=== PATIENT | male | born 1985 | race African-American/Black ===

== ENCOUNTER 2016-09-04 13:00 | Inpatient (IN) | payer OTHER ==
[2016-09-04] MEDS ORDERED: ONDANSETRON 4 MG/2 ML VIAL IVP STA ×2 (13:41→14:44)
--- NOTE | 2016-09-04 13:43 | ED ---
General Adult HPI - General Chief complaint: Nausea/Vomiting/Diarrhea Stated complaint: Headache/Not Feeling Well Time Seen by Provider: 09/04/16 13:32 Source: patient Mode of arrival: wheelchair Limitations: no limitations - History of Present Illness Initial comments: 31-year-old male history of insulin-dependent diabetes presently on Lantus and NovoLog 60 units of Lantus 8 units of NovoLog before each meal. Began onset of nausea vomiting last night chills hot and cold diarrhea. No known exposure to gastroenteritis. Has no earache sore throat runny nose no abdominal pain no blood in the stool black stools no urinary frequency urgency dysuria. - Related Data Home Medications Medication Instructions Recorded Confirmed Insulin Aspart [NovoLOG] 8 unit SQ TID 09/04/16 09/04/16 Insulin Glargine [Lantus] 24 unit SQ DAILY 09/04/16 09/04/16 Multivitamins, Thera [Multivitamin 1 tab PO DAILY 09/04/16 09/04/16 (formulary)] Allergies Allergy/AdvReac Type Severity Reaction Status Date / Time No Known Allergies Allergy Verified 09/04/16 14:48 Review of Systems ROS Statement: Those systems with pertinent positive or pertinent negative responses have been documented in the HPI. ROS Other: All systems not noted in ROS Statement are negative. Constitutional: Reports: chills, weakness. Denies: fever Eyes: Denies: eye discharge ENT: Denies: ear pain, throat pain Respiratory: Denies: cough Cardiovascular: Denies: chest pain Gastrointestinal: Denies: abdominal pain, nausea, vomiting, diarrhea Skin: Denies: rash Neurological: Denies: headache Psychiatric: Denies: anxiety, depression Hematological/Lymphatic: Denies: easy bleeding, easy bruising Past Medical History Past Medical History: Diabetes Mellitus History of Any Multi-Drug Resistant Organisms: None Reported Past Surgical History: No Surgical Hx Reported Past Psychological History: No Psychological Hx Reported Smoking Status: Never smoker Past Alcohol Use History: None Reported Past Drug Use History: None Reported General Exam Limitations: no limitations General appearance: alert, in no apparent distress Head exam: Present: atraumatic Eye exam: Present: PERRL, EOMI ENT exam: Present: normal oropharynx, mucous membranes moist, TM's normal bilaterally Respiratory exam: Present: normal lung sounds bilaterally Cardiovascular Exam: Present: regular rate, normal heart sounds GI/Abdominal exam: Present: soft, normal bowel sounds. Absent: distended, tenderness Neurological exam: Present: alert, CN II-XII intact Psychiatric exam: Present: normal affect, normal mood Skin exam: Present: warm, dry Course Vital Signs 09/04/16 09/04/16 09/04/16 13:09 15:00 16:29 Temperature 96.8 F L Pulse Rate 75 106 H 86 Respiratory 20 18 18 Rate Blood Pressure 145/83 146/87 123/72 O2 Sat by Pulse 98 100 100 Oximetry 09/04/16 18:01 Temperature Pulse Rate 89 Respiratory 18 Rate Blood Pressure 121/63 O2 Sat by Pulse 98 Oximetry Medical Decision Making - Medical Decision Making Despite IV fluids and antiemetics patient is continued be nauseated and vomiting is insulin-dependent diabetic he will need to stay for maintenance of hydration and control his diabetes will speak with the nurse practitioner for Dr. Horan in that he does not have a family doctor and will go to the hospitalist on-call - Lab Data Result diagrams: 09/04/16 14:20 09/04/16 14:20 Lab Results 09/04/16 09/04/16 Range/Units 14:20 14:20 WBC 9.9 (3.8-10.6) k/uL RBC 5.87 (4.30-5.90) m/uL Hgb 15.7 (13.0-17.5) gm/dL Hct 50.7 (39.0-53.0) % MCV 86.3 (80.0-100.0) fL MCH 26.7 (25.0-35.0) pg MCHC 30.9 L (31.0-37.0) g/dL RDW 12.4 (11.5-15.5) % Plt Count 289 (150-450) k/uL Neutrophils % 87 % Lymphocytes % 6 % Monocytes % 4 % Eosinophils % 1 % Basophils % 1 % Neutrophils # 8.6 H (1.3-7.7) k/uL Lymphocytes # 0.6 L (1.0-4.8) k/uL Monocytes # 0.4 (0-1.0) k/uL Eosinophils # 0.1 (0-0.7) k/uL Basophils # 0.1 (0-0.2) k/uL Sodium 141 (137-145) mmol/L Potassium 4.3 (3.5-5.1) mmol/L Chloride 99 (98-107) mmol/L Carbon Dioxide 27 (22-30) mmol/L Anion Gap 15 mmol/L BUN 11 (9-20) mg/dL Creatinine 0.74 (0.66-1.25) mg/dL Est GFR (MDRD) Af Amer >60 (>60 ml/min/1.73 sqM) Est GFR (MDRD) Non-Af >60 (>60 ml/min/1.73 sqM) Glucose 302 H (74-99) mg/dL Calcium 10.6 H (8.4-10.2) mg/dL Total Bilirubin 0.7 (0.2-1.3) mg/dL AST 21 (17-59) U/L ALT 34 (21-72) U/L Alkaline Phosphatase 79 (38-126) U/L Total Protein 8.0 (6.3-8.2) g/dL Albumin 4.9 (3.5-5.0) g/dL Disposition Clinical Impression: Persistent vomiting, Gastroenteritis, Insulin dependent diabetes mellitus Disposition: ADMITTED IP TO THIS HOSP Condition: Fair Time of Disposition: 18:59
[2016-09-04] MEDS: SODIUM CHLORIDE 0.9% 1,000 ML IV STA ×2 (14:23→17:57)
[2016-09-04 14:34] LABS: Basophils # (A) 0.1 k/uL (0-0.2); Basophils % (A) 1 %; CH 27.2; CHCM 31.6; Eosinophils # (A) 0.1 k/uL (0-0.7); Eosinophils % (A) 1 %; HCT 50.7 % (39.0-53.0); HDW 2.13; HGB 15.7 gm/dL (13.0-17.5); Luc # (Auto) 0.13; Luc % (Auto) 1; Lymphocytes # (A) 0.6 k/uL (1.0-4.8); Lymphocytes % (A) 6 %; MCH 26.7 pg (25.0-35.0); MCHC 30.9 g/dL (31.0-37.0); MCV 86.3 fL (80.0-100.0); Mean Platelet Volume 6.6; Monocytes # (A) 0.4 k/uL (0-1.0); Monocytes % (A) 4 %; Neutrophils # (A) 8.6 k/uL (1.3-7.7); Neutrophils % (A) 87 %; RBC 5.87 m/uL (4.30-5.90); RDW 12.4 % (11.5-15.5); WBC 9.9 k/uL (3.8-10.6); WBC (Perox) 9.78
[2016-09-04 14:45] LABS: ALT 34 U/L (21-72); AST 21 U/L (17-59); Alkaline Phosphatase 79 U/L (38-126); Anion Gap 15 mmol/L; Blood Urea Nitrogen 11 mg/dL (9-20); Calcium 10.6 mg/dL (8.4-10.2); Carbon Dioxide 27 mmol/L (22-30); Chloride 99 mmol/L (98-107); Glucose 302 mg/dL (74-99); Non-African American GFR(MDRD) >60 (>60 ml/min/1.73 sqM); Potassium 4.3 mmol/L (3.5-5.1); Sodium 141 mmol/L (137-145); Total Bilirubin 0.7 mg/dL (0.2-1.3)
[2016-09-04] MEDS ORDERED: INSULIN LISPRO (humaLOG) 300 UNIT/3 ML VIAL SQ ONE (15:41)
[2016-09-04] MEDS ORDERED: METOCLOPRAMIDE 5 MG/ML 2 ML VIAL IVP STA (15:42)
[2016-09-04] MEDS ORDERED: SODIUM CHLORIDE 0.9% 1,000 ML IV STA (15:42)
[2016-09-04] MEDS ORDERED: MECLIZINE 12.5 MG TAB PO STA (17:48)
[2016-09-04] MEDS ORDERED: NALOXONE 0.4 MG/ML 1 ML VIAL IV PRN (19:12)
[2016-09-04 19:19] LABS: Glucose,Whole Blood 181 mg/dL (75-99)
[2016-09-04] MEDS ORDERED: ONDANSETRON 4 MG/2 ML VIAL IVP PRN (20:04)
[2016-09-04 20:27] VITALS: BMI 22.8
[2016-09-04 20:40] LABS: Glucose,Whole Blood 188 mg/dL (75-99)
[2016-09-04] MEDS: LORazepam 2 MG/ML SYRINGE IV PRN (21:02)
[2016-09-04] MEDS: DEXTROSE 5%-0.45% NACL 1,000 ML IV SCH (21:15)
[2016-09-04] MEDS: INSULIN LISPRO (humaLOG) 300 UNIT/3 ML VIAL SQ SCH (21:15)
[2016-09-04] MEDS: METOCLOPRAMIDE 5 MG/ML 2 ML VIAL IVP PRN (21:15)
[2016-09-04] MEDS ORDERED: MELATONIN 3 MG TABLET PO PRN (21:30)
[2016-09-05] MEDS: ONDANSETRON 4 MG/2 ML VIAL IVP PRN ×4 (00:44→19:58)
[2016-09-05 01:45] LABS: Glucose,Whole Blood 241 mg/dL (75-99)
[2016-09-05] MEDS: INSULIN LISPRO (humaLOG) 300 UNIT/3 ML VIAL SQ SCH ×4 (01:45→20:08)
[2016-09-05] MEDS: METOCLOPRAMIDE 5 MG/ML 2 ML VIAL IVP PRN ×4 (03:04→21:10)
[2016-09-05 06:48] LABS: Glucose,Whole Blood 241 mg/dL (75-99)
[2016-09-05] MEDS: DEXTROSE 5%-0.45% NACL 1,000 ML IV SCH (08:54)
[2016-09-05] MEDS: INSULIN GLARGINE 100 UNIT/ML 10 ML VIAL SQ SCH (09:03)
[2016-09-05 12:04] LABS: Glucose,Whole Blood 190 mg/dL (75-99)
[2016-09-05 12:26] LABS: Hemoglobin A1C 9.6 % (4.2-6.1)
[2016-09-05 17:01] LABS: Glucose,Whole Blood 189 mg/dL (75-99)
[2016-09-05 20:13] LABS: Glucose,Whole Blood 196 mg/dL (75-99)
[2016-09-05] MEDS: LORazepam 2 MG/ML SYRINGE IV PRN (21:10)
--- NOTE | 2016-09-05 22:35 | HP ---
DATE OF ADMISSION: DATE OF SERVICE: 09/05/2016 CHIEF COMPLAINT: Nausea, vomiting and diarrhea. HISTORY OF PRESENTING ILLNESS: Mr. Mix is a 31-year-old male with a past medical history of insulin-dependent diabetes mellitus, coming into the hospital with the chief complaint of nausea, vomiting and diarrhea. The patient states that he woke up this morning feeling nauseated and has been throwing up continuously and was also having diarrhea. Patient felt weak and dehydrated and so came into the hospital for further evaluation. Patient denies having any chest pain, difficulty in breathing. No cough. No fevers. Complains of some abdominal soreness due to continuous vomiting. No blood in the stool. Patient denies having any dysuria. Patient is a type 1 diabetic and on insulin. He states he does not have a primary care physician and that his sister is also a diabetic, so he uses her insulin. His hemoglobin A1c is 9.6, poorly controlled. REVIEW OF SYSTEMS: All 13 systems are reviewed and negative except as mentioned in the HPI. Past medical history is significant for type 1 diabetes mellitus. PATIENT'S HOME MEDICATIONS: Lantus 24 units and NovoLog 8 units 3 times a day with meals and multivitamins. ALLERGIES: NO KNOWN DRUG ALLERGIES. PAST SURGICAL HISTORY: None. SOCIAL HISTORY: He denies having any smoking or alcohol abuse. FAMILY HISTORY: Sister has diabetes mellitus. On examination, patient's vital signs are temperature 98.8, heart rate 64, respiratory rate 16, blood pressure 134/86. Saturating at 95% on room air. GENERAL EXAMINATION: He appears to be in no acute distress. HEAD: Atraumatic, normocephalic. EYES: Pupils round and reactive to light. Oral mucosa is moist. RESPIRATORY: Breath sounds are positive. No wheeze or crackles. CARDIOVASCULAR: S1, S2 heard. GI: Abdomen is soft, nontender. Bowel sounds are positive. Hyperactive bowel sounds. BULK SUGAR HANDLER: Alert, awake, oriented x3. No focal neurological deficits. PSYCHIATRIC: Appropriate mood and affect. MUSCULOSKELETAL: No joint swelling or deformity. SKIN: No rash. PATIENT'S LABS: White count of 9.9, hemoglobin 15.7, platelets 289. Sodium 141, potassium 4.6, BUN 11, creatinine 0.74. Hemoglobin A1C of 9.6. Influenza A and B negative. ASSESSMENT AND PLAN: 1. Acute viral gastroenteritis. 2. Type 1 diabetes mellitus, poorly controlled, with an A1c of 9.6. PLAN: The patient has been started on IV fluids and he is being managed symptomatically for his nausea and vomiting. He has been restarted on insulin. Patient's symptoms seem to be improving gradually. If by tomorrow he is able to tolerate p.o., he can be discharged in the next 24 hours. SHERI
[2016-09-06] MEDS: INSULIN LISPRO (humaLOG) 300 UNIT/3 ML VIAL SQ SCH ×4 (05:24→18:49)
[2016-09-06] MEDS: DEXTROSE 5%-0.45% NACL 1,000 ML IV SCH ×3 (05:25→22:07)
[2016-09-06] MEDS: LORazepam 2 MG/ML SYRINGE IV PRN ×2 (05:25→14:30)
[2016-09-06] MEDS: ONDANSETRON 4 MG/2 ML VIAL IVP PRN ×2 (05:26→12:21)
[2016-09-06 07:19] LABS: Glucose,Whole Blood 188 mg/dL (75-99)
[2016-09-06 07:26] LABS: Basophils % (A) 0 %; CHCM 32.5; Eosinophils % (A) 1 %; HCT 43.8 % (39.0-53.0); HDW 2.18; HGB 14.7 gm/dL (13.0-17.5); Luc % (Auto) 3; Lymphocytes % (A) 16 %; MCHC 33.6 g/dL (31.0-37.0); MCV 83.3 fL (80.0-100.0); Mean Platelet Volume 6.4; Monocytes # (A) 0.5 k/uL (0-1.0); Monocytes % (A) 7 %; Neutrophils # (A) 4.7 k/uL (1.3-7.7); Neutrophils % (A) 73 %; RBC 5.26 m/uL (4.30-5.90); RDW 12.1 % (11.5-15.5); WBC 6.5 k/uL (3.8-10.6); WBC (Perox) 6.91
[2016-09-06] MEDS: INSULIN GLARGINE 100 UNIT/ML 10 ML VIAL SQ SCH (08:12)
[2016-09-06] MEDS: METOCLOPRAMIDE 5 MG/ML 2 ML VIAL IVP PRN (08:12)
[2016-09-06 09:15] LABS: Anion Gap 12 mmol/L; Blood Urea Nitrogen 9 mg/dL (9-20); Calcium 9.5 mg/dL (8.4-10.2); Carbon Dioxide 28 mmol/L (22-30); Chloride 98 mmol/L (98-107); Glucose 185 mg/dL (74-99); Non-African American GFR(MDRD) >60 (>60 ml/min/1.73 sqM); Potassium 3.3 mmol/L (3.5-5.1); Sodium 138 mmol/L (137-145)
[2016-09-06] MEDS: PANTOPRAZOLE 40 MG/10 ML VIAL IVP SCH (12:16)
[2016-09-06 12:20] LABS: Glucose,Whole Blood 157 mg/dL (75-99)
[2016-09-06] MEDS ORDERED: chlorproMAZINE 50 MG in SODIUM CHLORIDE 0.9% 50 ML IV ONE (16:00)
[2016-09-06 17:11] LABS: Glucose,Whole Blood 153 mg/dL (75-99)
[2016-09-06] MEDS: SUCRALFATE 1 GM TAB PO SCH (18:50)
--- NOTE | 2016-09-06 19:27 | P.PN ---
Subjective 31 yr old gentlemen with history of DM1, non compliant comes into the hospital with complaints of intractable nausea, vomiting. Attributed to viral gastroenteritis. Pt was restarted on ivf with d5w and sub q insulin regimen was started. Today, pt continues to have nausea, hiccups, multiple episodes of bilious emesis States to have epigastric and soem substernal chest pain associated with dry heaving. Objective - Vital Signs Vital signs: Vital Signs Temp 98.4 F 09/06/16 16:30 Pulse 64 09/06/16 17:16 Resp 16 09/06/16 17:16 BP 139/94 09/06/16 16:30 Pulse Ox 97 09/06/16 16:30 Intake & Output 09/06/16 09/06/16 09/07/16 06:59 18:59 06:59 Weight 68 kg Other: Voiding Method Toilet - Constitutional General appearance: Present: mild distress - EENT Eyes: Present: PERRLA - Neck Neck: Present: normal ROM - Respiratory Respiratory: bilateral: CTA, negative: dullness, rales, rhonchi - Cardiovascular Rhythm: regular Heart sounds: normal: S1, S2 Abnormal Heart Sounds: Absent: systolic murmur - Gastrointestinal General gastrointestinal: Present: soft. Absent: distended, organomegaly, tenderness - Neurologic Neurologic: Present: CNII-XII intact. Absent: focal deficits - Musculoskeletal Musculoskeletal: Present: gait normal - Psychiatric Psychiatric: Present: A&O x's 3, appropriate affect - Labs CBC & Chem 7: 09/06/16 07:03 09/06/16 07:03 Labs: Abnormal Lab Results - Last 24 Hours (Table) 09/06/16 Range/Units 17:02 POC Glucose (mg/dL) 153 H (75-99) mg/dL Assessment and Plan Plan: 1. Acute viral gastroenteritis 2. DM1 poorly controlled without diabetic coma 3. Epigastric pain sec to rectching. plan continue symptomatic tx. insulin regimen 1 dose of thorazine for intractable hiccups PPI Will add carafate. NPO at this time.
[2016-09-07 01:20] LABS: Glucose,Whole Blood 133 mg/dL (75-99)
[2016-09-07] MEDS: INSULIN LISPRO (humaLOG) 300 UNIT/3 ML VIAL SQ SCH ×3 (01:23→13:35)
[2016-09-07] MEDS: ONDANSETRON 4 MG/2 ML VIAL IVP PRN (04:23)
[2016-09-07 07:49] LABS: Glucose,Whole Blood 153 mg/dL (75-99)
[2016-09-07 08:06] VITALS: RESP 20
[2016-09-07] MEDS: INSULIN GLARGINE 100 UNIT/ML 10 ML VIAL SQ SCH (08:08)
[2016-09-07] MEDS: PANTOPRAZOLE 40 MG/10 ML VIAL IVP SCH (08:09)
[2016-09-07] MEDS: SUCRALFATE 1 GM TAB PO SCH ×2 (08:09→16:35)
[2016-09-07] MEDS: DEXTROSE 5%-0.45% NACL 1,000 ML IV SCH (09:28)
[2016-09-07 10:12] LABS: Basophils % (A) 0 %; CHCM 32.6; Eosinophils % (A) 0 %; HCT 43.2 % (39.0-53.0); HGB 14.7 gm/dL (13.0-17.5); Luc # (Auto) 0.22; Luc % (Auto) 3; Lymphocytes # (A) 1.4 k/uL (1.0-4.8); Lymphocytes % (A) 17 %; MCH 28.4 pg (25.0-35.0); MCHC 34.1 g/dL (31.0-37.0); MCV 83.4 fL (80.0-100.0); Mean Platelet Volume 6.5; Monocytes # (A) 0.6 k/uL (0-1.0); Monocytes % (A) 7 %; Neutrophils # (A) 5.8 k/uL (1.3-7.7); Neutrophils % (A) 72 %; RBC 5.18 m/uL (4.30-5.90); RDW 12.2 % (11.5-15.5); WBC (Perox) 8.22
[2016-09-07 10:33] LABS: ALT 32 U/L (21-72); AST 16 U/L (17-59); Alkaline Phosphatase 63 U/L (38-126); Anion Gap 10 mmol/L; Blood Urea Nitrogen 8 mg/dL (9-20); Calcium 9.1 mg/dL (8.4-10.2); Carbon Dioxide 30 mmol/L (22-30); Chloride 99 mmol/L (98-107); Glucose 168 mg/dL (74-99); Non-African American GFR(MDRD) >60 (>60 ml/min/1.73 sqM); Potassium 3.1 mmol/L (3.5-5.1); Sodium 139 mmol/L (137-145); Total Protein 6.3 g/dL (6.3-8.2)
[2016-09-07 15:41] VITALS: BP 116/56; PULSE 82; TEMP 98.8
--- NOTE | 2016-09-07 16:39 | P.DS ---
Providers Date of admission: 09/06/16 14:24 Attending physician: Gino Horan Primary care physician: Stated None Hospital Course: 31 yr old gentlemen with history of DM1, non compliant comes into the hospital with complaints of intractable nausea, vomiting. Attributed to viral gastroenteritis. Pt was restarted on ivf with d5w and sub q insulin regimen was started. Today, pt continues to have nausea, hiccups, multiple episodes of bilious emesis States to have epigastric and soem substernal chest pain associated with dry heaving. Objective - Vital Signs Vital signs: Vital Signs Temp 98.4 F 09/06/16 16:30 Pulse 64 09/06/16 17:16 Resp 16 09/06/16 17:16 BP 139/94 09/06/16 16:30 Pulse Ox 97 09/06/16 16:30 Intake & Output 09/06/16 09/06/16 09/07/16 06:59 18:59 06:59 Weight 68 kg Other: Voiding Method Toilet - Constitutional General appearance: Present: mild distress - EENT Eyes: Present: PERRLA - Neck Neck: Present: normal ROM - Respiratory Respiratory: bilateral: CTA, negative: dullness, rales, rhonchi - Cardiovascular Rhythm: regular Heart sounds: normal: S1, S2 Abnormal Heart Sounds: Absent: systolic murmur - Gastrointestinal General gastrointestinal: Present: soft. Absent: distended, organomegaly, tenderness - Neurologic Neurologic: Present: CNII-XII intact. Absent: focal deficits - Musculoskeletal Musculoskeletal: Present: gait normal - Psychiatric Psychiatric: Present: A&O x's 3, appropriate affect Assessment and Plan Plan: 1. Acute viral gastroenteritis 2. DM1 poorly controlled without diabetic coma 3. Epigastric pain sec to rectching. Patient is discharged home after tolerating food. Is discussed the importance of compliance with the monitoring glucose levels patient is given supplies, basal insulin and pre-meal insulin. Patient is recommended to follow-up with the primary care physician is referred to Dr. Stevens. Patient's episode was likely viral gastroenteritis however patient had a pretty severe episode of intractable nausea and vomiting for at least 48 hours. Patient does complain of some atypical pressure and his lower chest which is likely due to retching A may be some underlying Sara-Sutton tears as well. Hence patient will be placed on a PPI for 15 days with Carafate and is discharged home in a stable condition. Patient Condition at Discharge: Fair Plan - Discharge Summary New Discharge Prescriptions: Insulin Aspart [NovoLOG] 8 unit SQ TID #2 vial Insulin Glargine [Lantus] 24 unit SQ HS #2 vial Pantoprazole Sodium [Protonix] 40 mg PO DAILY #15 tablet. Sucralfate [Carafate] 1 gm PO AC-BID #30 tab Discharge Medication List Multivitamins, Thera [Multivitamin (formulary)] 1 tab PO DAILY 09/04/16 [History ] Insulin Aspart [NovoLOG] 8 unit SQ TID #2 vial 09/07/16 [Rx] Insulin Glargine [Lantus] 24 unit SQ HS #2 vial 09/07/16 [Rx] Pantoprazole Sodium [Protonix] 40 mg PO DAILY #15 tablet. 09/07/16 [Rx] Sucralfate [Carafate] 1 gm PO AC-BID #30 tab 09/07/16 [Rx] Follow up Appointment(s)/Referral(s): Lacy Rodarte MD [STAFF PHYSICIAN] - 09/14/16 (Office will call you with appointment time.) Patient Instructions/Handouts: Type 1 Diabetes in Adults (DC), Gastroenteritis (DC) Activity/Diet/Wound Care/Special Instructions: Cardiac, diabetic diet. [place], advance as tolerated. Discharge Disposition: HOME SELF-CARE
[2016-09-07 17:22] LABS: Glucose,Whole Blood 191 mg/dL (75-99)
== END 2016-09-07 17:48 | disposition home or self-care (01) | DRG 391 ==
LOC: EC 13:00 → 3OBS 18:59 → OBSVTOIN 09-06 14:24 → 4MS4W 09-06 15:58
PROVIDERS: ADMIT Hospitalist; ATTEND Hospitalist
DX: A08.4 Viral intestinal infection, unspecified (principal); K22.6 Gastro-esophageal laceration-hemorrhage syndrome; E10.65 Type 1 diabetes mellitus with hyperglycemia; Z79.4 Long term (current) use of insulin; Z83.3 Family history of diabetes mellitus; Z91.19 Patient's noncompliance with other medical treatment and regimen; E86.0 Dehydration; R06.6 Hiccough
CPT/HCPCS: 36415; 80048; 80053; 83036; 85025; 87502; 96361; 96374; 96375; 96376; 99285

== ENCOUNTER 2016-11-04 04:33 | Emergency (ER) | payer OTHER ==
[2016-11-04] MEDS ORDERED: ONDANSETRON 4 MG ODT STARTER PACK 2 TAB BTL PO STA (04:48)
[2016-11-04] MEDS ORDERED: ONDANSETRON ODT 4 MG TAB PO STA (04:48)
--- NOTE | 2016-11-04 04:56 | ED ---
General Adult HPI - General Chief complaint: Nausea/Vomiting/Diarrhea Stated complaint: Vomiting Time Seen by Provider: 11/04/16 04:35 Source: patient, RN notes reviewed Mode of arrival: wheelchair Limitations: no limitations - History of Present Illness Initial comments: This is a 31-year-old male who presents to the emergency department stating that he was drinking heavily on Monday night he woke up morning and was vomiting all day. Patient states she continues to vomit at this time. Patient denies any abdominal pain. Patient denies any diarrhea. Patient denies any fever chills. Patient denies any chest pain difficulty breathing or shortness of breath. Patient denies any headache patient denies numbness weakness. Patient denies lightheadedness dizziness or near syncopal episode. Patient denies any recent injury or trauma. - Related Data Home Medications Medication Instructions Recorded Confirmed Multivitamins, Thera [Multivitamin 1 tab PO DAILY 09/04/16 09/04/16 (formulary)] Previous Rx's Medication Instructions Recorded Insulin Aspart [NovoLOG] 8 unit SQ TID #2 vial 09/07/16 Insulin Glargine [Lantus] 24 unit SQ HS #2 vial 09/07/16 Pantoprazole Sodium [Protonix] 40 mg PO DAILY #15 tablet. 09/07/16 Sucralfate [Carafate] 1 gm PO AC-BID #30 tab 09/07/16 Metoclopramide [Reglan] 5 mg PO ACHS #10 tab 11/04/16 Allergies Allergy/AdvReac Type Severity Reaction Status Date / Time No Known Allergies Allergy Verified 11/04/16 04:38 Review of Systems ROS Statement: Those systems with pertinent positive or pertinent negative responses have been documented in the HPI. ROS Other: All systems not noted in ROS Statement are negative. Past Medical History Past Medical History: Diabetes Mellitus History of Any Multi-Drug Resistant Organisms: None Reported Past Surgical History: No Surgical Hx Reported Additional Past Surgical History / Comment(s): Glass removed from head Past Anesthesia/Blood Transfusion Reactions: No Reported Reaction Past Psychological History: No Psychological Hx Reported Smoking Status: Never smoker Past Alcohol Use History: None Reported Past Drug Use History: None Reported - Past Family History Father Family Medical History: Diabetes Mellitus General Exam - General Exam Comments Initial Comments: GENERAL: Patient is well-developed and well-nourished. Patient is nontoxic and well- hydrated and is in mild distress. ENT: Neck is soft and supple. No significant lymphadenopathy is noted. Oropharynx is clear. Dry membranes. Neck has full range of motion without eliciting any pain. EYES: The sclera were anicteric and conjunctiva were pink and moist. Extraocular movements were intact and pupils were equal round and reactive to light. Eyelids were unremarkable. PULMONARY: Unlabored respirations. Good breath sounds bilaterally. No audible rales rhonchi or wheezing was noted. CARDIOVASCULAR: There is a regular rate and rhythm without any murmurs gallops or rubs. ABDOMEN: Soft and nontender with normal bowel sounds. No palpable organomegaly was noted. There is no palpable pulsatile mass. SKIN: Skin is clear with no lesions or rashes and otherwise unremarkable. NEUROLOGIC: Patient is alert and oriented x3. Cranial nerves II through XII are grossly intact. Motor and sensory are also intact. Normal speech, volume and content. Symmetrical smile. MUSCULOSKELETAL: Normal extremities with adequate strength and full range of motion. No lower extremity swelling or edema. No calf tenderness. LYMPHATICS: No significant lymphadenopathy is noted PSYCHIATRIC: Normal psychiatric evaluation. Normal interpersonal interactions appears functionally intact in deals appropriately with others. No signs of depression. No signs of anxiety. Limitations: no limitations Course Vital Signs 11/04/16 04:36 Temperature 98.9 F Pulse Rate 69 Respiratory 16 Rate Blood Pressure 138/79 O2 Sat by Pulse 97 Oximetry Medical Decision Making - Medical Decision Making After patient received Zofran IV was no longer vomiting. Patient still remained pain-free. - Lab Data Result diagrams: 11/04/16 05:10 11/04/16 05:10 Lab Results 11/04/16 11/04/16 11/04/16 Range/Units 04:55 05:10 05:10 WBC 12.5 H (3.8-10.6) k/uL RBC 5.61 (4.30-5.90) m/uL Hgb 15.3 (13.0-17.5) gm/dL Hct 48.3 (39.0-53.0) % MCV 86.1 (80.0-100.0) fL MCH 27.3 (25.0-35.0) pg MCHC 31.7 (31.0-37.0) g/dL RDW 13.7 (11.5-15.5) % Plt Count 346 (150-450) k/uL Neutrophils % 88 % Lymphocytes % 6 % Monocytes % 4 % Eosinophils % 1 % Basophils % 1 % Neutrophils # 11.0 H (1.3-7.7) k/uL Lymphocytes # 0.8 L (1.0-4.8) k/uL Monocytes # 0.5 (0-1.0) k/uL Eosinophils # 0.1 (0-0.7) k/uL Basophils # 0.1 (0-0.2) k/uL Sodium 143 (137-145) mmol/L Potassium 3.9 (3.5-5.1) mmol/L Chloride 97 L (98-107) mmol/L Carbon Dioxide 29 (22-30) mmol/L Anion Gap 17 mmol/L BUN 14 (9-20) mg/dL Creatinine 0.80 (0.66-1.25) mg/dL Est GFR (MDRD) Af Amer >60 (>60 ml/min/1.73 sqM) Est GFR (MDRD) Non-Af >60 (>60 ml/min/1.73 sqM) Glucose 222 H (74-99) mg/dL POC Glucose (mg/dL) 225 H (75-99) mg/dL POC Glu Metal Numerical Tool Programmer ID Sergio Jacobo Calcium 10.6 H (8.4-10.2) mg/dL Total Bilirubin 0.9 (0.2-1.3) mg/dL AST 28 (17-59) U/L ALT 52 (21-72) U/L Alkaline Phosphatase 80 (38-126) U/L Total Protein 8.1 (6.3-8.2) g/dL Albumin 5.1 H (3.5-5.0) g/dL Disposition Clinical Impression: Acute vomiting Disposition: HOME SELF-CARE Instructions: Acute Nausea and Vomiting (ED) Prescriptions: Metoclopramide [Reglan] 5 mg PO ACHS #10 tab Referrals: Lacy Rodarte MD [Primary Care Provider] - 1-2 days Time of Disposition: 06:07
[2016-11-04] MEDS ORDERED: SODIUM CHLORIDE 0.9% 1,000 ML IV ONE (04:58)
[2016-11-04 05:15] LABS: Glucose,Whole Blood 225 mg/dL (75-99)
[2016-11-04 05:22] LABS: Basophils # (A) 0.1 k/uL (0-0.2); Basophils % (A) 1 %; CH 27.7; CHCM 32.4; Eosinophils # (A) 0.1 k/uL (0-0.7); Eosinophils % (A) 1 %; HCT 48.3 % (39.0-53.0); HDW 2.26; HGB 15.3 gm/dL (13.0-17.5); Luc % (Auto) 1; Lymphocytes # (A) 0.8 k/uL (1.0-4.8); Lymphocytes % (A) 6 %; MCH 27.3 pg (25.0-35.0); MCHC 31.7 g/dL (31.0-37.0); MCV 86.1 fL (80.0-100.0); Mean Platelet Volume 6.3; Monocytes # (A) 0.5 k/uL (0-1.0); Monocytes % (A) 4 %; Neutrophils % (A) 88 %; RBC 5.61 m/uL (4.30-5.90); RDW 13.7 % (11.5-15.5); WBC 12.5 k/uL (3.8-10.6); WBC (Perox) 11.95
[2016-11-04 05:30] LABS: ALT 52 U/L (21-72); AST 28 U/L (17-59); Alkaline Phosphatase 80 U/L (38-126); Anion Gap 17 mmol/L; Blood Urea Nitrogen 14 mg/dL (9-20); Calcium 10.6 mg/dL (8.4-10.2); Carbon Dioxide 29 mmol/L (22-30); Chloride 97 mmol/L (98-107); Glucose 222 mg/dL (74-99); Non-African American GFR(MDRD) >60 (>60 ml/min/1.73 sqM); Potassium 3.9 mmol/L (3.5-5.1); Sodium 143 mmol/L (137-145); Total Bilirubin 0.9 mg/dL (0.2-1.3); Total Protein 8.1 g/dL (6.3-8.2)
[2016-11-04] MEDS ORDERED: ONDANSETRON 4 MG/2 ML VIAL IVP STA (05:55)
[2016-11-04 06:45] VITALS: BP 146/92; PULSE 96; RESP 18; TEMP 97.6
== END 2016-11-04 06:45 | disposition home or self-care (01) ==
LOC: EC 04:33
DX: R11.10 Vomiting, unspecified (principal); Z79.899 Other long term (current) drug therapy
CPT/HCPCS: 36415; 80053; 85025; 99284; 96374; 96361; J2405; S0119

== ENCOUNTER 2017-01-26 06:16 | Emergency (ER) | payer OTHER ==
[2017-01-26] MEDS ORDERED: SODIUM CHLORIDE 0.9% 1,000 ML IV STA (06:31)
[2017-01-26] MEDS ORDERED: ONDANSETRON 4 MG/2 ML VIAL IVP STA (06:31)
--- NOTE | 2017-01-26 06:34 | ED ---
General Adult HPI - General Source: patient, RN notes reviewed Mode of arrival: ambulatory Limitations: no limitations <Mitchell Wong - Last Filed: 01/26/17 06:45> <Hugo Lou - Last Filed: 01/26/17 07:36> - General Chief complaint: Nausea/Vomiting/Diarrhea Stated complaint: Vomiting Time Seen by Provider: 01/26/17 06:20 - History of Present Illness Initial comments: This is a 31-year-old male presents emergency department stating that he woke up at 3:00 this morning vomiting. Patient states he was drinking about 9:00 Went to bed and when he woke up he began vomiting. Patient states she also had a bout of diarrhea. Patient denies any abdominal pain. Patient denies any headache patient denies numbness weakness. Patient denies any chest pain palpitations difficulty breathing shortness of breath. Initially patient stated he might have drank too much and as well as vomiting but when I told him he needs to stop drinking because he has been to the emergency department for the same complaint previously he then stated he didn't drink that much. Patient denies any injury or trauma. (Mitchell Wong) - Related Data Home Medications Medication Instructions Recorded Confirmed Multivitamins, Thera [Multivitamin 1 tab PO DAILY 09/04/16 09/04/16 (formulary)] Previous Rx's Medication Instructions Recorded Insulin Aspart [NovoLOG] 8 unit SQ TID #2 vial 09/07/16 Insulin Glargine [Lantus] 24 unit SQ HS #2 vial 09/07/16 Pantoprazole Sodium [Protonix] 40 mg PO DAILY #15 tablet. 09/07/16 Sucralfate [Carafate] 1 gm PO AC-BID #30 tab 09/07/16 Metoclopramide [Reglan] 5 mg PO ACHS #10 tab 11/04/16 Ondansetron Odt [Zofran Odt] 4 mg PO Q8HR PRN #10 tab 01/26/17 Allergies Allergy/AdvReac Type Severity Reaction Status Date / Time No Known Allergies Allergy Verified 11/04/16 04:38 Review of Systems ROS Other: All systems not noted in ROS Statement are negative. <Mitchell Wong - Last Filed: 01/26/17 06:45> ROS Other: All systems not noted in ROS Statement are negative. <Hugo Lou - Last Filed: 01/26/17 07:36> ROS Statement: Those systems with pertinent positive or pertinent negative responses have been documented in the HPI. Past Medical History Past Medical History: Diabetes Mellitus History of Any Multi-Drug Resistant Organisms: None Reported Past Surgical History: No Surgical Hx Reported Additional Past Surgical History / Comment(s): Glass removed from head Past Anesthesia/Blood Transfusion Reactions: No Reported Reaction Past Psychological History: No Psychological Hx Reported Smoking Status: Never smoker Past Alcohol Use History: Occasional Past Drug Use History: None Reported - Past Family History Father Family Medical History: Diabetes Mellitus <Mitchell Wong - Last Filed: 01/26/17 06:45> General Exam Limitations: no limitations <Mitchell Wong - Last Filed: 01/26/17 06:45> <Hugo Lou - Last Filed: 01/26/17 07:36> - General Exam Comments Initial Comments: GENERAL: Patient is well-developed and well-nourished. Patient is nontoxic and well- hydrated and is in mild distress. ENT: Neck is soft and supple. No significant lymphadenopathy is noted. Oropharynx is clear. Moist mucous membranes. Neck has full range of motion without eliciting any pain. EYES: The sclera were anicteric and conjunctiva were pink and moist. Extraocular movements were intact and pupils were equal round and reactive to light. Eyelids were unremarkable. PULMONARY: Unlabored respirations. Good breath sounds bilaterally. No audible rales rhonchi or wheezing was noted. CARDIOVASCULAR: There is a regular rate and rhythm without any murmurs gallops or rubs. ABDOMEN: Soft and nontender with normal bowel sounds. No palpable organomegaly was noted. There is no palpable pulsatile mass. SKIN: Skin is clear with no lesions or rashes and otherwise unremarkable. NEUROLOGIC: Patient is alert and oriented x3. Cranial nerves II through XII are grossly intact. Motor and sensory are also intact. Normal speech, volume and content. Symmetrical smile. MUSCULOSKELETAL: Normal extremities with adequate strength and full range of motion. LYMPHATICS: No significant lymphadenopathy is noted PSYCHIATRIC: Normal psychiatric evaluation. (Mitchell Wong) Medical Decision Making <Mitchell Wong - Last Filed: 01/26/17 06:45> - Lab Data Result diagrams: 01/26/17 06:40 01/26/17 06:40 <Hugo Lou - Last Filed: 01/26/17 07:36> - Medical Decision Making Dr. Lou will be taking over the care of this patient at 7 AM (Mitchell Wong) Patient reexamined and symptom-free. Patient has no complaints however request medication to help him sleep. Patient is advised to follow-up with his primary care physician for this. Abdomen soft and nontender. (Hugo Lou) - Lab Data Lab Results 01/26/17 01/26/17 Range/Units 06:40 06:40 WBC 6.5 (3.8-10.6) k/uL RBC 5.23 (4.30-5.90) m/uL Hgb 14.3 (13.0-17.5) gm/dL Hct 44.3 (39.0-53.0) % MCV 84.7 (80.0-100.0) fL MCH 27.4 (25.0-35.0) pg MCHC 32.3 (31.0-37.0) g/dL RDW 13.9 (11.5-15.5) % Plt Count 303 (150-450) k/uL Neutrophils % 54 % Lymphocytes % 34 % Monocytes % 6 % Eosinophils % 3 % Basophils % 1 % Neutrophils # 3.5 (1.3-7.7) k/uL Lymphocytes # 2.2 (1.0-4.8) k/uL Monocytes # 0.4 (0-1.0) k/uL Eosinophils # 0.2 (0-0.7) k/uL Basophils # 0.0 (0-0.2) k/uL Sodium 145 (137-145) mmol/L Potassium 3.8 (3.5-5.1) mmol/L Chloride 107 (98-107) mmol/L Carbon Dioxide 29 (22-30) mmol/L Anion Gap 9 mmol/L BUN 8 L (9-20) mg/dL Creatinine 0.79 (0.66-1.25) mg/dL Est GFR (MDRD) Af Amer >60 (>60 ml/min/1.73 sqM) Est GFR (MDRD) Non-Af >60 (>60 ml/min/1.73 sqM) Glucose 146 H (74-99) mg/dL Calcium 9.7 (8.4-10.2) mg/dL Total Bilirubin 0.5 (0.2-1.3) mg/dL AST 20 (17-59) U/L ALT 31 (21-72) U/L Alkaline Phosphatase 55 (38-126) U/L Total Protein 6.9 (6.3-8.2) g/dL Albumin 4.4 (3.5-5.0) g/dL Amylase 76 (30-110) U/L Lipase 70 (23-300) U/L Disposition <Mitchell Wong - Last Filed: 01/26/17 06:45> Time of Disposition: 07:36 <Hugo Lou - Last Filed: 01/26/17 07:36> Clinical Impression: Vomiting Disposition: HOME SELF-CARE Condition: Stable Instructions: Acute Nausea and Vomiting (ED) Additional Instructions: Please follow-up with primary care physician in the next day or 2 for recheck. Return for uncontrolled vomiting, pain, fever, worsening symptoms or other concerns. Prescriptions: Ondansetron Odt [Zofran Odt] 4 mg PO Q8HR PRN #10 tab PRN Reason: Nausea Referrals: Lacy Rodarte MD [Primary Care Provider] - 1-2 days
[2017-01-26 06:51] LABS: Basophils % (A) 1 %; CHCM 33.2; Eosinophils # (A) 0.2 k/uL (0-0.7); Eosinophils % (A) 3 %; HCT 44.3 % (39.0-53.0); HDW 2.26; HGB 14.3 gm/dL (13.0-17.5); Luc # (Auto) 0.19; Luc % (Auto) 3; Lymphocytes # (A) 2.2 k/uL (1.0-4.8); Lymphocytes % (A) 34 %; MCH 27.4 pg (25.0-35.0); MCHC 32.3 g/dL (31.0-37.0); MCV 84.7 fL (80.0-100.0); Mean Platelet Volume 6.9; Monocytes # (A) 0.4 k/uL (0-1.0); Monocytes % (A) 6 %; Neutrophils # (A) 3.5 k/uL (1.3-7.7); Neutrophils % (A) 54 %; RBC 5.23 m/uL (4.30-5.90); RDW 13.9 % (11.5-15.5); WBC 6.5 k/uL (3.8-10.6); WBC (Perox) 6.14
[2017-01-26 07:00] LABS: ALT 31 U/L (21-72); AST 20 U/L (17-59); Alkaline Phosphatase 55 U/L (38-126); Amylase 76 U/L (30-110); Anion Gap 9 mmol/L; Blood Urea Nitrogen 8 mg/dL (9-20); Calcium 9.7 mg/dL (8.4-10.2); Carbon Dioxide 29 mmol/L (22-30); Chloride 107 mmol/L (98-107); Glucose 146 mg/dL (74-99); Non-African American GFR(MDRD) >60 (>60 ml/min/1.73 sqM); Potassium 3.8 mmol/L (3.5-5.1); Sodium 145 mmol/L (137-145); Total Bilirubin 0.5 mg/dL (0.2-1.3); Total Protein 6.9 g/dL (6.3-8.2)
[2017-01-26 07:47] VITALS: BP 102/87; PULSE 73; RESP 18; TEMP 98.1
== END 2017-01-26 08:05 | disposition home or self-care (01) ==
LOC: EC 06:16
DX: R11.10 Vomiting, unspecified (principal); R19.7 Diarrhea, unspecified; Z79.899 Other long term (current) drug therapy
CPT/HCPCS: 36415; 80053; 82150; 83690; 85025; 99284; 96374; 96361; J2405

== ENCOUNTER 2017-01-31 13:57 | Emergency (ER) | payer OTHER ==
[2017-01-31 14:02] VITALS: TEMP 98.1
[2017-01-31] MEDS ORDERED: SODIUM CHLORIDE 0.9% 1,000 ML IV STA (14:46)
[2017-01-31] MEDS ORDERED: ONDANSETRON 4 MG/2 ML VIAL IVP STA (14:47)
--- NOTE | 2017-01-31 14:56 | ED ---
Nausea/Vomiting/Diarrhea HPI - General Chief complaint: Nausea/Vomiting/Diarrhea Stated complaint: Vomiting Time Seen by Provider: 01/31/17 14:41 Source: patient, RN notes reviewed Mode of arrival: ambulatory Limitations: no limitations - History of Present Illness Initial comments: This a 31-year-old male presents emergency Department chief complaint nausea vomiting. Patient states a few days ago for similar symptoms. He did admit to drinking at the time but states he has not been drinking states that he tried eat some today started vomiting again. Patient states he is diabetic. Patient denies any fevers or chills. Patient denies any diarrhea or constipation. He states he does occasionally have some left-sided abdominal pain. Patient states that he did try Zofran last few days but he states he ran out. Patient denies any flank pain at this time. Denies any flank pain. - Related Data Home Medications Medication Instructions Recorded Confirmed Insulin Aspart [NovoLOG] 8 unit SQ AC-TID 01/26/17 01/31/17 Ibuprofen [Motrin] 200 mg PO BID PRN 01/31/17 01/31/17 Previous Rx's Medication Instructions Recorded Insulin Glargine [Lantus] 24 unit SQ HS #2 vial 09/07/16 Omeprazole [PriLOSEC] 20 mg PO AC-BRKFST #14 cap 01/31/17 Ondansetron Odt [Zofran Odt] 4 mg PO Q8HR PRN #14 tab 01/31/17 Allergies Allergy/AdvReac Type Severity Reaction Status Date / Time No Known Allergies Allergy Verified 01/31/17 15:30 Review of Systems ROS Statement: Those systems with pertinent positive or pertinent negative responses have been documented in the HPI. ROS Other: All systems not noted in ROS Statement are negative. Past Medical History Past Medical History: Diabetes Mellitus History of Any Multi-Drug Resistant Organisms: None Reported Past Surgical History: No Surgical Hx Reported Additional Past Surgical History / Comment(s): Glass removed from head Past Anesthesia/Blood Transfusion Reactions: No Reported Reaction Past Psychological History: No Psychological Hx Reported Smoking Status: Never smoker Past Alcohol Use History: Occasional Past Drug Use History: None Reported - Past Family History Father Family Medical History: Diabetes Mellitus General Exam Limitations: no limitations General appearance: alert, in no apparent distress Respiratory exam: Present: normal lung sounds bilaterally. Absent: respiratory distress, wheezes, rales, rhonchi, stridor Cardiovascular Exam: Present: regular rate, normal rhythm, normal heart sounds. Absent: systolic murmur, diastolic murmur, rubs, gallop, clicks GI/Abdominal exam: Present: soft, normal bowel sounds. Absent: distended, tenderness, guarding, rebound, rigid Back exam: Absent: CVA tenderness (R), CVA tenderness (L) Skin exam: Present: warm, dry, intact, normal color. Absent: rash Course Vital Signs 01/31/17 13:59 Temperature 98.1 F Pulse Rate 86 Respiratory 20 Rate Blood Pressure 138/94 O2 Sat by Pulse 98 Oximetry Medical Decision Making - Medical Decision Making 31-year-old male present emergency department for nausea vomiting. Patient hadn 't area visits for similar symptoms. Patient states he does feel improved at this time. Patient was hydrated given potassium. Patient discharged on Zofran and omeprazole for possible gastrointestinal symptoms. Patient will follow-up with Dr. Rodarte in 2 days return parameters were discussed. - Lab Data Result diagrams: 01/31/17 14:55 01/31/17 14:55 Lab Results 01/31/17 01/31/17 01/31/17 Range/Units 14:55 14:55 15:20 WBC 6.0 (3.8-10.6) k/uL RBC 6.27 H (4.30-5.90) m/uL Hgb 17.1 (13.0-17.5) gm/dL Hct 51.5 (39.0-53.0) % MCV 82.1 (80.0-100.0) fL MCH 27.2 (25.0-35.0) pg MCHC 33.1 (31.0-37.0) g/dL RDW 14.0 (11.5-15.5) % Plt Count 315 (150-450) k/uL Neutrophils % 54 % Lymphocytes % 31 % Monocytes % 9 % Eosinophils % 1 % Basophils % 1 % Neutrophils # 3.2 (1.3-7.7) k/uL Lymphocytes # 1.8 (1.0-4.8) k/uL Monocytes # 0.5 (0-1.0) k/uL Eosinophils # 0.1 (0-0.7) k/uL Basophils # 0.0 (0-0.2) k/uL Sodium 132 L (137-145) mmol/L Potassium 3.2 L (3.5-5.1) mmol/L Chloride 86 L (98-107) mmol/L Carbon Dioxide 33 H (22-30) mmol/L Anion Gap 13 mmol/L BUN 18 (9-20) mg/dL Creatinine 0.90 (0.66-1.25) mg/dL Est GFR (MDRD) Af Amer >60 (>60 ml/min/1.73 sqM) Est GFR (MDRD) Non-Af >60 (>60 ml/min/1.73 sqM) Glucose 264 H (74-99) mg/dL Calcium 10.1 (8.4-10.2) mg/dL Total Bilirubin 1.3 (0.2-1.3) mg/dL AST 22 (17-59) U/L ALT 37 (21-72) U/L Alkaline Phosphatase 77 (38-126) U/L Total Protein 7.5 (6.3-8.2) g/dL Albumin 4.9 (3.5-5.0) g/dL Amylase 31 (30-110) U/L Lipase 94 (23-300) U/L Urine Color Yellow Urine Appearance Clear (Clear) Urine pH 6.5 (5.0-8.0) Ur Specific [place] 1.022 (1.001-1.035) Urine Protein 1+ H (Negative) Urine Glucose (UA) 3+ H (Negative) Urine Ketones 1+ H (Negative) Urine Blood Negative (Negative) Urine Nitrite Negative (Negative) Urine Bilirubin Negative (Negative) Urine Urobilinogen 2.0 (<2.0) mg/dL Ur Leukocyte Esterase Negative (Negative) Urine RBC 2 (0-5) /hpf Urine WBC 5 (0-5) /hpf Hyaline Casts 1 (0-2) /lpf Urine Mucus Rare H (None) /hpf Acetone, Qual Negative (Negative) Disposition Clinical Impression: Nausea & vomiting, Hypokalemia Disposition: HOME SELF-CARE Condition: Stable Instructions: Acute Nausea and Vomiting (ED) Additional Instructions: Please return to the Emergency Department if symptoms worsen or any other concerns. Prescriptions: Omeprazole [PriLOSEC] 20 mg PO AC-BRKFST #14 cap Ondansetron Odt [Zofran Odt] 4 mg PO Q8HR PRN #14 tab PRN Reason: Nausea Referrals: Lacy Rodarte MD [Primary Care Provider] - 1-2 days Time of Disposition: 16:03
[2017-01-31 15:19] LABS: Basophils % (A) 1 %; CH 28.6; Eosinophils # (A) 0.1 k/uL (0-0.7); Eosinophils % (A) 1 %; HCT 51.5 % (39.0-53.0); HDW 2.19; HGB 17.1 gm/dL (13.0-17.5); Luc # (Auto) 0.27; Luc % (Auto) 5; Lymphocytes # (A) 1.8 k/uL (1.0-4.8); Lymphocytes % (A) 31 %; MCH 27.2 pg (25.0-35.0); MCHC 33.1 g/dL (31.0-37.0); MCV 82.1 fL (80.0-100.0); Mean Platelet Volume 6.9; Monocytes # (A) 0.5 k/uL (0-1.0); Monocytes % (A) 9 %; Neutrophils # (A) 3.2 k/uL (1.3-7.7); Neutrophils % (A) 54 %; RBC 6.27 m/uL (4.30-5.90); WBC (Perox) 5.84
[2017-01-31 15:28] LABS: ALT 37 U/L (21-72); AST 22 U/L (17-59); Alkaline Phosphatase 77 U/L (38-126); Amylase 31 U/L (30-110); Anion Gap 13 mmol/L; Blood Urea Nitrogen 18 mg/dL (9-20); Calcium 10.1 mg/dL (8.4-10.2); Carbon Dioxide 33 mmol/L (22-30); Chloride 86 mmol/L (98-107); Glucose 264 mg/dL (74-99); Non-African American GFR(MDRD) >60 (>60 ml/min/1.73 sqM); Potassium 3.2 mmol/L (3.5-5.1); Sodium 132 mmol/L (137-145); Total Bilirubin 1.3 mg/dL (0.2-1.3); Total Protein 7.5 g/dL (6.3-8.2)
[2017-01-31 15:34] LABS: Appearance,Urine Clear (Clear); Bilirubin,Urine Negative (Negative); Glucose,Urine (UA) 3+ (Negative); Ketones,Urine 1+ (Negative); Leukocyte Esterase,Urine Negative (Negative); Mucus,Urine Rare /hpf; Nitrite,Urine Negative (Negative); PH, Urine 6.5 (5.0-8.0); Particle Count 3237; Protein,Urine 1+ (Negative); RBC,Urine 2 /hpf (0-5); Specific Gravity,Urine 1.022 (1.001-1.035); UA Billing (MACRO vs. MICRO) MICRO; WBC,Urine 5 /hpf (0-5)
[2017-01-31] MEDS ORDERED: POTASSIUM CHLORIDE ER 20 MEQ TAB.ER PO STA (15:34)
--- NOTE | 2017-01-31 15:40 | XR ---
Abdomen HISTORY: Nausea vomiting and dizziness Frontal view of the abdomen on 2 images No comparisons Bone mineralization is maintained. There is no pneumoperitoneum or bowel obstruction. No evident path ologic calcification. Lung bases are clear. There may be a slight spinal curvature. IMPRESSION: Nonobstructive bowel gas pattern. Follow-up as indicated.
[2017-01-31 16:12] VITALS: BP 148/66; PULSE 88; RESP 16
== END 2017-01-31 16:17 | disposition home or self-care (01) ==
LOC: EC 13:57
DX: E87.6 Hypokalemia (principal); R11.2 Nausea with vomiting, unspecified; E11.9 Type 2 diabetes mellitus without complications; Z79.4 Long term (current) use of insulin
CPT/HCPCS: 36415; 80053; 82150; 82009; 83690; 85025; 81001; 74000; 99284; 96374; 96361; J2405

== ENCOUNTER 2017-06-27 10:36 | Emergency (ER) | payer OTHER ==
[2017-06-27 11:12] LABS: Glucose,Whole Blood 379 mg/dL (75-99)
--- NOTE | 2017-06-27 11:49 | ED ---
SOB HPI - General Chief Complaint: Shortness of Breath Stated Complaint: Flu Time Seen by Provider: 06/27/17 10:56 Source: patient Mode of arrival: ambulatory Limitations: no limitations - History of Present Illness Initial Comments: This is a 31-year-old male who presents to the ED with a chief complaint of shortness of breath, nausea and vomiting which began one day ago. The patient states he started feeling these symptoms suddenly yesterday, and is unable to retain fluids or food. He reports that he is short of breath because his throat feels swollen and constricted from vomiting. The patient is a type II diabetic and last took insulin two days ago. He denies abdominal pain, chest pain, diarrhea, syncope or recent drug use. - Related Data Previous Rx's Medication Instructions Recorded Insulin Aspart [NovoLOG 8 unit SQ AC-TID #1 vial 06/27/17 (formulary)] Insulin Glargine [Lantus] 24 unit SQ HS #2 vial 06/27/17 Allergies Allergy/AdvReac Type Severity Reaction Status Date / Time No Known Allergies Allergy Verified 06/27/17 11:06 Review of Systems ROS Statement: Those systems with pertinent positive or pertinent negative responses have been documented in the HPI. ROS Other: All systems not noted in ROS Statement are negative. Past Medical History Past Medical History: Diabetes Mellitus History of Any Multi-Drug Resistant Organisms: None Reported Past Surgical History: No Surgical Hx Reported Additional Past Surgical History / Comment(s): Glass removed from head Past Anesthesia/Blood Transfusion Reactions: No Reported Reaction Past Psychological History: No Psychological Hx Reported Smoking Status: Never smoker Past Alcohol Use History: Occasional Past Drug Use History: None Reported - Past Family History Father Family Medical History: Diabetes Mellitus General Exam Limitations: no limitations General appearance: alert, in no apparent distress Head exam: Present: atraumatic, normocephalic, normal inspection Eye exam: Present: normal appearance, PERRL, EOMI. Absent: scleral icterus, conjunctival injection, periorbital swelling Respiratory exam: Present: rhonchi. Absent: stridor, chest wall tenderness, accessory muscle use (Rhonchi auscultated in right lung vazquez.) Cardiovascular Exam: Present: regular rate, normal rhythm, normal heart sounds. Absent: systolic murmur, diastolic murmur, rubs, gallop, clicks GI/Abdominal exam: Present: soft, normal bowel sounds. Absent: distended, tenderness, guarding, rebound, rigid, organomegaly, bruit, pulsatile mass Extremities exam: Present: normal inspection, full ROM, normal capillary refill. Absent: tenderness, pedal edema, joint swelling, calf tenderness Back exam: Present: normal inspection Neurological exam: Present: alert, oriented X3, CN II-XII intact Psychiatric exam: Present: normal affect, normal mood Skin exam: Present: warm, dry, intact, normal color. Absent: rash Course Vital Signs 06/27/17 10:52 Temperature 98.6 F Pulse Rate 90 Respiratory 18 Rate Blood Pressure 136/99 O2 Sat by Pulse 96 Oximetry - Reevaluation(s) Reevaluation #1: 06/27/17 13:27 Patient was updated ON lab results patient states she does feel improved at this time. He has no shortness of breath WITH swallowing. Medical Decision Making - Medical Decision Making 31-year-old male present emergency from for nausea vomiting not feeling well. Patient has had several ER visits for running out of insulin. Patient denies any scheduled primary care physician appointment and return for any worsening symptoms - Lab Data Result diagrams: 06/27/17 11:44 06/27/17 11:44 Lab Results 06/27/17 06/27/17 06/27/17 Range/Units 11:09 11:44 11:44 WBC 11.0 H (3.8-10.6) k/uL RBC 6.27 H (4.30-5.90) m/uL Hgb 16.8 (13.0-17.5) gm/dL Hct 51.9 (39.0-53.0) % MCV 82.7 (80.0-100.0) fL MCH 26.7 (25.0-35.0) pg MCHC 32.3 (31.0-37.0) g/dL RDW 12.2 (11.5-15.5) % Plt Count 347 (150-450) k/uL Neutrophils % 83 % Lymphocytes % 9 % Monocytes % 6 % Eosinophils % 1 % Basophils % 0 % Neutrophils # 9.1 H (1.3-7.7) k/uL Lymphocytes # 0.9 L (1.0-4.8) k/uL Monocytes # 0.7 (0-1.0) k/uL Eosinophils # 0.1 (0-0.7) k/uL Basophils # 0.0 (0-0.2) k/uL Sodium 137 (137-145) mmol/L Potassium 4.0 (3.5-5.1) mmol/L Chloride 83 L (98-107) mmol/L Carbon Dioxide 36 H (22-30) mmol/L Anion Gap 18 mmol/L BUN 34 H (9-20) mg/dL Creatinine 1.09 (0.66-1.25) mg/dL Est GFR (MDRD) Af Amer >60 (>60 ml/min/1.73 sqM) Est GFR (MDRD) Non-Af >60 (>60 ml/min/1.73 sqM) Glucose 419 H (74-99) mg/dL POC Glucose (mg/dL) 379 H (75-99) mg/dL POC Glu Sponge Clipper ID Jaki Garcia Plasma Lactic Acid Domingo (0.7-2.0) mmol/L Calcium 10.9 H (8.4-10.2) mg/dL Total Bilirubin 0.8 (0.2-1.3) mg/dL AST 23 (17-59) U/L ALT 36 (21-72) U/L Alkaline Phosphatase 102 (38-126) U/L Total Protein 8.3 H (6.3-8.2) g/dL Albumin 5.1 H (3.5-5.0) g/dL Amylase 119 H (30-110) U/L Lipase 135 (23-300) U/L Acetone, Qual Negative (Negative) Influenza Type A RNA (Not Detectd) Influenza Type B (PCR) (Not Detectd) 06/27/17 06/27/17 06/27/17 Range/Units 11:44 12:09 12:50 WBC (3.8-10.6) k/uL RBC (4.30-5.90) m/uL Hgb (13.0-17.5) gm/dL Hct (39.0-53.0) % MCV (80.0-100.0) fL MCH (25.0-35.0) pg MCHC (31.0-37.0) g/dL RDW (11.5-15.5) % Plt Count (150-450) k/uL Neutrophils % % Lymphocytes % % Monocytes % % Eosinophils % % Basophils % % Neutrophils # (1.3-7.7) k/uL Lymphocytes # (1.0-4.8) k/uL Monocytes # (0-1.0) k/uL Eosinophils # (0-0.7) k/uL Basophils # (0-0.2) k/uL Sodium (137-145) mmol/L Potassium (3.5-5.1) mmol/L Chloride (98-107) mmol/L Carbon Dioxide (22-30) mmol/L Anion Gap mmol/L BUN (9-20) mg/dL Creatinine (0.66-1.25) mg/dL Est GFR (MDRD) Af Amer (>60 ml/min/1.73 sqM) Est GFR (MDRD) Non-Af (>60 ml/min/1.73 sqM) Glucose (74-99) mg/dL POC Glucose (mg/dL) 346 H (75-99) mg/dL POC Glu Sponge Clipper ID LeandroallisonEugenio Plasma Lactic Acid Domingo 2.3 H* (0.7-2.0) mmol/L Calcium (8.4-10.2) mg/dL Total Bilirubin (0.2-1.3) mg/dL AST (17-59) U/L ALT (21-72) U/L Alkaline Phosphatase (38-126) U/L Total Protein (6.3-8.2) g/dL Albumin (3.5-5.0) g/dL Amylase (30-110) U/L Lipase (23-300) U/L Acetone, Qual (Negative) Influenza Type A RNA Not Detected (Not Detectd) Influenza Type B (PCR) Not Detected (Not Detectd) Disposition Clinical Impression: Noncompliance with medication regimen, Nausea & vomiting, Insulin dependent diabetes mellitus, Hyperglycemia Disposition: HOME SELF-CARE Condition: Stable Instructions: Acute Nausea and Vomiting (ED) Additional Instructions: Please return to the Emergency Department if symptoms worsen or any other concerns. Prescriptions: Insulin Aspart [NovoLOG (formulary)] 8 unit SQ AC-TID #1 vial Insulin Glargine [Lantus] 24 unit SQ HS #2 vial Referrals: Lacy Rodarte MD [Primary Care Provider] - 1-2 days Time of Disposition: 13:33
[2017-06-27 11:57] LABS: Basophils % (A) 0 %; Eosinophils # (A) 0.1 k/uL (0-0.7); Eosinophils % (A) 1 %; HCT 51.9 % (39.0-53.0); HGB 16.8 gm/dL (13.0-17.5); Lymphocytes # (A) 0.9 k/uL (1.0-4.8); Lymphocytes % (A) 9 %; MCH 26.7 pg (25.0-35.0); MCHC 32.3 g/dL (31.0-37.0); MCV 82.7 fL (80.0-100.0); Mean Platelet Volume 6.5; Monocytes # (A) 0.7 k/uL (0-1.0); Monocytes % (A) 6 %; Neutrophils # (A) 9.1 k/uL (1.3-7.7); Neutrophils % (A) 83 %; Platelet Count 347 k/uL (150-450); RBC 6.27 m/uL (4.30-5.90); RDW 12.2 % (11.5-15.5)
[2017-06-27] MEDS ORDERED: SODIUM CHLORIDE 0.9% 2,000 ML IV ONE (12:11)
[2017-06-27] MEDS ORDERED: ONDANSETRON 4 MG/2 ML VIAL IVP STA (12:11)
[2017-06-27 12:17] LABS: ALT 36 U/L (21-72); AST 23 U/L (17-59); Albumin 5.1 g/dL (3.5-5.0); Alkaline Phosphatase 102 U/L (38-126); Amylase 119 U/L (30-110); Anion Gap 18 mmol/L; Blood Urea Nitrogen 34 mg/dL (9-20); Calcium 10.9 mg/dL (8.4-10.2); Carbon Dioxide 36 mmol/L (22-30); Chloride 83 mmol/L (98-107); Glucose 419 mg/dL (74-99); Lipase 135 U/L (23-300); Sodium 137 mmol/L (137-145); Total Bilirubin 0.8 mg/dL (0.2-1.3); Total Protein 8.3 g/dL (6.3-8.2)
[2017-06-27] MEDS ORDERED: INSULIN REGULAR 100 UNIT/ML VIAL IV ONE (12:23)
--- NOTE | 2017-06-27 12:46 | XR ---
EXAMINATION TYPE: XR chest 2V DATE OF EXAM: 06/27/2017 COMPARISON: NONE HISTORY: Cough and chest pain per order. TECHNIQUE: Frontal and lateral views of the chest are obtained. FINDINGS: There is no focal air space opacity, pleural effusion, or pneumothorax seen. The cardiac silhouette size is within normal limits. The osseous structures are intact. IMPRESSION: No acute cardiopulmonary process.
[2017-06-27 12:53] LABS: Glucose,Whole Blood 346 mg/dL (75-99)
[2017-06-27 13:40] VITALS: BP 124/76; PULSE 95; RESP 16; TEMP 98.7
[2017-06-27] MEDS ORDERED: ONDANSETRON 4 MG ODT STARTER PACK 2 TAB BTL PO STA (13:41)
== END 2017-06-27 13:47 | disposition home or self-care (01) ==
LOC: EC 10:36
DX: E11.65 Type 2 diabetes mellitus with hyperglycemia (principal); Z91.14 Patient's other noncompliance with medication regimen; R06.02 Shortness of breath
CPT/HCPCS: 99285; 96374; 96361 ×2; 36415; 80053; 82150; 82009; 83605; 83690; 85025; 87502; 71046; J2405; S0119

== ENCOUNTER 2017-08-08 10:05 | Observation (INO) | payer OTHER ==
[2017-08-08] MEDS ORDERED: ONDANSETRON 4 MG/2 ML VIAL IVP STA (11:28)
[2017-08-08] MEDS ORDERED: SODIUM CHLORIDE 0.9% 1,000 ML IV STA ×2 (11:28)
[2017-08-08] MEDS ORDERED: FAMOTIDINE 20 MG/2 ML VIAL IV STA (11:29)
[2017-08-08] MEDS ORDERED: ACETAMINOPHEN TAB 500 MG TAB PO STA (11:29)
--- NOTE | 2017-08-08 11:34 | ED ---
General Adult HPI - General Chief complaint: Abdominal Pain Stated complaint: Sweats Time Seen by Provider: 08/08/17 11:24 Source: patient Mode of arrival: ambulatory Limitations: no limitations - History of Present Illness Initial comments: This 32-year-old white male presents with a complaint of some nausea and vomiting and diarrhea. Onset occurred this morning. He states that he has vomited approximately 10 times. He has some chills but denies any known fever. He has had occasional cough. He does have a long history of diabetes but states that his blood sugar was in the 100s today. He denies any abdominal pain. He denies any other complaints or modifying factors. - Related Data Home Medications Medication Instructions Recorded Confirmed Insulin Glargine,Hum.rec.anlog 24 unit SQ HS 08/08/17 08/08/17 [Basaglar Kwikpen U-100] Previous Rx's Medication Instructions Recorded Insulin Aspart [NovoLOG 8 unit SQ AC-TID #1 vial 06/27/17 (formulary)] Allergies Allergy/AdvReac Type Severity Reaction Status Date / Time latex Allergy Rash/Hives Verified 08/08/17 12:51 Review of Systems ROS Statement: Those systems with pertinent positive or pertinent negative responses have been documented in the HPI. ROS Other: All systems not noted in ROS Statement are negative. Past Medical History Past Medical History: Asthma, Diabetes Mellitus Additional Past Medical History / Comment(s): IDDM type I, neuropathy bilateral feet, bronchitis History of Any Multi-Drug Resistant Organisms: None Reported Past Surgical History: No Surgical Hx Reported Additional Past Surgical History / Comment(s): Glass removed from head Past Anesthesia/Blood Transfusion Reactions: No Reported Reaction Past Psychological History: No Psychological Hx Reported Smoking Status: Never smoker Past Alcohol Use History: None Reported Past Drug Use History: Marijuana - Past Family History Father Family Medical History: Diabetes Mellitus Additional Family Medical History / Comment(s): Diabetes runs in father's side of family Mother Family Medical History: Hypertension General Exam - General Exam Comments Initial Comments: GENERAL: The patient is well nourished and well hydrated. VITAL SIGNS: Heart rate, blood pressure, respiratory rate reviewed as recorded in nurse's notes. EYES: Pupils are round and reactive. Extraocular movements are intact. No conjunctival / lid redness or swelling. ENT: No external evidence of injury, swelling, or ecchymosis. Airway is patent. Throat is clear. NECK: Nontender. No swelling or evidence of injury. No subcutaneous emphysema. Trachea is midline. No thyroid mass. HEART: Regular rate and rhythm. Good peripheral pulses. LUNGS/CHEST: Breath sounds clear and equal bilaterally. No rales, rhonchi, or wheezes. No ecchymosis, subcutaneous emphysema, or tenderness. ABDOMEN: Abdomen soft without tenderness. No palpable masses or organomegaly. No peritoneal signs. No abdominal wall swelling or ecchymosis. EXTREMITIES: No extremity tenderness. Normal muscle tone and function. No thoracolumbar tenderness. NEUROLOGIC: Sensation is grossly intact. Cranial nerve exam reveals face is symmetrical, tongue is midline, speech is clear. SKIN: No abrasions or ecchymosis is noted. No induration or masses noted. PSYCHIATRIC: Alert and oriented. Appropriate behavior and judgment. Limitations: no limitations Course Vital Signs 08/08/17 08/08/17 10:20 14:30 Pulse Rate 65 60 Respiratory 22 16 Rate Blood Pressure 144/70 131/82 O2 Sat by Pulse 100 100 Oximetry Medical Decision Making - Medical Decision Making The patient was seen and examined. All diagnostics are reviewed. He does receive some Zofran intravenously for the nausea. He also receives some Pepcid. He receives ample fluid hydration. He is still vomiting after 8 mg of Zofran and some Phenergan is ordered. The blood sugar is elevated at 230. Is mild leukocytosis. The urine does show some ketones but the acetone in the serum is negative. The acute abdominal series does not show any acute process. Overall is felt as though he likely does have gastroenteritis. He also is a type I diabetic. There is no evidence of diabetic ketoacidosis at this time. It is felt that he would require admission to hospital for continued symptomatic therapy, IV hydration, and to prevent him going into diabetic ketoacidosis. The case will be discussed with internal medicine shortly. - Lab Data Result diagrams: 08/08/17 10:58 08/08/17 10:58 Lab Results 08/08/17 08/08/17 08/08/17 Range/Units 10:58 10:58 10:58 WBC 11.2 H (3.8-10.6) k/uL RBC 4.87 (4.30-5.90) m/uL Hgb 12.8 L D (13.0-17.5) gm/dL Hct 40.1 (39.0-53.0) % MCV 82.4 (80.0-100.0) fL MCH 26.3 (25.0-35.0) pg MCHC 32.0 (31.0-37.0) g/dL RDW 13.3 (11.5-15.5) % Plt Count 364 (150-450) k/uL Neutrophils % 86 % Lymphocytes % 10 % Monocytes % 4 % Eosinophils % 0 % Basophils % 0 % Neutrophils # 9.6 H (1.3-7.7) k/uL Lymphocytes # 1.1 (1.0-4.8) k/uL Monocytes # 0.4 (0-1.0) k/uL Eosinophils # 0.0 (0-0.7) k/uL Basophils # 0.0 (0-0.2) k/uL PT (9.0-12.0) sec INR (<1.2) APTT (22.0-30.0) sec Sodium 142 (137-145) mmol/L Potassium 3.9 (3.5-5.1) mmol/L Chloride 102 (98-107) mmol/L Carbon Dioxide 28 (22-30) mmol/L Anion Gap 12 mmol/L BUN 13 (9-20) mg/dL Creatinine 0.80 (0.66-1.25) mg/dL Est GFR (CKD-EPI)AfAm >90 (>60 ml/min/1.73 sqM) Est GFR (CKD-EPI)NonAf >90 (>60 ml/min/1.73 sqM) Glucose 230 H (74-99) mg/dL Plasma Lactic Acid Domingo 1.2 (0.7-2.0) mmol/L Calcium 10.2 (8.4-10.2) mg/dL Total Bilirubin 0.4 (0.2-1.3) mg/dL AST 22 (17-59) U/L ALT 35 (21-72) U/L Alkaline Phosphatase 90 (38-126) U/L Total Protein 7.2 (6.3-8.2) g/dL Albumin 4.5 (3.5-5.0) g/dL Amylase 89 (30-110) U/L Lipase 85 (23-300) U/L Urine Color Urine Appearance (Clear) Urine pH (5.0-8.0) Ur Specific [place] (1.001-1.035) Urine Protein (Negative) Urine Glucose (UA) (Negative) Urine Ketones (Negative) Urine Blood (Negative) Urine Nitrite (Negative) Urine Bilirubin (Negative) Urine Urobilinogen (<2.0) mg/dL Ur Leukocyte Esterase (Negative) Urine RBC (0-5) /hpf Urine WBC (0-5) /hpf Amorphous Sediment (None) /hpf Urine Mucus (None) /hpf Acetone, Qual Negative (Negative) 08/08/17 08/08/17 Range/Units 10:58 14:30 WBC (3.8-10.6) k/uL RBC (4.30-5.90) m/uL Hgb (13.0-17.5) gm/dL Hct (39.0-53.0) % MCV (80.0-100.0) fL MCH (25.0-35.0) pg MCHC (31.0-37.0) g/dL RDW (11.5-15.5) % Plt Count (150-450) k/uL Neutrophils % % Lymphocytes % % Monocytes % % Eosinophils % % Basophils % % Neutrophils # (1.3-7.7) k/uL Lymphocytes # (1.0-4.8) k/uL Monocytes # (0-1.0) k/uL Eosinophils # (0-0.7) k/uL Basophils # (0-0.2) k/uL PT 10.5 (9.0-12.0) sec INR 1.1 (<1.2) APTT 22.9 (22.0-30.0) sec Sodium (137-145) mmol/L Potassium (3.5-5.1) mmol/L Chloride (98-107) mmol/L Carbon Dioxide (22-30) mmol/L Anion Gap mmol/L BUN (9-20) mg/dL Creatinine (0.66-1.25) mg/dL Est GFR (CKD-EPI)AfAm (>60 ml/min/1.73 sqM) Est GFR (CKD-EPI)NonAf (>60 ml/min/1.73 sqM) Glucose (74-99) mg/dL Plasma Lactic Acid Domingo (0.7-2.0) mmol/L Calcium (8.4-10.2) mg/dL Total Bilirubin (0.2-1.3) mg/dL AST (17-59) U/L ALT (21-72) U/L Alkaline Phosphatase (38-126) U/L Total Protein (6.3-8.2) g/dL Albumin (3.5-5.0) g/dL Amylase (30-110) U/L Lipase (23-300) U/L Urine Color Yellow Urine Appearance Clear (Clear) Urine pH 6.0 (5.0-8.0) Ur Specific [place] 1.032 (1.001-1.035) Urine Protein 1+ H (Negative) Urine Glucose (UA) 4+ H (Negative) Urine Ketones 2+ H (Negative) Urine Blood Negative (Negative) Urine Nitrite Negative (Negative) Urine Bilirubin Negative (Negative) Urine Urobilinogen <2.0 (<2.0) mg/dL Ur Leukocyte Esterase Negative (Negative) Urine RBC 6 H (0-5) /hpf Urine WBC 4 (0-5) /hpf Amorphous Sediment Rare H (None) /hpf Urine Mucus Moderate H (None) /hpf Acetone, Qual (Negative) Disposition Clinical Impression: Insulin dependent diabetes mellitus, Gastroenteritis, Diarrhea, Intractable nausea and vomiting Disposition: [facility] Condition: Fair Time of Disposition: 15:33 Decision Date: 08/08/17 Decision Time: 15:33
[2017-08-08 12:23] LABS: ALT 35 U/L (21-72); AST 22 U/L (17-59); Albumin 4.5 g/dL (3.5-5.0); Alkaline Phosphatase 90 U/L (38-126); Amylase 89 U/L (30-110); Anion Gap 12 mmol/L; Blood Urea Nitrogen 13 mg/dL (9-20); Calcium 10.2 mg/dL (8.4-10.2); Carbon Dioxide 28 mmol/L (22-30); Chloride 102 mmol/L (98-107); Glucose 230 mg/dL (74-99); Lipase 85 U/L (23-300); Potassium 3.9 mmol/L (3.5-5.1); Sodium 142 mmol/L (137-145); Total Bilirubin 0.4 mg/dL (0.2-1.3); Total Protein 7.2 g/dL (6.3-8.2)
[2017-08-08 12:33] LABS: Basophils % (A) 0 %; Eosinophils % (A) 0 %; HCT 40.1 % (39.0-53.0); Lymphocytes # (A) 1.1 k/uL (1.0-4.8); Lymphocytes % (A) 10 %; MCH 26.3 pg (25.0-35.0); MCV 82.4 fL (80.0-100.0); Mean Platelet Volume 6.9; Monocytes # (A) 0.4 k/uL (0-1.0); Monocytes % (A) 4 %; Neutrophils # (A) 9.6 k/uL (1.3-7.7); Neutrophils % (A) 86 %; Platelet Count 364 k/uL (150-450); RBC 4.87 m/uL (4.30-5.90); RDW 13.3 % (11.5-15.5); WBC 11.2 k/uL (3.8-10.6)
[2017-08-08 12:35] LABS: HGB 12.8 gm/dL (13.0-17.5)
[2017-08-08 13:09] LABS: INR 1.1 (<1.2)
[2017-08-08 13:11] LABS: Prothrombin Time 10.5 sec (9.0-12.0)
[2017-08-08 13:12] LABS: Partial Thromboplastin Time 22.9 sec (22.0-30.0)
--- NOTE | 2017-08-08 13:40 | XR ---
EXAMINATION TYPE: XR abdomen acute w cxr DATE OF EXAM: 08/08/2017 COMPARISON: NONE HISTORY: Chills and vomiting TECHNIQUE: Abdomen is examined in the upright and supine views. This is supplemented with a frontal c hest. FINDINGS: Heart size is normal. Pulmonary vasculature is normal. The lungs are clear. No free air is under the diaphragm. Psoas margins are normal. Organomegaly is not present. No suspici ous air-fluid levels or differential air-fluid levels are present. Osseous structures are unremarkabl e. IMPRESSION: 1. Normal acute abdominal series.
[2017-08-08] MEDS ORDERED: PROMETHAZINE INJ 25 MG in SODIUM CHLORIDE 0.9% 50 ML IVPB STA (14:55)
[2017-08-08] MEDS ORDERED: KETOROLAC 30 MG/ML 1 ML VIAL IVP STA (14:56)
[2017-08-08 15:00] LABS: Amorphous Sediment,Urine Rare /hpf; Appearance,Urine Clear (Clear); Bilirubin,Urine Negative (Negative); Blood,Urine Negative (Negative); Color,Urine Yellow; Glucose,Urine (UA) 4+ (Negative); Leukocyte Esterase,Urine Negative (Negative); Mucus,Urine Moderate /hpf; Nitrite,Urine Negative (Negative); Protein,Urine 1+ (Negative); RBC,Urine 6 /hpf (0-5); Specific Gravity,Urine 1.032 (1.001-1.035); Urobilinogen,Urine <2.0 mg/dL (<2.0); WBC,Urine 4 /hpf (0-5)
[2017-08-08 15:01] LABS: Ketones,Urine 2+ (Negative)
[2017-08-08] MEDS ORDERED: ACETAMINOPHEN TAB 325 MG TAB PO PRN (15:40)
[2017-08-08] MEDS ORDERED: NALOXONE 0.4 MG/ML 1 ML VIAL IV PRN (15:40)
[2017-08-08] MEDS: ONDANSETRON 4 MG/2 ML VIAL IVP SCH ×2 (17:12→23:52)
[2017-08-08 17:15] LABS: Glucose,Whole Blood 193 mg/dL (75-99)
[2017-08-08 17:21] VITALS: BMI 22.8
[2017-08-08] MEDS: INSULIN ASPART 100 UNIT/ML 1 ML 10 ML VIAL SQ SCH ×2 (17:54→22:01)
[2017-08-08 21:53] LABS: Glucose,Whole Blood 196 mg/dL (75-99)
[2017-08-08] MEDS: METOCLOPRAMIDE 5 MG/ML 2 ML VIAL IVP PRN (22:00)
[2017-08-08] MEDS: INSULIN DETEMIR 100 UNIT/ML 10 ML VIAL SQ SCH (22:01)
--- NOTE | 2017-08-08 23:54 | P.HPIM ---
History of Present Illness H&P Date: 08/08/17 Chief Complaint: Nausea vomiting and diarrhea Patient is a 32-year-old male with a known history of diabetes type 1, asthma and diabetic peripheral neuropathy came to ER with a complaint of some nausea and vomiting and diarrhea. Onset occurred this morning. He states that he has vomited approximately 10 times. He has some chills but denies any known fever. He has had occasional cough. He denies any abdominal pain. He denies any other complaints or modifying factors. Abdominal series negative Blood sugar CBG 230 Acetone negative Review of Systems Constitutional: Patient denies any fever or chills . No generalized weakness or weight loss. Abdomen: Nausea vomiting and diarrhea. No abdominal pain no constipation Cardiovascular: Patient denies any chest pain or short of breath no palpitations. Respiratory: patient denied any cough is from production. No shortness of breath Neurologic: Patient denied any numbness or tingling headache. Musculoskeletal: Patient denies any complaints of joint swelling or deformity. Skin: Negative Psychiatric: Negative Endocrine: No heat or cold intolerance. No recent weight gain. Genitourinary: No dysuria or hematuria. All other 14 point ROS negative except the above Past Medical History Past Medical History: Asthma, Diabetes Mellitus Additional Past Medical History / Comment(s): IDDM type I, neuropathy bilateral feet, bronchitis History of Any Multi-Drug Resistant Organisms: None Reported Past Surgical History: No Surgical Hx Reported Additional Past Surgical History / Comment(s): Glass removed from head Past Anesthesia/Blood Transfusion Reactions: No Reported Reaction Past Psychological History: No Psychological Hx Reported Additional Psychological History / Comment(s): Pt resides alone. He is independent. He states he ran out of blood glucose monitoring strips and has not been able to check blood sugars lately. He would like a new machine/ supplies. Smoking Status: Never smoker Past Alcohol Use History: None Reported Past Drug Use History: Marijuana Additional Drug Use History / Comment(s): Pt states he normally smokes 5-6 joints a day but has not smoked any in 3 days. - Past Family History Father Family Medical History: Diabetes Mellitus Additional Family Medical History / Comment(s): Diabetes runs in father's side of family Mother Family Medical History: Hypertension Medications and Allergies Home Medications Medication Instructions Recorded Confirmed Type Insulin Aspart [NovoLOG 8 unit SQ AC-TID #1 vial 06/27/17 08/08/17 Rx (formulary)] Insulin Glargine,Hum.rec.anlog 24 unit SQ HS 08/08/17 08/08/17 History [Melbaagldeisi Galindo U-100] Allergies Allergy/AdvReac Type Severity Reaction Status Date / Time latex Allergy Rash/Hives Verified 08/08/17 12:51 Physical Exam Vitals: Vital Signs Temp Pulse Pulse Resp BP BP Pulse Ox 08/08/17 17:30 98.8 F 83 18 148/70 98 08/08/17 16:07 97.6 F 76 17 147/78 98 08/08/17 14:30 60 16 131/82 100 08/08/17 10:20 65 22 144/70 100 Intake and Output 08/08/17 08/08/17 08/08/17 06:59 14:59 22:59 Other: Voiding Method Toilet Weight 68.039 kg 68.039 kg Patient Weight 08/09/17 06:59 Weight 68.039 kg PHYSICAL EXAMINATION: Patient is lying in the bed comfortably, no acute distress, awake alert and oriented.. HEENT: Normocephalic. Neck is supple. Pupils reactive. Nostrils clear. Oral cavity is moist. Ears reveal no drainage. Neck reveals no JVD, carotid bruits, or thyromegaly. CHEST EXAMINATION: Trachea is central. Symmetrical expansion. Lung vazquez clear to auscultation and percussion. CARDIAC: Normal S1, S2 with no gallops. No murmurs ABDOMEN: Soft. Bowel sounds normal. No organomegaly. No abdominal bruits. Extremities: reveal no edema. No clubbing or cyanosis Neurologically awake, alert, oriented x3 with well-coordinated movements. No focal deficits noted Skin: No rash or skin lesions. Psychiatric: Coperative. Nonsuicidal Musculoskeletal: No joint swelling or deformity. Normal range of motion. Results CBC & Chem 7: 08/08/17 10:58 08/08/17 10:58 Labs: Abnormal Lab Results - Last 24 Hours (Table) 08/08/17 08/08/17 08/08/17 Range/Units 10:58 10:58 14:30 WBC 11.2 H (3.8-10.6) k/uL Hgb 12.8 L D (13.0-17.5) gm/dL Neutrophils # 9.6 H (1.3-7.7) k/uL Glucose 230 H (74-99) mg/dL POC Glucose (mg/dL) (75-99) mg/dL Urine Protein 1+ H (Negative) Urine Glucose (UA) 4+ H (Negative) Urine Ketones 2+ H (Negative) Urine RBC 6 H (0-5) /hpf Amorphous Sediment Rare H (None) /hpf Urine Mucus Moderate H (None) /hpf 08/08/17 Range/Units 17:13 WBC (3.8-10.6) k/uL Hgb (13.0-17.5) gm/dL Neutrophils # (1.3-7.7) k/uL Glucose (74-99) mg/dL POC Glucose (mg/dL) 193 H (75-99) mg/dL Urine Protein (Negative) Urine Glucose (UA) (Negative) Urine Ketones (Negative) Urine RBC (0-5) /hpf Amorphous Sediment (None) /hpf Urine Mucus (None) /hpf Thrombosis Risk Factor Assmnt - Choose All That Apply Any of the Below Risk Factors Present?: No Assessment and Plan Assessment: Nausea vomiting and diarrhea likely due to acute gastroenteritis Diabetes type 1 Diabetic neuropathy peripheral Asthma stable DVT prophylaxis Plan: Patient will be continued on IV hydration and supportive therapy. Zofran for nausea vomiting and current insulin dosing. Further recommendations based on the clinical course. Time with Patient: Greater than 30
[2017-08-09 01:38] LABS: Hepatitis A Ab, Total Non-Reactive (Non-Reactive); Hepatitis A Antibody IgM Non-Reactive (Non-Reactive)
[2017-08-09] MEDS: SODIUM CHLORIDE 0.9% 1,000 ML IV SCH (03:46)
[2017-08-09] MEDS: METOCLOPRAMIDE 5 MG/ML 2 ML VIAL IVP PRN ×3 (03:46→21:24)
[2017-08-09 07:27] LABS: Glucose,Whole Blood 163 mg/dL (75-99)
[2017-08-09] MEDS: ONDANSETRON 4 MG/2 ML VIAL IVP SCH ×3 (08:19→16:13)
[2017-08-09] MEDS: INSULIN ASPART 100 UNIT/ML 1 ML 10 ML VIAL SQ SCH ×5 (08:21→21:19)
[2017-08-09 09:45] LABS: Basophils % (A) 0 %; Eosinophils % (A) 0 %; HCT 40.3 % (39.0-53.0); HGB 13.1 gm/dL (13.0-17.5); Lymphocytes # (A) 1.6 k/uL (1.0-4.8); Lymphocytes % (A) 17 %; MCH 26.6 pg (25.0-35.0); MCHC 32.6 g/dL (31.0-37.0); MCV 81.5 fL (80.0-100.0); Mean Platelet Volume 6.2; Monocytes # (A) 0.7 k/uL (0-1.0); Monocytes % (A) 7 %; Neutrophils # (A) 7.3 k/uL (1.3-7.7); Neutrophils % (A) 74 %; Platelet Count 377 k/uL (150-450); RBC 4.95 m/uL (4.30-5.90); WBC 9.9 k/uL (3.8-10.6)
[2017-08-09 09:50] LABS: Anion Gap 12 mmol/L; Blood Urea Nitrogen 15 mg/dL (9-20); Calcium 9.8 mg/dL (8.4-10.2); Carbon Dioxide 27 mmol/L (22-30); Chloride 103 mmol/L (98-107); Glucose 173 mg/dL (74-99); Potassium 3.8 mmol/L (3.5-5.1); Sodium 142 mmol/L (137-145)
[2017-08-09] MEDS: ENOXAPARIN 40 MG/0.4 ML SYRINGE SQ SCH (10:42)
[2017-08-09 11:45] LABS: Glucose,Whole Blood 185 mg/dL (75-99)
[2017-08-09] MEDS: PANTOPRAZOLE 40 MG/10 ML VIAL IV SCH (13:29)
[2017-08-09 18:09] LABS: Glucose,Whole Blood 183 mg/dL (75-99)
[2017-08-09 20:30] LABS: Glucose,Whole Blood 148 mg/dL (75-99)
[2017-08-09] MEDS: INSULIN DETEMIR 100 UNIT/ML 10 ML VIAL SQ SCH (21:19)
--- NOTE | 2017-08-09 22:48 | P.PN ---
Subjective Progress Note Date: 08/09/17 Principal diagnosis: Acute gastroenteritis Patient is a 32-year-old male with a known history of diabetes type 1, asthma and diabetic peripheral neuropathy came to ER with a complaint of some nausea and vomiting and diarrhea. Onset occurred this morning. He states that he has vomited approximately 10 times. He has some chills but denies any known fever. He has had occasional cough. He denies any abdominal pain. He denies any other complaints or modifying factors. Abdominal series negative Blood sugar CBG 230 Acetone negative. Hepatitis C negative. influenza negative 08/09/2017 Patient is still having nausea and vomiting. Unable to tolerate oral diet. No fever no chills. Blood sugar is fairly controlled otherwise. No chest pain or shortness of breath. No other acute overnight issues. All other review of systems negative except the above Current medications reviewed Objective - Vital Signs Vital signs: Vital Signs Temp 98.0 F 08/09/17 22:03 Pulse 60 08/09/17 22:03 Resp 18 08/09/17 22:03 BP 154/91 08/09/17 22:03 Pulse Ox 99 08/09/17 22:03 Intake & Output 08/09/17 08/09/17 08/10/17 06:59 18:59 06:59 Intake Total 800 700 Output Total 600 Balance 200 700 Intake: Intake, IV Titration 800 700 Amount Sodium Chloride 0.9% 1, 800 700 000 ml @ 100 mls/hr IV . Q10H [facility] Rx#:[id number] Output: Emesis 600 Other: Voiding Method Toilet Toilet # Voids 2 - Exam PHYSICAL EXAMINATION: Patient is lying in the bed comfortably, no acute distress, awake alert and oriented.. HEENT: Normocephalic. Neck is supple. Pupils reactive. Nostrils clear. Oral cavity is moist. Ears reveal no drainage. Neck reveals no JVD, carotid bruits, or thyromegaly. CHEST EXAMINATION: Trachea is central. Symmetrical expansion. Lung vazquez clear to auscultation and percussion. CARDIAC: Normal S1, S2 with no gallops. No murmurs ABDOMEN: Soft. Bowel sounds normal. No organomegaly. No abdominal bruits. Extremities: reveal no edema. No clubbing or cyanosis Neurologically awake, alert, oriented x3 with well-coordinated movements. No focal deficits noted Skin: No rash or skin lesions. Psychiatric: Coperative. Nonsuicidal Musculoskeletal: No joint swelling or deformity. Normal range of motion. - Labs CBC & Chem 7: 08/09/17 08:54 08/09/17 08:54 Labs: Abnormal Lab Results - Last 24 Hours (Table) 08/09/17 08/09/17 08/09/17 Range/Units 07:25 08:54 11:38 Glucose 173 H (74-99) mg/dL POC Glucose (mg/dL) 163 H 185 H (75-99) mg/dL 08/09/17 08/09/17 Range/Units 17:43 20:24 Glucose (74-99) mg/dL POC Glucose (mg/dL) 183 H 148 H (75-99) mg/dL Assessment and Plan Assessment: Nausea vomiting and diarrhea likely due to acute gastroenteritis Diabetes type 1 Diabetic neuropathy peripheral Asthma stable DVT prophylaxis Plan: Patient will be continued on IV hydration and supportive therapy. Zofran for nausea vomiting and current insulin dosing. Further recommendations based on the clinical course. Time with Patient: Greater than 30
[2017-08-10] MEDS: ONDANSETRON 4 MG/2 ML VIAL IVP SCH ×4 (02:42→17:03)
[2017-08-10] MEDS: SODIUM CHLORIDE 0.9% 1,000 ML IV SCH ×4 (02:56→17:04)
[2017-08-10] MEDS: METOCLOPRAMIDE 5 MG/ML 2 ML VIAL IVP PRN ×4 (04:30→22:37)
[2017-08-10 06:58] LABS: Glucose,Whole Blood 171 mg/dL (75-99)
[2017-08-10] MEDS: INSULIN ASPART 100 UNIT/ML 1 ML 10 ML VIAL SQ SCH ×4 (07:58→22:25)
[2017-08-10] MEDS: PANTOPRAZOLE 40 MG/10 ML VIAL IV SCH (08:00)
[2017-08-10] MEDS: ENOXAPARIN 40 MG/0.4 ML SYRINGE SQ SCH (08:00)
[2017-08-10 11:32] LABS: Glucose,Whole Blood 179 mg/dL (75-99)
[2017-08-10 16:56] LABS: Glucose,Whole Blood 129 mg/dL (75-99)
[2017-08-10 21:44] LABS: Glucose,Whole Blood 122 mg/dL (75-99)
[2017-08-10] MEDS: INSULIN DETEMIR 100 UNIT/ML 10 ML VIAL SQ SCH (22:25)
[2017-08-11] MEDS: ONDANSETRON 4 MG/2 ML VIAL IVP SCH ×2 (01:31→08:07)
[2017-08-11] MEDS: SODIUM CHLORIDE 0.9% 1,000 ML IV SCH (01:31)
[2017-08-11] MEDS: METOCLOPRAMIDE 5 MG/ML 2 ML VIAL IVP PRN (05:06)
[2017-08-11 07:16] LABS: Glucose,Whole Blood 131 mg/dL (75-99)
[2017-08-11] MEDS ORDERED: SCOPOLAMINE 1.5MG/72HR PATCH TRANSDERM STA (07:54)
--- NOTE | 2017-08-11 07:54 | P.CONS ---
History of Present Illness - Reason for Consult Consult date: 08/11/17 Nausea vomiting diarrhea Requesting physician: Jennifer Villanueva - History of Present Illness 42-year-old gentleman history of insulin-dependent diabetes mellitus admitted with intractable nausea vomiting upper bilateral abdominal pain diarrhea. Denies hematemesis hematochezia melena. Serum acetone negative. Afebrile. Presently his nausea vomiting diarrhea has improved. WBC 9.9-11.2. Hemoglobin 12.8-13.1. Sodium 142. Potassium 3.9. BUN 13. Creatinine 0.8. Serum glucose 173-230. LFTs lipase within normal limits. C. diff negative. Hepatitis a and influenza nonreactive. Acute abdominal series normal. No history of EGD. Patient states he only gets these symptoms when he is hospitalized. No changes in diet or weight loss. No recent travels. No sick contacts. Review of Systems Constitutional: Denies fever, chills, sweats, weight gain, or loss. HEENT: Negative for migraines, blurred vision or loss, earaches, drainage, tinnitus, oral mucosal lesions, dysphagia, or odynophagia. Cardiac: Negative for chest pain, arrhythmias, or palpitation. Respiratory: Asthma. Negative for shortness of breath, hemoptysis, cough, or sputum production. Gastrointestinal: See HPI for pertinent findings. Genitourinary: Negative for hematuria, urgency, frequency, polyuria, dysuria, or penile discharge. Musculoskeletal: Negative for muscle aches, swelling, arthritis, and arthralgias. Neurologic: Negative for stroke or TIA. Endocrine: Diabetes mellitus. Negative for thyroid problems. Skin: Negative for rash or itching. Psychiatric: Negative history for depression and anxiety Past Medical History Past Medical History: Asthma, Diabetes Mellitus Additional Past Medical History / Comment(s): IDDM type I, neuropathy bilateral feet, bronchitis History of Any Multi-Drug Resistant Organisms: None Reported Past Surgical History: No Surgical Hx Reported Additional Past Surgical History / Comment(s): Glass removed from head Past Anesthesia/Blood Transfusion Reactions: No Reported Reaction Past Psychological History: No Psychological Hx Reported Additional Psychological History / Comment(s): Pt resides alone. He is independent. He states he ran out of blood glucose monitoring strips and has not been able to check blood sugars lately. He would like a new machine/ supplies. Smoking Status: Never smoker Past Alcohol Use History: None Reported Past Drug Use History: Marijuana Additional Drug Use History / Comment(s): Pt states he normally smokes 5-6 joints a day but has not smoked any in 3 days. - Past Family History Father Family Medical History: Diabetes Mellitus Additional Family Medical History / Comment(s): Diabetes runs in father's side of family Mother Family Medical History: Hypertension Medications and Allergies Home Medications Medication Instructions Recorded Confirmed Type Insulin Aspart [NovoLOG 8 unit SQ AC-TID #1 vial 06/27/17 08/08/17 Rx (formulary)] Insulin Glargine,Hum.rec.anlog 24 unit SQ HS 08/08/17 08/08/17 History [Basaglar Kwikpen U-100] Allergies Allergy/AdvReac Type Severity Reaction Status Date / Time latex Allergy Rash/Hives Verified 08/08/17 12:51 Physical Exam Vitals: Vital Signs Temp Pulse Resp BP Pulse Ox 08/10/17 23:00 99.2 F 70 16 131/86 100 08/10/17 15:14 59 L 18 08/10/17 14:52 98.5 F 59 L 18 140/81 100 Intake and Output 08/10/17 08/11/17 08/11/17 22:59 06:59 14:59 Intake Total 1100 1400 Output Total 400 Balance 700 1400 Intake: Intake, IV Titration 800 800 Amount Sodium Chloride 0.9% 1, 800 800 000 ml @ 100 mls/hr IV . Q10H [facility] Rx#:[id number] Oral 300 600 Output: Emesis 400 Other: Voiding Method Toilet Toilet # Voids 3 Weight 68.039 kg General appearance: The patient is alert, oriented, in no acute distress. HET: Head is normocephalic and atraumatic. Pupils are equal and reactive. Oropharynx is clear without lesions. Neck: Supple without lymphadenopathy. Trachea midline. Heart: S1 S2. Regular rate and rhythm. Lungs: No crackles or wheezes are heard. Abdomen: Soft, nontender, nondistended with bowel sounds. No peritoneal signs. No palpable organomegaly or masses. Extremities: Normal skin color and turgor. No cyanosis, rash, ulceration, clubbing, or edema. Radial and pedal pulses are 2/4 bilaterally. Neurological: No focal deficits. Strength and sensation are grossly intact. Results CBC & Chem 7: 08/09/17 08:54 08/09/17 08:54 Labs: Abnormal Lab Results - Last 24 Hours (Table) 08/10/17 08/10/17 08/10/17 Range/Units 11:30 16:46 21:23 POC Glucose (mg/dL) 179 H 129 H 122 H (75-99) mg/dL 08/11/17 Range/Units 07:14 POC Glucose (mg/dL) 131 H (75-99) mg/dL Abdominal x-ray: report reviewed (Dr. Johnson) Assessment and Plan (1) Abdominal pain Narrative/Plan: 32-year-old male admitted with intractable nausea vomiting upper abdominal pain with history of insulin-dependent diabetes mellitus possible gastritis possible component of gastroparesis with improvement of symptoms. Current Visit: Yes Status: Acute Code(s): R10.9 - UNSPECIFIED ABDOMINAL PAIN SNOMED Code(s): 10078088 Plan: 1. Symptoms have improved. Scopolamine patch ordered. Will advance diet patient's requesting advancement. Discharge per medicine. Follow-up in office after discharge for reevaluation. Inpatient endoscopic exams not planned at this time. Glycemic control. Supportive measures. Thank you for this kind referral and the opportunity to participate in the care of your patient. This consultation was discussed with Dr. Johnson. The impression and plan of care have been directed as dictated.
[2017-08-11 07:55] VITALS: BP 124/70; PULSE 64; RESP 18; TEMP 98.6
[2017-08-11] MEDS: ENOXAPARIN 40 MG/0.4 ML SYRINGE SQ SCH (08:06)
[2017-08-11] MEDS: PANTOPRAZOLE 40 MG/10 ML VIAL IV SCH (08:07)
[2017-08-11] MEDS: INSULIN ASPART 100 UNIT/ML 1 ML 10 ML VIAL SQ SCH ×2 (08:07→13:00)
--- NOTE | 2017-08-11 09:35 | P.CONS ---
Past Medical History Past Medical History: Asthma, Diabetes Mellitus Additional Past Medical History / Comment(s): IDDM type I, neuropathy bilateral feet, bronchitis History of Any Multi-Drug Resistant Organisms: None Reported Past Surgical History: No Surgical Hx Reported Additional Past Surgical History / Comment(s): Glass removed from head Past Anesthesia/Blood Transfusion Reactions: No Reported Reaction Past Psychological History: No Psychological Hx Reported Additional Psychological History / Comment(s): Pt resides alone. He is independent. He states he ran out of blood glucose monitoring strips and has not been able to check blood sugars lately. He would like a new machine/ supplies. Smoking Status: Never smoker Past Alcohol Use History: None Reported Past Drug Use History: Marijuana Additional Drug Use History / Comment(s): Pt states he normally smokes 5-6 joints a day but has not smoked any in 3 days. - Past Family History Father Family Medical History: Diabetes Mellitus Additional Family Medical History / Comment(s): Diabetes runs in father's side of family Mother Family Medical History: Hypertension Medications and Allergies Home Medications Medication Instructions Recorded Confirmed Type Insulin Aspart [NovoLOG 8 unit SQ AC-TID #1 vial 06/27/17 08/08/17 Rx (formulary)] Insulin Glargine,Hum.rec.anlog 24 unit SQ HS 08/08/17 08/08/17 History [Melbaagldesii Galindo U-100] Allergies Allergy/AdvReac Type Severity Reaction Status Date / Time latex Allergy Rash/Hives Verified 08/08/17 12:51 Physical Exam Vitals: Vital Signs Temp Pulse Resp BP Pulse Ox 08/11/17 07:00 98.6 F 64 18 124/70 97 08/10/17 23:00 99.2 F 70 16 131/86 100 08/10/17 15:14 59 L 18 08/10/17 14:52 98.5 F 59 L 18 140/81 100 Intake and Output 08/10/17 08/11/17 08/11/17 22:59 06:59 14:59 Intake Total 1100 1400 Output Total 400 Balance 700 1400 Intake: Intake, IV Titration 800 800 Amount Sodium Chloride 0.9% 1, 800 800 000 ml @ 100 mls/hr IV . Q10H ROWAN Rx#:[id number] Oral 300 600 Output: Emesis 400 Other: Voiding Method Toilet Toilet # Voids 3 Weight 68.039 kg Results CBC & Chem 7: 08/09/17 08:54 08/09/17 08:54 Labs: Abnormal Lab Results - Last 24 Hours (Table) 08/10/17 08/10/17 08/10/17 Range/Units 11:30 16:46 21:23 POC Glucose (mg/dL) 179 H 129 H 122 H (75-99) mg/dL 08/11/17 Range/Units 07:14 POC Glucose (mg/dL) 131 H (75-99) mg/dL
[2017-08-11 11:46] LABS: Glucose,Whole Blood 143 mg/dL (75-99)
[2017-08-11 12:45] LABS: Hemoglobin A1C 7.9 % (4.0-6.0)
[2017-08-12] MEDS ORDERED: PANTOPRAZOLE 40 MG TABLET PO SCH (07:30)
--- NOTE | 2017-08-12 09:17 | DS ---
DISCHARGE SUMMARY FINAL DIAGNOSES: 1. Nausea, vomiting and diarrhea, possible acute gastroenteritis. 2. Diabetes mellitus type 1. 3. Diabetic polyneuropathy. 4. Asthma, stable. 5. DVT prophylaxis. DISCHARGE DISPOSITION: The patient is being discharged in stable condition with guarded prognosis. HISTORY OF PRESENT ILLNESS: This 32-year-old gentleman the past medical history of multiple medical problems was admitted with nausea, vomiting and diarrhea possibly acute gastroenteritis was considered and patient treated symptomatically, improved significantly. Blood sugars monitored. On exam, vitals are stable. Cardiovascular: S1, S2 Abdomen: Soft. Nervous System: No focal deficits. Patient improved significantly. DISCHARGE ADVICE AND MEDICATIONS: 1. Diet is soft. 2. Follow up with Dr. Johnson. 3. Follow with Dr. Rodarte in 2-3 days. MEDICATIONS: 1. NovoLog 80 units subcu a.c. t.i.d. 2. Lantus 25 units subcu q.h.s. 3. Zofran 4 mg p.o. p.r.n. 4. Protonix 40 mg p.o. b.i.d. 5. Scopolamine patch 1.5 mg patch behind the ear p.r.n. Once again, the patient is discharged in stable condition with guarded prognosis. MMODL / IJN: [id number] /
--- NOTE | 2017-08-14 21:28 | P.PN ---
Subjective Progress Note Date: 08/10/17 Principal diagnosis: Acute gastroenteritis Patient is a 32-year-old male with a known history of diabetes type 1, asthma and diabetic peripheral neuropathy came to ER with a complaint of some nausea and vomiting and diarrhea. Onset occurred this morning. He states that he has vomited approximately 10 times. He has some chills but denies any known fever. He has had occasional cough. He denies any abdominal pain. He denies any other complaints or modifying factors. Abdominal series negative Blood sugar CBG 230 Acetone negative. Hepatitis C negative. influenza negative 08/09/2017 Patient is still having nausea and vomiting. Unable to tolerate oral diet. No fever no chills. Blood sugar is fairly controlled otherwise. No chest pain or shortness of breath. No other acute overnight issues. 08/10/2017 Patient is still having nausea. Otherwise no episodes of vomiting. Slightly tolerating oral diet but still feels very nauseated. GI will be consulted and will be continued on symptomatic management at this time. Otherwise no fever no chills. No diarrhea. All other review of systems negative except the above Current medications reviewed Objective - Vital Signs Vital signs: Vital Signs Temp 98.5 F 08/10/17 14:52 Pulse 59 L 08/10/17 14:52 Resp 18 08/10/17 14:52 BP 140/81 08/10/17 14:52 Pulse Ox 100 08/10/17 14:52 Intake & Output 08/09/17 08/10/17 08/10/17 18:59 06:59 18:59 Intake Total 700 1600 1250 Output Total 200 Balance 700 1400 1250 Intake: Intake, IV Titration 700 1600 1200 Amount Sodium Chloride 0.9% 1, 700 1600 1200 000 ml @ 100 mls/hr IV . Q10H ROWAN Rx#:[id number] Oral 50 Output: Emesis 200 Other: Voiding Method Toilet Toilet Toilet # Voids 3 - Exam PHYSICAL EXAMINATION: Patient is lying in the bed comfortably, no acute distress, awake alert and oriented.. HEENT: Normocephalic. Neck is supple. Pupils reactive. Nostrils clear. Oral cavity is moist. Ears reveal no drainage. Neck reveals no JVD, carotid bruits, or thyromegaly. CHEST EXAMINATION: Trachea is central. Symmetrical expansion. Lung vazquez clear to auscultation and percussion. CARDIAC: Normal S1, S2 with no gallops. No murmurs ABDOMEN: Soft. Bowel sounds normal. No organomegaly. No abdominal bruits. Extremities: reveal no edema. No clubbing or cyanosis Neurologically awake, alert, oriented x3 with well-coordinated movements. No focal deficits noted Skin: No rash or skin lesions. Psychiatric: Coperative. Nonsuicidal Musculoskeletal: No joint swelling or deformity. Normal range of motion. - Labs CBC & Chem 7: 08/09/17 08:54 08/09/17 08:54 Labs: Abnormal Lab Results - Last 24 Hours (Table) 08/09/17 08/09/17 08/10/17 Range/Units 17:43 20:24 06:57 POC Glucose (mg/dL) 183 H 148 H 171 H (75-99) mg/dL 08/10/17 Range/Units 11:30 POC Glucose (mg/dL) 179 H (75-99) mg/dL Assessment and Plan Assessment: Nausea vomiting and diarrhea likely due to acute gastroenteritis Diabetes type 1 Diabetic neuropathy peripheral Asthma stable DVT prophylaxis Plan: Patient will be continued on IV hydration and supportive therapy. Zofran for nausea vomiting and current insulin dosing. Further recommendations based on the clinical course. Time with Patient: Greater than 30
== END 2017-08-11 14:49 | disposition home or self-care (01) ==
LOC: EC 10:05 → 5MS5E 15:40
PROVIDERS: ADMIT Internal Medicine; ATTEND Internal Medicine
DX: R11.2 Nausea with vomiting, unspecified (principal); R19.7 Diarrhea, unspecified; R10.10 Upper abdominal pain, unspecified; R05 Cough; R68.83 Chills (without fever); R61 Generalized hyperhidrosis; D72.829 Elevated white blood cell count, unspecified; E10.42 Type 1 diabetes mellitus with diabetic polyneuropathy; J45.909 Unspecified asthma, uncomplicated; Z91.040 Latex allergy status; Z79.4 Long term (current) use of insulin; Z87.09 Personal history of other diseases of the respiratory system; Z82.49 Family history of ischemic heart disease and other diseases of the circulatory system
CPT/HCPCS: 36415; 74022; 80048; 80053; 81001; 82009; 82150; 83036; 83605; 83690; 85025; 85610; 85730; 86708; 86709; 87324; 87502; 87798; 96361; 96372; 96374; 96375; 96376; 99285

== ENCOUNTER 2017-08-12 09:54 | Emergency (ER) | payer OTHER ==
[2017-08-12 10:00] VITALS: RESP 18
[2017-08-12 10:04] LABS: Glucose,Whole Blood 151 mg/dL (75-99)
[2017-08-12] MEDS ORDERED: SODIUM CHLORIDE 0.9% 1,000 ML IV STA (10:39)
[2017-08-12] MEDS ORDERED: PROMETHAZINE INJ 25 MG in SODIUM CHLORIDE 0.9% 50 ML IVPB STA (10:39)
[2017-08-12] MEDS ORDERED: FAMOTIDINE 20 MG/2 ML VIAL IV STA (10:40)
--- NOTE | 2017-08-12 10:44 | ED ---
General Adult HPI - General Chief complaint: Nausea/Vomiting/Diarrhea Stated complaint: VOMITING Time Seen by Provider: 08/12/17 10:35 Source: patient, RN notes reviewed, old records reviewed Mode of arrival: ambulatory Limitations: no limitations - History of Present Illness Initial comments: 32-year-old male presenting to the emergency room today with a chief complaint of symptoms of nausea vomiting. Patient does admit that symptoms started 5 days ago. He does not that he was seen here in the emergency room admitted to the hospital released yesterday. Patient states she's had similar symptoms in the past. 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 Patient denies any abdominal pain. Denies any signs of blood in the emesis. Denies any other complaints or symptoms. Patient denies any recent fever, chills, shortness of breath, chest pain, back pain, abdominal pain, numbness or tingling, dysuria or hematuria, constipation or diarrhea, headaches or visual changes, or any other complaints. - Related Data Home Medications Medication Instructions Recorded Confirmed Insulin Glargine,Hum.rec.anlog 24 unit SQ HS 08/08/17 08/08/17 [Basaglar Kwikpen U-100] Previous Rx's Medication Instructions Recorded Insulin Aspart [NovoLOG 8 unit SQ AC-TID #1 vial 06/27/17 (formulary)] Ondansetron HCl [Zofran] 4 mg PO Q8H PRN #15 tablet 08/11/17 Pantoprazole [Protonix] 40 mg PO BID #60 tablet. 08/11/17 Scopolamine 1.5MG/72Hr Patch 1 patch TRANSDERM Q72H #3 patch 08/11/17 [TransDerm Scop] Metoclopramide HCl [Reglan] 10 mg PO Q6HR PRN #5 day 08/12/17 Allergies Allergy/AdvReac Type Severity Reaction Status Date / Time latex Allergy Rash/Hives Verified 08/12/17 09:58 Review of Systems ROS Statement: Those systems with pertinent positive or pertinent negative responses have been documented in the HPI. ROS Other: All systems not noted in ROS Statement are negative. Past Medical History Past Medical History: Asthma, Diabetes Mellitus Additional Past Medical History / Comment(s): IDDM type I, neuropathy bilateral feet, bronchitis History of Any Multi-Drug Resistant Organisms: None Reported Past Surgical History: No Surgical Hx Reported Additional Past Surgical History / Comment(s): Glass removed from head Past Anesthesia/Blood Transfusion Reactions: No Reported Reaction Past Psychological History: No Psychological Hx Reported Smoking Status: Never smoker Past Alcohol Use History: None Reported Past Drug Use History: Marijuana - Past Family History Father Family Medical History: Diabetes Mellitus Additional Family Medical History / Comment(s): Diabetes runs in father's side of family Mother Family Medical History: Hypertension General Exam - General Exam Comments Initial Comments: General: The patient is awake and alert, in no distress, and does not appear acutely ill. Eye: Pupils are equal, round and reactive to light, extra-ocular movements are intact. No nystagmus. There is normal conjunctiva bilaterally. No signs of icterus. Ears, nose, mouth and throat: There are moist mucous membranes and no oral lesions. Neck: The neck is supple, there is no tenderness or JVD. Cardiovascular: There is a regular rate and rhythm. No murmur, rub or gallop is appreciated. Respiratory: Lungs are clear to auscultation, respirations are non-labored, breath sounds are equal. No wheezes, stridor, rales, or rhonchi. Gastrointestinal: Soft, non-distended, non-tender abdomen without masses or organomegaly noted. There is no rebound or guarding present. No CVA tenderness. Musculoskeletal: Normal ROM, no tenderness. Strength 5/5. Sensation intact. Pulses equal bilaterally 2+. Neurological: A&O x 3. CN II-XII intact, There are no obvious motor or sensory deficits. Coordination appears grossly intact. Speech is normal. Skin: Skin is warm and dry and no rashes or lesions are noted. Psychiatric: Cooperative, appropriate mood & affect, normal judgment. Limitations: no limitations Course Vital Signs 08/12/17 09:58 Temperature 97.1 F L Pulse Rate 64 Respiratory 18 Rate Blood Pressure 148/95 O2 Sat by Pulse 99 Oximetry Medical Decision Making - Medical Decision Making The patient's labs been reviewed. Does show potassium 3.1. Patient does admit that his nausea vomiting was recently released from the hospital after admission. Patient acetone negative. Remaining labs are stable. Patient feeling better after medication here in emergency room. Has used Reglan in the past. Was discharged home yesterday with Zofran. Will be given a prescription of Reglan to use for his nausea. Advised follow-up the family doctor the next 2 days or returning if symptoms increase or worsen. - Lab Data Result diagrams: 08/12/17 10:25 08/12/17 10:25 Lab Results 08/12/17 08/12/17 08/12/17 Range/Units 10:02 10:25 10:25 WBC 8.2 (3.8-10.6) k/uL RBC 5.33 (4.30-5.90) m/uL Hgb 13.9 (13.0-17.5) gm/dL Hct 43.3 (39.0-53.0) % MCV 81.2 (80.0-100.0) fL MCH 26.0 (25.0-35.0) pg MCHC 32.1 (31.0-37.0) g/dL RDW 12.9 (11.5-15.5) % Plt Count 330 (150-450) k/uL Neutrophils % 59 % Lymphocytes % 29 % Monocytes % 9 % Eosinophils % 1 % Basophils % 1 % Neutrophils # 4.9 (1.3-7.7) k/uL Lymphocytes # 2.4 (1.0-4.8) k/uL Monocytes # 0.7 (0-1.0) k/uL Eosinophils # 0.1 (0-0.7) k/uL Basophils # 0.0 (0-0.2) k/uL Sodium 145 (137-145) mmol/L Potassium 3.1 L (3.5-5.1) mmol/L Chloride 99 (98-107) mmol/L Carbon Dioxide 31 H (22-30) mmol/L Anion Gap 15 mmol/L BUN 13 (9-20) mg/dL Creatinine 0.87 (0.66-1.25) mg/dL Est GFR (CKD-EPI)AfAm >90 (>60 ml/min/1.73 sqM) Est GFR (CKD-EPI)NonAf >90 (>60 ml/min/1.73 sqM) Glucose 181 H (74-99) mg/dL POC Glucose (mg/dL) 151 H (75-99) mg/dL POC Glu Watch Repairer ID Hidalgo, Hyacinth Calcium 10.1 (8.4-10.2) mg/dL Total Bilirubin 0.9 (0.2-1.3) mg/dL AST 19 (17-59) U/L ALT 33 (21-72) U/L Alkaline Phosphatase 95 (38-126) U/L Total Protein 7.7 (6.3-8.2) g/dL Albumin 4.8 (3.5-5.0) g/dL Amylase 91 (30-110) U/L Lipase 157 (23-300) U/L Urine Color Urine Appearance (Clear) Urine pH (5.0-8.0) Ur Specific [place] (1.001-1.035) Urine Protein (Negative) Urine Glucose (UA) (Negative) Urine Ketones (Negative) Urine Blood (Negative) Urine Nitrite (Negative) Urine Bilirubin (Negative) Urine Urobilinogen (<2.0) mg/dL Ur Leukocyte Esterase (Negative) Urine RBC (0-5) /hpf Urine WBC (0-5) /hpf Ur Squamous Epith Cells (0-4) /hpf Calcium Oxalate Crystal (None) /hpf Urine Mucus (None) /hpf Urine Sperm (None) /hpf Acetone, Qual Negative (Negative) 08/12/17 Range/Units 10:25 WBC (3.8-10.6) k/uL RBC (4.30-5.90) m/uL Hgb (13.0-17.5) gm/dL Hct (39.0-53.0) % MCV (80.0-100.0) fL MCH (25.0-35.0) pg MCHC (31.0-37.0) g/dL RDW (11.5-15.5) % Plt Count (150-450) k/uL Neutrophils % % Lymphocytes % % Monocytes % % Eosinophils % % Basophils % % Neutrophils # (1.3-7.7) k/uL Lymphocytes # (1.0-4.8) k/uL Monocytes # (0-1.0) k/uL Eosinophils # (0-0.7) k/uL Basophils # (0-0.2) k/uL Sodium (137-145) mmol/L Potassium (3.5-5.1) mmol/L Chloride (98-107) mmol/L Carbon Dioxide (22-30) mmol/L Anion Gap mmol/L BUN (9-20) mg/dL Creatinine (0.66-1.25) mg/dL Est GFR (CKD-EPI)AfAm (>60 ml/min/1.73 sqM) Est GFR (CKD-EPI)NonAf (>60 ml/min/1.73 sqM) Glucose (74-99) mg/dL POC Glucose (mg/dL) (75-99) mg/dL POC Glu Watch Repairer ID Calcium (8.4-10.2) mg/dL Total Bilirubin (0.2-1.3) mg/dL AST (17-59) U/L ALT (21-72) U/L Alkaline Phosphatase (38-126) U/L Total Protein (6.3-8.2) g/dL Albumin (3.5-5.0) g/dL Amylase (30-110) U/L Lipase (23-300) U/L Urine Color Yellow Urine Appearance Clear (Clear) Urine pH 6.0 (5.0-8.0) Ur Specific [place] 1.032 (1.001-1.035) Urine Protein 1+ H (Negative) Urine Glucose (UA) 2+ H (Negative) Urine Ketones Trace H (Negative) Urine Blood Trace H (Negative) Urine Nitrite Negative (Negative) Urine Bilirubin Negative (Negative) Urine Urobilinogen 2.0 (<2.0) mg/dL Ur Leukocyte Esterase Trace H (Negative) Urine RBC 6 H (0-5) /hpf Urine WBC 8 H (0-5) /hpf Ur Squamous Epith Cells <1 (0-4) /hpf Calcium Oxalate Crystal Few H (None) /hpf Urine Mucus Moderate H (None) /hpf Urine Sperm Rare (None) /hpf Acetone, Qual (Negative) Disposition Clinical Impression: Nausea and vomiting Disposition: HOME SELF-CARE Condition: Good Instructions: Acute Nausea and Vomiting (ED) Additional Instructions: Please use medication as discussed. Please follow-up with family doctor in the next 2 days of symptoms have not improved. Please return to emergency room if the symptoms increase or worsen or for any other concerns. Prescriptions: Metoclopramide HCl [Reglan] 10 mg PO Q6HR PRN #5 day PRN Reason: Nausea Referrals: Lacy Rodarte MD [Primary Care Provider] - 1-2 days Time of Disposition: 12:02
[2017-08-12 10:53] LABS: Basophils % (A) 1 %; Eosinophils # (A) 0.1 k/uL (0-0.7); Eosinophils % (A) 1 %; HCT 43.3 % (39.0-53.0); HGB 13.9 gm/dL (13.0-17.5); Lymphocytes # (A) 2.4 k/uL (1.0-4.8); Lymphocytes % (A) 29 %; MCHC 32.1 g/dL (31.0-37.0); MCV 81.2 fL (80.0-100.0); Mean Platelet Volume 7.2; Monocytes # (A) 0.7 k/uL (0-1.0); Monocytes % (A) 9 %; Neutrophils # (A) 4.9 k/uL (1.3-7.7); Neutrophils % (A) 59 %; Platelet Count 330 k/uL (150-450); RBC 5.33 m/uL (4.30-5.90); RDW 12.9 % (11.5-15.5); WBC 8.2 k/uL (3.8-10.6)
[2017-08-12 10:59] LABS: Appearance,Urine Clear (Clear); Bilirubin,Urine Negative (Negative); Blood,Urine Trace (Negative); Calcium Oxalate Crystals,Urine Few /hpf; Color,Urine Yellow; Glucose,Urine (UA) 2+ (Negative); Ketones,Urine Trace (Negative); Leukocyte Esterase,Urine Trace (Negative); Mucus,Urine Moderate /hpf; Nitrite,Urine Negative (Negative); Protein,Urine 1+ (Negative); RBC,Urine 6 /hpf (0-5); Specific Gravity,Urine 1.032 (1.001-1.035); Sperm,Urine Rare /hpf; Squamous Epithelial Cell,Urine <1 /hpf (0-4); WBC,Urine 8 /hpf (0-5)
[2017-08-12 11:02] LABS: ALT 33 U/L (21-72); AST 19 U/L (17-59); Albumin 4.8 g/dL (3.5-5.0); Alkaline Phosphatase 95 U/L (38-126); Amylase 91 U/L (30-110); Anion Gap 15 mmol/L; Blood Urea Nitrogen 13 mg/dL (9-20); Calcium 10.1 mg/dL (8.4-10.2); Carbon Dioxide 31 mmol/L (22-30); Chloride 99 mmol/L (98-107); Glucose 181 mg/dL (74-99); Lipase 157 U/L (23-300); Potassium 3.1 mmol/L (3.5-5.1); Sodium 145 mmol/L (137-145); Total Bilirubin 0.9 mg/dL (0.2-1.3); Total Protein 7.7 g/dL (6.3-8.2)
[2017-08-12] MEDS ORDERED: POTASSIUM CHLORIDE ER 20 MEQ TAB.ER PO STA (11:40)
[2017-08-12 12:48] VITALS: BP 141/90; PULSE 75; TEMP 97.8
== END 2017-08-12 12:45 | disposition home or self-care (01) ==
LOC: EC 09:54
DX: R11.2 Nausea with vomiting, unspecified (principal); E10.40 Type 1 diabetes mellitus with diabetic neuropathy, unspecified; Z79.4 Long term (current) use of insulin; Z91.040 Latex allergy status
CPT/HCPCS: 36415; 80053; 82150; 82009; 83690; 85025; 81001; 99284; 96374; 96375; 96361; J2550

== ENCOUNTER 2017-10-28 11:54 | Emergency (ER) | payer OTHER ==
[2017-10-28] MEDS ORDERED: SODIUM CHLORIDE 0.9% 1,000 ML IV STA (12:40)
--- NOTE | 2017-10-28 12:51 | ED ---
General Adult HPI - General Chief complaint: Headache Stated complaint: Stomach pain Time Seen by Provider: 10/28/17 12:30 Source: patient, RN notes reviewed Mode of arrival: ambulatory Limitations: no limitations - History of Present Illness Initial comments: This is a 32-year-old male with a benign past medical history except for diabetes and asthma who states he had the onset this morning of not feeling well had nausea vomiting times one some vague right-sided abdominal discomfort chills some lightheadedness and dizziness. He also states she's had some body aches and headache. He states every time he has eaten feels like this can come right back up. States had decrease intake today no diarrhea no sore throat earaches rhinorrhea no cough shortness of breath no dysuria no hematuria. No history of abdominal pathology family history of kidney stones. No other modifying factors - Related Data Home Medications Medication Instructions Recorded Confirmed Insulin Glargine,Hum.rec.anlog 24 unit SQ HS 08/08/17 08/08/17 [Basaglar Kwikpen U-100] Previous Rx's Medication Instructions Recorded Insulin Aspart [NovoLOG 8 unit SQ AC-TID #1 vial 06/27/17 (formulary)] Ondansetron HCl [Zofran] 4 mg PO Q8H PRN #15 tablet 08/11/17 Pantoprazole [Protonix] 40 mg PO BID #60 tablet. 08/11/17 Scopolamine 1.5MG/72Hr Patch 1 patch TRANSDERM Q72H #3 patch 08/11/17 [TransDerm Scop] Metoclopramide HCl [Reglan] 10 mg PO Q6HR PRN #5 day 08/12/17 Dicyclomine [Bentyl] 10 mg PO TID PRN #10 capsule 10/28/17 Allergies Allergy/AdvReac Type Severity Reaction Status Date / Time latex Allergy Rash/Hives Verified 10/28/17 12:15 Review of Systems ROS Statement: Those systems with pertinent positive or pertinent negative responses have been documented in the HPI. ROS Other: All systems not noted in ROS Statement are negative. Past Medical History Past Medical History: Asthma, Diabetes Mellitus Additional Past Medical History / Comment(s): IDDM type I, neuropathy bilateral feet, bronchitis History of Any Multi-Drug Resistant Organisms: None Reported Past Surgical History: No Surgical Hx Reported Additional Past Surgical History / Comment(s): Glass removed from head Past Anesthesia/Blood Transfusion Reactions: No Reported Reaction Past Psychological History: No Psychological Hx Reported Smoking Status: Current every day smoker Past Alcohol Use History: None Reported Past Drug Use History: Marijuana - Past Family History Father Family Medical History: Diabetes Mellitus Additional Family Medical History / Comment(s): Diabetes runs in father's side of family Mother Family Medical History: Hypertension General Exam - General Exam Comments Initial Comments: This is a well-developed well-nourished awake alert oriented 3 male Limitations: no limitations General appearance: alert, in no apparent distress Head exam: Present: atraumatic, normocephalic, normal inspection Eye exam: Present: normal appearance, PERRL, EOMI. Absent: scleral icterus, conjunctival injection, periorbital swelling ENT exam: Present: mucous membranes dry Neck exam: Present: normal inspection. Absent: tenderness, meningismus, lymphadenopathy Respiratory exam: Present: normal lung sounds bilaterally. Absent: respiratory distress, wheezes, rales, rhonchi, stridor Cardiovascular Exam: Present: regular rate, normal rhythm, normal heart sounds. Absent: systolic murmur, diastolic murmur, rubs, gallop, clicks GI/Abdominal exam: Present: soft, normal bowel sounds. Absent: distended, tenderness, guarding, rebound, rigid, bruit, pulsatile mass, hernia Extremities exam: Present: normal inspection, full ROM, normal capillary refill. Absent: tenderness, pedal edema, joint swelling, calf tenderness Back exam: Present: normal inspection Neurological exam: Present: alert, oriented X3, CN II-XII intact Psychiatric exam: Present: normal affect, normal mood Skin exam: Present: warm, dry, intact, normal color. Absent: rash Course Vital Signs 10/28/17 12:11 Temperature 97.7 F Pulse Rate 76 Respiratory 16 Rate Blood Pressure 134/74 O2 Sat by Pulse 99 Oximetry Medical Decision Making - Medical Decision Making Patient was feeling somewhat improved still having some crampy abdominal discomfort he will be discharged after pain medication follow-up with his doctor return when necessary the presentation is consistent with gastritis and spastic colon - Lab Data Result diagrams: 10/28/17 13:02 10/28/17 13:02 Lab Results 10/28/17 10/28/17 10/28/17 Range/Units 13:02 13:02 14:45 WBC 5.7 (3.8-10.6) k/uL RBC 5.60 (4.30-5.90) m/uL Hgb 15.4 (13.0-17.5) gm/dL Hct 46.2 (39.0-53.0) % MCV 82.4 (80.0-100.0) fL MCH 27.5 (25.0-35.0) pg MCHC 33.4 (31.0-37.0) g/dL RDW 13.2 (11.5-15.5) % Plt Count 308 (150-450) k/uL Neutrophils % 56 % Lymphocytes % 31 % Monocytes % 7 % Eosinophils % 2 % Basophils % 1 % Neutrophils # 3.2 (1.3-7.7) k/uL Lymphocytes # 1.8 (1.0-4.8) k/uL Monocytes # 0.4 (0-1.0) k/uL Eosinophils # 0.1 (0-0.7) k/uL Basophils # 0.0 (0-0.2) k/uL Sodium 134 L (137-145) mmol/L Potassium 3.9 (3.5-5.1) mmol/L Chloride 88 L (98-107) mmol/L Carbon Dioxide 35 H (22-30) mmol/L Anion Gap 11 mmol/L BUN 18 (9-20) mg/dL Creatinine 0.97 (0.66-1.25) mg/dL Est GFR (CKD-EPI)AfAm >90 (>60 ml/min/1.73 sqM) Est GFR (CKD-EPI)NonAf >90 (>60 ml/min/1.73 sqM) Glucose 287 H (74-99) mg/dL Calcium 9.9 (8.4-10.2) mg/dL Magnesium 2.0 (1.6-2.3) mg/dL Total Bilirubin 0.7 (0.2-1.3) mg/dL AST 24 (17-59) U/L ALT 47 (21-72) U/L Alkaline Phosphatase 76 (38-126) U/L Total Protein 6.8 (6.3-8.2) g/dL Albumin 4.3 (3.5-5.0) g/dL Amylase 69 (30-110) U/L Lipase 269 (23-300) U/L Urine Color Yellow Urine Appearance Clear (Clear) Urine pH 7.0 (5.0-8.0) Ur Specific [place] 1.023 (1.001-1.035) Urine Protein 1+ H (Negative) Urine Glucose (UA) 4+ H (Negative) Urine Ketones Negative (Negative) Urine Blood Negative (Negative) Urine Nitrite Negative (Negative) Urine Bilirubin Negative (Negative) Urine Urobilinogen 2.0 (<2.0) mg/dL Ur Leukocyte Esterase Negative (Negative) Urine WBC 3 (0-5) /hpf Ur Squamous Epith Cells <1 (0-4) /hpf Urine Mucus Rare H (None) /hpf - Radiology Data Radiology results: report reviewed (I did review the imaging and report no acute findings.), image reviewed Disposition Clinical Impression: Gastritis, Spastic colon, Dehydration Disposition: HOME SELF-CARE Condition: Good Instructions: Gastritis (ED), Irritable Bowel Syndrome (ED), Dehydration (ED) Prescriptions: Dicyclomine [Bentyl] 10 mg PO TID PRN #10 capsule PRN Reason: Pain Is patient prescribed a controlled substance at d/c from ED?: No Referrals: Lacy Rodarte MD [Primary Care Provider] - 1-2 days
[2017-10-28 13:14] LABS: Basophils % (A) 1 %; Eosinophils # (A) 0.1 k/uL (0-0.7); Eosinophils % (A) 2 %; HCT 46.2 % (39.0-53.0); HGB 15.4 gm/dL (13.0-17.5); Lymphocytes # (A) 1.8 k/uL (1.0-4.8); Lymphocytes % (A) 31 %; MCH 27.5 pg (25.0-35.0); MCHC 33.4 g/dL (31.0-37.0); MCV 82.4 fL (80.0-100.0); Mean Platelet Volume 6.2; Monocytes # (A) 0.4 k/uL (0-1.0); Monocytes % (A) 7 %; Neutrophils # (A) 3.2 k/uL (1.3-7.7); Neutrophils % (A) 56 %; Platelet Count 308 k/uL (150-450); RDW 13.2 % (11.5-15.5); WBC 5.7 k/uL (3.8-10.6)
--- NOTE | 2017-10-28 13:23 | XR ---
EXAMINATION TYPE: XR KUB DATE OF EXAM: 10/28/2017 COMPARISON: NONE HISTORY: Pain TECHNIQUE: Single supine KUB image of the abdomen is obtained FINDINGS: Small bowel demonstrates no evidence for dilatation or air fluid levels. Gas and fecal material is seen in non-distended colon. No convincing evidence for pneumoperitoneum. No unusual calcifications. The lung bases are clear. The osseous structures are intact. IMPRESSION: 1. Overall nonobstructive bowel gas pattern.
[2017-10-28 13:25] LABS: ALT 47 U/L (21-72); AST 24 U/L (17-59); Albumin 4.3 g/dL (3.5-5.0); Alkaline Phosphatase 76 U/L (38-126); Amylase 69 U/L (30-110); Anion Gap 11 mmol/L; Blood Urea Nitrogen 18 mg/dL (9-20); Calcium 9.9 mg/dL (8.4-10.2); Carbon Dioxide 35 mmol/L (22-30); Chloride 88 mmol/L (98-107); Glucose 287 mg/dL (74-99); Lipase 269 U/L (23-300); Potassium 3.9 mmol/L (3.5-5.1); Sodium 134 mmol/L (137-145); Total Bilirubin 0.7 mg/dL (0.2-1.3); Total Protein 6.8 g/dL (6.3-8.2)
[2017-10-28 14:59] LABS: Appearance,Urine Clear (Clear); Bilirubin,Urine Negative (Negative); Blood,Urine Negative (Negative); Color,Urine Yellow; Glucose,Urine (UA) 4+ (Negative); Ketones,Urine Negative (Negative); Leukocyte Esterase,Urine Negative (Negative); Mucus,Urine Rare /hpf; Nitrite,Urine Negative (Negative); Protein,Urine 1+ (Negative); Specific Gravity,Urine 1.023 (1.001-1.035); Squamous Epithelial Cell,Urine <1 /hpf (0-4); WBC,Urine 3 /hpf (0-5)
[2017-10-28] MEDS ORDERED: KETOROLAC 30 MG/ML 1 ML VIAL IVP STA (15:10)
[2017-10-28 15:31] VITALS: BP 157/76; PULSE 69; RESP 18; TEMP 98.7
== END 2017-10-28 15:31 | disposition home or self-care (01) ==
LOC: EC 11:54
DX: K29.70 Gastritis, unspecified, without bleeding (principal); K58.9 Irritable bowel syndrome, unspecified; E86.0 Dehydration; E10.40 Type 1 diabetes mellitus with diabetic neuropathy, unspecified; R51 Headache; R42 Dizziness and giddiness; F17.200 Nicotine dependence, unspecified, uncomplicated; Z79.4 Long term (current) use of insulin; Z91.040 Latex allergy status
CPT/HCPCS: 36415; 80053; 82150; 83690; 83735; 85025; 81001; 74018; 99284; 96374; 96361; J1885

== ENCOUNTER 2018-10-19 09:52 | Emergency (ER) | payer OTHER ==
[2018-10-19] MEDS ORDERED: KETOROLAC 30 MG/ML 1 ML VIAL IVP STA (10:26)
[2018-10-19] MEDS ORDERED: ONDANSETRON 4 MG/2 ML VIAL IVP STA (10:26)
[2018-10-19] MEDS ORDERED: SODIUM CHLORIDE 0.9% 1,000 ML IV STA (10:26)
--- NOTE | 2018-10-19 10:28 | ED ---
Abdominal Pain HPI - General Chief Complaint: Abdominal Pain Stated Complaint: ABDOMINAL ISSUE Time Seen by Provider: 10/19/18 10:05 Source: patient, RN notes reviewed, old records reviewed Mode of arrival: ambulatory Limitations: no limitations - History of Present Illness Initial Comments: Patient is a 33-year-old male presents emergency department today with one week of nausea and vomiting. He reports that on Monday he had a fever and had some diarrhea associated with the symptoms. He states the diarrhea slowly subsiding but he has not been eating for the past week. He states that he has been trying to remain hydrated by drinking small sips of fluid. He states he just generally feels ill and fatigued. Patient relates that he has no significant past medical history or surgical history of his abdomen. Patient has had no recent fever thi s time. He denies any specific abdominal pain. - Related Data Home Medications Medication Instructions Recorded Confirmed Insulin Glargine,Hum.rec.anlog 24 unit SQ HS 10/19/18 10/19/18 [Basaglar Kwikpen U-100] Previous Rx's Medication Instructions Recorded Ondansetron Odt [Zofran Odt] 4 mg PO Q8HR PRN #12 tab 10/19/18 Allergies Allergy/AdvReac Type Severity Reaction Status Date / Time latex Allergy Rash/Hives Verified 10/19/18 10:21 Review of Systems ROS Statement: Those systems with pertinent positive or pertinent negative responses have been documented in the HPI. ROS Other: All systems not noted in ROS Statement are negative. Past Medical History Past Medical History: Asthma, Diabetes Mellitus Additional Past Medical History / Comment(s): IDDM type I, neuropathy bilateral feet, bronchitis History of Any Multi-Drug Resistant Organisms: None Reported Past Surgical History: No Surgical Hx Reported Additional Past Surgical History / Comment(s): Glass removed from head Past Anesthesia/Blood Transfusion Reactions: No Reported Reaction Past Psychological History: No Psychological Hx Reported Smoking Status: Former smoker Past Alcohol Use History: None Reported Past Drug Use History: Marijuana - Past Family History Father Family Medical History: Diabetes Mellitus Additional Family Medical History / Comment(s): Diabetes runs in father's side of family Mother Family Medical History: Hypertension General Exam - General Exam Comments Initial Comments: Physical 33-year-old -Serbian male. Alert and oriented. No distress. Limitations: no limitations General appearance: alert, in no apparent distress Head exam: Present: atraumatic, normocephalic, normal inspection Eye exam: Present: normal appearance, PERRL, EOMI. Absent: scleral icterus, conjunctival injection, periorbital swelling ENT exam: Present: normal exam, mucous membranes moist Neck exam: Present: normal inspection. Absent: tenderness, meningismus, lymphadenopathy Respiratory exam: Present: normal lung sounds bilaterally. Absent: respiratory distress, wheezes, rales, rhonchi, stridor Cardiovascular Exam: Present: regular rate, normal rhythm, normal heart sounds. Absent: systolic murmur, diastolic murmur, rubs, gallop, clicks GI/Abdominal exam: Present: soft, normal bowel sounds. Absent: distended, tenderness, guarding, rebound, rigid Extremities exam: Present: normal inspection, full ROM, normal capillary refill. Absent: tenderness, pedal edema, joint swelling, calf tenderness Back exam: Present: normal inspection Neurological exam: Present: alert, oriented X3, CN II-XII intact Psychiatric exam: Present: normal affect, normal mood Skin exam: Present: warm, dry, intact, normal color. Absent: rash Course Vital Signs 10/19/18 09:57 Temperature 98.5 F Pulse Rate 108 H Respiratory 18 Rate Blood Pressure 135/87 O2 Sat by Pulse 98 Oximetry Medical Decision Making - Medical Decision Making Patient is a 33-year-old male presents nausea vomiting. He states that he is diabetic. He has not a much over the past week. He isn't feeling somewhat better but still feeling weak. Fluids labwork obtained. An eye gets normal. Blood sugar is mildly elevated. Patient urinalysis is positive for ketones and glucose. He was given 2 L bolus. Patient's urinalysis did have some white blood cells and red blood cells. Urine culture completed and cleaning on retesting added. Patient denies any concern for STDs at this time. Weightbearing culture for treatment. Patient will be advised to have close follow-up with primary care doctor and discharged with nausea medication. - Lab Data Result diagrams: 10/19/18 10:44 10/19/18 10:44 Lab Results 10/19/18 10/19/18 10/19/18 Range/Units 10:44 10:44 11:49 WBC 7.2 (3.8-10.6) k/uL RBC 5.95 H (4.30-5.90) m/uL Hgb 15.6 (13.0-17.5) gm/dL Hct 47.7 (39.0-53.0) % MCV 80.2 (80.0-100.0) fL MCH 26.2 (25.0-35.0) pg MCHC 32.7 (31.0-37.0) g/dL RDW 12.7 (11.5-15.5) % Plt Count 335 (150-450) k/uL Neutrophils % 64 % Lymphocytes % 24 % Monocytes % 7 % Eosinophils % 1 % Basophils % 0 % Neutrophils # 4.6 (1.3-7.7) k/uL Lymphocytes # 1.7 (1.0-4.8) k/uL Monocytes # 0.5 (0-1.0) k/uL Eosinophils # 0.1 (0-0.7) k/uL Basophils # 0.0 (0-0.2) k/uL Sodium 134 L (137-145) mmol/L Potassium 4.1 (3.5-5.1) mmol/L Chloride 93 L (98-107) mmol/L Carbon Dioxide 25 (22-30) mmol/L Anion Gap 16 mmol/L BUN 26 H (9-20) mg/dL Creatinine 1.16 (0.66-1.25) mg/dL Est GFR (CKD-EPI)AfAm >90 (>60 ml/min/1.73 sqM) Est GFR (CKD-EPI)NonAf 82 (>60 ml/min/1.73 sqM) Glucose 278 H (74-99) mg/dL Calcium 10.0 (8.4-10.2) mg/dL Total Bilirubin 1.1 (0.2-1.3) mg/dL AST 29 (17-59) U/L ALT 34 (21-72) U/L Alkaline Phosphatase 95 (38-126) U/L Total Protein 7.7 (6.3-8.2) g/dL Albumin 4.8 (3.5-5.0) g/dL Amylase 58 (30-110) U/L Lipase 56 (23-300) U/L Urine Color Yellow Urine Appearance Clear (Clear) Urine pH 6.0 (5.0-8.0) Ur Specific [place] 1.033 (1.001-1.035) Urine Protein 2+ H (Negative) Urine Glucose (UA) 4+ H (Negative) Urine Ketones 3+ H (Negative) Urine Blood Small H (Negative) Urine Nitrite Negative (Negative) Urine Bilirubin Negative (Negative) Urine Urobilinogen 2.0 (<2.0) mg/dL Ur Leukocyte Esterase Trace H (Negative) Urine RBC 15 H (0-5) /hpf Urine WBC 10 H (0-5) /hpf Ur Squamous Epith Cells <1 (0-4) /hpf Hyaline Casts 35 H (0-2) /lpf Urine Mucus Rare H (None) /hpf Disposition Clinical Impression: Gastroenteritis Disposition: HOME SELF-CARE Condition: Good Instructions (If sedation given, give patient instructions): Acute Nausea and Vomiting (ED) Additional Instructions: Patient advised to follow-up with primary care doctor. Return to the emergency department if any alarming signs or symptoms occur. Prescriptions: Ondansetron Odt [Zofran Odt] 4 mg PO Q8HR PRN #12 tab PRN Reason: Nausea Is patient prescribed a controlled substance at d/c from ED?: No Referrals: Lacy Rodarte MD [Primary Care Provider] - 1-2 days Time of Disposition: 12:38
[2018-10-19 11:01] LABS: Basophils % (A) 0 %; Eosinophils # (A) 0.1 k/uL (0-0.7); Eosinophils % (A) 1 %; HCT 47.7 % (39.0-53.0); HGB 15.6 gm/dL (13.0-17.5); Lymphocytes # (A) 1.7 k/uL (1.0-4.8); Lymphocytes % (A) 24 %; MCH 26.2 pg (25.0-35.0); MCHC 32.7 g/dL (31.0-37.0); MCV 80.2 fL (80.0-100.0); Mean Platelet Volume 6.4; Monocytes # (A) 0.5 k/uL (0-1.0); Monocytes % (A) 7 %; Neutrophils # (A) 4.6 k/uL (1.3-7.7); Neutrophils % (A) 64 %; Platelet Count 335 k/uL (150-450); RBC 5.95 m/uL (4.30-5.90); RDW 12.7 % (11.5-15.5); WBC 7.2 k/uL (3.8-10.6)
[2018-10-19 11:13] LABS: ALT 34 U/L (21-72); AST 29 U/L (17-59); Albumin 4.8 g/dL (3.5-5.0); Alkaline Phosphatase 95 U/L (38-126); Amylase 58 U/L (30-110); Anion Gap 16 mmol/L; Blood Urea Nitrogen 26 mg/dL (9-20); Carbon Dioxide 25 mmol/L (22-30); Chloride 93 mmol/L (98-107); Glucose 278 mg/dL (74-99); Lipase 56 U/L (23-300); Potassium 4.1 mmol/L (3.5-5.1); Sodium 134 mmol/L (137-145); Total Bilirubin 1.1 mg/dL (0.2-1.3); Total Protein 7.7 g/dL (6.3-8.2)
[2018-10-19 12:18] LABS: Appearance,Urine Clear (Clear); Bilirubin,Urine Negative (Negative); Blood,Urine Small (Negative); Color,Urine Yellow; Glucose,Urine (UA) 4+ (Negative); Hyaline Casts,Urine 35 /lpf (0-2); Leukocyte Esterase,Urine Trace (Negative); Mucus,Urine Rare /hpf; Nitrite,Urine Negative (Negative); Protein,Urine 2+ (Negative); RBC,Urine 15 /hpf (0-5); Specific Gravity,Urine 1.033 (1.001-1.035); Squamous Epithelial Cell,Urine <1 /hpf (0-4); WBC,Urine 10 /hpf (0-5)
[2018-10-19 12:23] LABS: Ketones,Urine 3+ (Negative)
[2018-10-19 13:13] VITALS: BP 123/86; PULSE 88; RESP 16; TEMP 97.9
== END 2018-10-19 13:13 | disposition home or self-care (01) ==
LOC: EC 09:52
DX: K52.9 Noninfective gastroenteritis and colitis, unspecified (principal); R53.1 Weakness; R82.4 Acetonuria; R31.9 Hematuria, unspecified; R82.998 Other abnormal findings in urine; E10.42 Type 1 diabetes mellitus with diabetic polyneuropathy; Z87.891 Personal history of nicotine dependence; Z91.040 Latex allergy status; Z79.4 Long term (current) use of insulin; Z83.3 Family history of diabetes mellitus; Z53.20 Procedure and treatment not carried out because of patient's decision for unspecified reasons
CPT/HCPCS: 36415; 80053; 82150; 83690; 85025; 81001; 87491; 87591; 87086; 99284; 96374; 96361; J2405

== ENCOUNTER 2019-02-22 13:54 | Emergency (ER) | payer OTHER ==
[2019-02-22 14:03] VITALS: TEMP 97.9
[2019-02-22] MEDS ORDERED: ONDANSETRON 4 MG/2 ML VIAL IVP STA ×2 (14:46→18:56)
[2019-02-22] MEDS ORDERED: SODIUM CHLORIDE 0.9% 500 ML 500 ML IV ONE (14:46)
[2019-02-22] MEDS ORDERED: SODIUM CHLORIDE 0.9% 1,000 ML IV ONE (14:46)
[2019-02-22 15:10] LABS: Basophils # (A) 0.2 k/uL (0-0.2); Basophils % (A) 2 %; Eosinophils # (A) 0.1 k/uL (0-0.7); Eosinophils % (A) 1 %; HCT 44.6 % (39.0-53.0); HGB 15.3 gm/dL (13.0-17.5); Lymphocytes # (A) 1.5 k/uL (1.0-4.8); Lymphocytes % (A) 16 %; MCH 27.3 pg (25.0-35.0); MCHC 34.2 g/dL (31.0-37.0); MCV 79.9 fL (80.0-100.0); Mean Platelet Volume 6.5; Monocytes # (A) 0.6 k/uL (0-1.0); Monocytes % (A) 6 %; Neutrophils % (A) 74 %; Platelet Count 325 k/uL (150-450); RBC 5.59 m/uL (4.30-5.90); RDW 12.8 % (11.5-15.5); WBC 9.6 k/uL (3.8-10.6)
[2019-02-22 15:21] LABS: ALT 35 U/L (21-72); AST 24 U/L (17-59); African American GFR (CKD) >90 (>60 ml/min/1.73 sqM); Albumin 4.7 g/dL (3.5-5.0); Alkaline Phosphatase 98 U/L (38-126); Anion Gap 13 mmol/L; Blood Urea Nitrogen 16 mg/dL (9-20); Calcium 9.9 mg/dL (8.4-10.2); Carbon Dioxide 29 mmol/L (22-30); Chloride 90 mmol/L (98-107); Glucose 332 mg/dL (74-99); Potassium 3.9 mmol/L (3.5-5.1); Sodium 132 mmol/L (137-145); Total Bilirubin 0.7 mg/dL (0.2-1.3); Total Protein 7.7 g/dL (6.3-8.2)
--- NOTE | 2019-02-22 16:12 | ED ---
General Adult HPI - General Chief complaint: Nausea/Vomiting/Diarrhea Stated complaint: POSS DEHYDRATION, VOMITING, DIARRHEA Time Seen by Provider: 02/22/19 14:45 Source: patient Mode of arrival: ambulatory Limitations: no limitations - History of Present Illness Initial comments: 33-year-old male history of diabetes, HTN presents emergency department for evaluation of nausea vomiting diarrhea 2 days. Patient states he has had vomiting and diarrhea for the past 2 days as well as nausea. Patient denies any abdominal pain denies any melena hematochezia, emesis. Patient denies any fevers sick contacts or recent travel. Patient denies any headache neck stiffness visual changes or any other associated complaints. Patient was concerned dehydration given the persistent symptoms. I presents emergency room for further evaluation. Remaining review of systems negative. Upon arrival patient appears well no signs of acute distress. - Related Data Home Medications Medication Instructions Recorded Confirmed Insulin Glargine,Hum.rec.anlog 24 unit SQ HS 10/19/18 10/19/18 [Basaglar Kwikpen U-100] Previous Rx's Medication Instructions Recorded Ondansetron Odt [Zofran Odt] 4 mg PO Q8HR PRN #12 tab 10/19/18 Metoclopramide HCl [Reglan] 10 mg PO Q12H PRN 5 Days #10 tablet 02/22/19 Allergies Allergy/AdvReac Type Severity Reaction Status Date / Time latex Allergy Rash/Hives Verified 02/22/19 14:03 Review of Systems ROS Statement: Those systems with pertinent positive or pertinent negative responses have been documented in the HPI. ROS Other: All systems not noted in ROS Statement are negative. Past Medical History Past Medical History: Asthma, Diabetes Mellitus Additional Past Medical History / Comment(s): IDDM type I, neuropathy bilateral feet, bronchitis History of Any Multi-Drug Resistant Organisms: None Reported Past Surgical History: No Surgical Hx Reported Additional Past Surgical History / Comment(s): Glass removed from head Past Anesthesia/Blood Transfusion Reactions: No Reported Reaction Past Psychological History: No Psychological Hx Reported Smoking Status: Former smoker Past Alcohol Use History: None Reported Past Drug Use History: Marijuana - Past Family History Father Family Medical History: Diabetes Mellitus Additional Family Medical History / Comment(s): Diabetes runs in father's side of family Mother Family Medical History: Hypertension General Exam - General Exam Comments Initial Comments: General: The patient is awake and alert, in no distress, and does not appear acutely ill. Eye: +3 mm pupils are equal, round and reactive to light, extra-ocular mov ements are intact. No nystagmus. There is normal conjunctiva bilaterally. No signs of icterus. Ears, nose, mouth and throat: There are moist mucous membranes and no oral lesions. Neck: The neck is supple, there is no tenderness or JVD. Cardiovascular: There is a regular rate and rhythm. No murmur, rub or gallop is appreciated. Respiratory: Lungs are clear to auscultation, respirations are non-labored, breath sounds are equal. No wheezes, stridor, rales, or rhonchi. Gastrointestinal: Soft, non-distended, non-tender abdomen without masses or organomegaly noted. There is no rebound or guarding present. Bowel sounds are unremarkable. Musculoskeletal: Normal ROM, no tenderness. Strength 5/5. Sensation intact. Radial pulses equal bilaterally 2+. Neurological: A&O x 3. CN II-XII intact grossly, There are no obvious motor or sensory deficits. Coordination appears grossly intact. Speech is normal. Skin: Skin is warm and dry and no rashes or lesions are noted. Psychiatric: Cooperative, appropriate mood & affect, normal judgment. Limitations: no limitations Course Vital Signs 02/22/19 02/22/19 14:01 19:21 Temperature 97.9 F Pulse Rate 71 89 Respiratory 20 16 Rate Blood Pressure 136/81 160/98 O2 Sat by Pulse 99 98 Oximetry Medical Decision Making - Medical Decision Making 33-year-old male presents emergency department for her nausea vomiting diarrhea 2 days. Patient had active vomiting in the emergency department. Patient is given multi-antiemetics. Patient was given IV hydration. Patient was noted to HAVE elevated blood glucose. Patient does not appear to be in DKA. Acetone negative. Patient is +1 ketones. She was given subcu insulin for elevated blood glucose levels. Abdominal exam is benign. Patient denies any melena hematochezia or emesis. Patient denies any chest pain or shortness of breath. After evaluation patient having discussion of care patient is agreeable with discharge with torey WAYNE, outpatient follow-up. Patient did have noted hematuria, recommended outpatient f/u. Patient agreeable case discussed with Dr. Parham patient discharge appearing well. - Lab Data Result diagrams: 02/22/19 15:02 02/22/19 15:02 Lab Results 02/22/19 02/22/19 02/22/19 Range/Units 15:02 15:02 15:02 WBC 9.6 (3.8-10.6) k/uL RBC 5.59 (4.30-5.90) m/uL Hgb 15.3 (13.0-17.5) gm/dL Hct 44.6 (39.0-53.0) % MCV 79.9 L (80.0-100.0) fL MCH 27.3 (25.0-35.0) pg MCHC 34.2 (31.0-37.0) g/dL RDW 12.8 (11.5-15.5) % Plt Count 325 (150-450) k/uL Neutrophils % 74 % Lymphocytes % 16 % Monocytes % 6 % Eosinophils % 1 % Basophils % 2 % Neutrophils # 7.0 (1.3-7.7) k/uL Lymphocytes # 1.5 (1.0-4.8) k/uL Monocytes # 0.6 (0-1.0) k/uL Eosinophils # 0.1 (0-0.7) k/uL Basophils # 0.2 (0-0.2) k/uL Sodium 132 L (137-145) mmol/L Potassium 3.9 (3.5-5.1) mmol/L Chloride 90 L (98-107) mmol/L Carbon Dioxide 29 (22-30) mmol/L Anion Gap 13 mmol/L BUN 16 (9-20) mg/dL Creatinine 1.08 (0.66-1.25) mg/dL Est GFR (CKD-EPI)AfAm >90 (>60 ml/min/1.73 sqM) Est GFR (CKD-EPI)NonAf 88 (>60 ml/min/1.73 sqM) Glucose 332 H (74-99) mg/dL POC Glucose (mg/dL) (75-99) mg/dL POC Glu Dairy Feed Mixing Operator ID Calcium 9.9 (8.4-10.2) mg/dL Total Bilirubin 0.7 (0.2-1.3) mg/dL AST 24 (17-59) U/L ALT 35 (21-72) U/L Alkaline Phosphatase 98 (38-126) U/L Total Protein 7.7 (6.3-8.2) g/dL Albumin 4.7 (3.5-5.0) g/dL Urine Color Urine Appearance (Clear) Urine pH (5.0-8.0) Ur Specific [place] (1.001-1.035) Urine Protein (Negative) Urine Glucose (UA) (Negative) Urine Ketones (Negative) Urine Blood (Negative) Urine Nitrite (Negative) Urine Bilirubin (Negative) Urine Urobilinogen (<2.0) mg/dL Ur Leukocyte Esterase (Negative) Urine RBC (0-5) /hpf Urine WBC (0-5) /hpf Hyaline Casts (0-2) /lpf Urine Mucus (None) /hpf Acetone, Qual Negative (Negative) 02/22/19 02/22/19 02/22/19 Range/Units 16:27 17:37 19:01 WBC (3.8-10.6) k/uL RBC (4.30-5.90) m/uL Hgb (13.0-17.5) gm/dL Hct (39.0-53.0) % MCV (80.0-100.0) fL MCH (25.0-35.0) pg MCHC (31.0-37.0) g/dL RDW (11.5-15.5) % Plt Count (150-450) k/uL Neutrophils % % Lymphocytes % % Monocytes % % Eosinophils % % Basophils % % Neutrophils # (1.3-7.7) k/uL Lymphocytes # (1.0-4.8) k/uL Monocytes # (0-1.0) k/uL Eosinophils # (0-0.7) k/uL Basophils # (0-0.2) k/uL Sodium (137-145) mmol/L Potassium (3.5-5.1) mmol/L Chloride (98-107) mmol/L Carbon Dioxide (22-30) mmol/L Anion Gap mmol/L BUN (9-20) mg/dL Creatinine (0.66-1.25) mg/dL Est GFR (CKD-EPI)AfAm (>60 ml/min/1.73 sqM) Est GFR (CKD-EPI)NonAf (>60 ml/min/1.73 sqM) Glucose (74-99) mg/dL POC Glucose (mg/dL) 252 H 264 H (75-99) mg/dL POC Glu Dairy Feed Mixing Operator ID Emily aCstillo Kara Calcium (8.4-10.2) mg/dL Total Bilirubin (0.2-1.3) mg/dL AST (17-59) U/L ALT (21-72) U/L Alkaline Phosphatase (38-126) U/L Total Protein (6.3-8.2) g/dL Albumin (3.5-5.0) g/dL Urine Color Light Yellow Urine Appearance Clear (Clear) Urine pH 6.0 (5.0-8.0) Ur Specific [place] 1.021 (1.001-1.035) Urine Protein 1+ H (Negative) Urine Glucose (UA) 4+ H (Negative) Urine Ketones 1+ H (Negative) Urine Blood Moderate H (Negative) Urine Nitrite Negative (Negative) Urine Bilirubin Negative (Negative) Urine Urobilinogen <2.0 (<2.0) mg/dL Ur Leukocyte Esterase Negative (Negative) Urine RBC 4 (0-5) /hpf Urine WBC 2 (0-5) /hpf Hyaline Casts 1 (0-2) /lpf Urine Mucus Rare H (None) /hpf Acetone, Qual (Negative) Disposition Clinical Impression: Vomiting, Diarrhea, Blood glucose elevated, Hx of diabetes mellitus, Hematuria Disposition: HOME SELF-CARE Condition: Good Instructions (If sedation given, give patient instructions): Acute Nausea and Vomiting (ED), Acute Diarrhea (ED) Additional Instructions: Please use medication as discussed. Please follow-up with family doctor in the next 2 days for blood in urine, and close follow-up. Zofran RX was cancelled please only take the reglan as discussed. Please return to emergency room if the symptoms increase or worsen or for any other concerns. Prescriptions: Metoclopramide HCl [Reglan] 10 mg PO Q12H PRN 5 Days #10 tablet PRN Reason: Nausea Is patient prescribed a controlled substance at d/c from ED?: No Referrals: Lacy Rodarte MD [Primary Care Provider] - 1-2 days Time of Disposition: 18:54
[2019-02-22 16:43] LABS: Appearance,Urine Clear (Clear); Bilirubin,Urine Negative (Negative); Blood,Urine Moderate (Negative); Color,Urine Light Yellow; Glucose,Urine (UA) 4+ (Negative); Hyaline Casts,Urine 1 /lpf (0-2); Ketones,Urine 1+ (Negative); Leukocyte Esterase,Urine Negative (Negative); Mucus,Urine Rare /hpf; Nitrite,Urine Negative (Negative); Protein,Urine 1+ (Negative); RBC,Urine 4 /hpf (0-5); Specific Gravity,Urine 1.021 (1.001-1.035); Urobilinogen,Urine <2.0 mg/dL (<2.0); WBC,Urine 2 /hpf (0-5)
--- NOTE | 2019-02-22 17:03 | XR ---
EXAMINATION TYPE: XR abdomen acute w cxr DATE OF EXAM: 02/22/2019 COMPARISON: 11-13October 28, 2017 HISTORY: Nausea and vomiting TECHNIQUE: Chest x-ray with supine and upright abdomen FINDINGS: Heart and mediastinum are normal. Lungs are clear. Diaphragm is normal. Bony thorax is intact. Bowel gas pattern is normal. There is no sign of intestinal obstruction or pneumoperitoneum. Fecal pa ttern is normal. There are no pathologic calcifications.. IMPRESSION: Nonacute abdomen. Normal chest. No change.
[2019-02-22] MEDS ORDERED: METOCLOPRAMIDE 5 MG/ML 2 ML VIAL IVP STA (17:17)
[2019-02-22 17:39] LABS: Glucose,Whole Blood 252 mg/dL (75-99)
[2019-02-22] MEDS ORDERED: INSULIN REGULAR 100 UNIT/ML VIAL SQ ONE (17:41)
[2019-02-22] MEDS ORDERED: ONDANSETRON ODT 4 MG TAB PO STA (19:00)
[2019-02-22 19:03] LABS: Glucose,Whole Blood 264 mg/dL (75-99)
[2019-02-22] MEDS ORDERED: ONDANSETRON 4 MG ODT STARTER PACK 2 TAB BTL PO STA (19:16)
[2019-02-22 19:22] VITALS: BP 160/98; PULSE 89; RESP 16
== END 2019-02-22 19:39 | disposition home or self-care (01) ==
LOC: EC 13:54
DX: R11.2 Nausea with vomiting, unspecified (principal); E11.65 Type 2 diabetes mellitus with hyperglycemia; R19.7 Diarrhea, unspecified; R31.9 Hematuria, unspecified; I10 Essential (primary) hypertension; Z79.4 Long term (current) use of insulin; Z91.040 Latex allergy status; Z87.891 Personal history of nicotine dependence; Z83.3 Family history of diabetes mellitus
CPT/HCPCS: 99284; 96374; 96375; 96361; 36415; 80053; 82009; 85025; 81001; 74022; J2765; J2405; S0119

== ENCOUNTER 2019-05-14 21:03 | Observation (INO) | payer OTHER ==
[2019-05-14] MEDS ORDERED: PANTOPRAZOLE 40 MG/10 ML VIAL IVP STA (21:21)
[2019-05-14] MEDS ORDERED: ONDANSETRON 4 MG/2 ML VIAL IVP STA (21:21)
[2019-05-14] MEDS ORDERED: SODIUM CHLORIDE 0.9% 1,000 ML IV STA (21:21)
[2019-05-14 21:36] LABS: Glucose,Whole Blood 343 mg/dL (75-99)
[2019-05-14 21:53] LABS: ALT 22 U/L (4-49); AST 25 U/L (17-59); African American GFR (CKD) 51 (>60 ml/min/1.73 sqM); Alkaline Phosphatase 116 U/L (38-126); Amylase 95 U/L (30-110); Anion Gap 13 mmol/L; Blood Urea Nitrogen 48 mg/dL (9-20); Calcium 10.5 mg/dL (8.4-10.2); Carbon Dioxide 39 mmol/L (22-30); Chloride 79 mmol/L (98-107); Glucose 361 mg/dL (74-99); Non-African American GFR(CKD) 44 (>60 ml/min/1.73 sqM); Potassium 3.2 mmol/L (3.5-5.1); Sodium 131 mmol/L (137-145); Total Bilirubin 1.3 mg/dL (0.2-1.3); Total Protein 8.3 g/dL (6.3-8.2)
[2019-05-14 22:05] LABS: Basophils # (A) 0.3 k/uL (0-0.2); Basophils % (A) 4 %; Eosinophils # (A) 0.1 k/uL (0-0.7); Eosinophils % (A) 1 %; HCT 49.7 % (39.0-53.0); HGB 16.8 gm/dL (13.0-17.5); Lymphocytes # (A) 2.5 k/uL (1.0-4.8); Lymphocytes % (A) 26 %; MCH 27.1 pg (25.0-35.0); MCHC 33.8 g/dL (31.0-37.0); MCV 80.4 fL (80.0-100.0); Mean Platelet Volume 7.5; Monocytes # (A) 0.8 k/uL (0-1.0); Monocytes % (A) 9 %; Neutrophils # (A) 5.5 k/uL (1.3-7.7); Neutrophils % (A) 58 %; Platelet Count 389 k/uL (150-450); RBC 6.18 m/uL (4.30-5.90); RDW 11.6 % (11.5-15.5); WBC 9.5 k/uL (3.8-10.6)
[2019-05-14 22:52] LABS: Appearance,Urine Clear (Clear); Bilirubin,Urine Negative (Negative); Blood,Urine Moderate (Negative); Color,Urine Yellow; Glucose,Urine (UA) 4+ (Negative); Hyaline Casts,Urine 3 /lpf (0-2); Ketones,Urine Negative (Negative); Leukocyte Esterase,Urine Negative (Negative); Mucus,Urine Rare /hpf; Nitrite,Urine Negative (Negative); PH, Urine 6.5 (5.0-8.0); Protein,Urine 2+ (Negative); RBC,Urine 8 /hpf (0-5); Specific Gravity,Urine 1.021 (1.001-1.035); Squamous Epithelial Cell,Urine <1 /hpf (0-4); Urobilinogen,Urine <2.0 mg/dL (<2.0); WBC,Urine 4 /hpf (0-5)
--- NOTE | 2019-05-14 22:57 | ED ---
Weakness HPI - General Chief complaint: Weakness Stated complaint: Weakness Time Seen by Provider: 05/14/19 21:10 Source: patient Mode of arrival: ambulatory Limitations: no limitations - History of Present Illness Initial comments: Patient is a 33-year-old male, with past medical history of IDDM 1, presenting with nausea, vomiting, abdominal cramping for approximately 4 days. Patient states he's been feeling increasingly weak as well and has not been able to eat or drink much. Patient took his blood sugar this morning and it was in the 400s. Patient did give himself 20 units of insulin. Patient denies recent fever, chills, severe abdominal pain, urinary complaints. Patient has no other complaints at this time. Upon arrival to the ER, patient was tachycardia at 117, rest of vitals are normal. - Related Data Home Medications Medication Instructions Recorded Confirmed Insulin Glargine,Hum.rec.anlog 10 unit SQ BID 10/19/18 05/14/19 [Basaglar Kwikpen U-100] Allergies Allergy/AdvReac Type Severity Reaction Status Date / Time latex Allergy Rash/Hives Verified 05/14/19 23:51 Review of Systems ROS Statement: Those systems with pertinent positive or pertinent negative responses have been documented in the HPI. ROS Other: All systems not noted in ROS Statement are negative. Past Medical History Past Medical History: Asthma, Diabetes Mellitus Additional Past Medical History / Comment(s): IDDM type I, neuropathy bilateral feet, bronchitis History of Any Multi-Drug Resistant Organisms: None Reported Past Surgical History: No Surgical Hx Reported Additional Past Surgical History / Comment(s): Glass removed from head Past Anesthesia/Blood Transfusion Reactions: No Reported Reaction Past Psychological History: No Psychological Hx Reported Smoking Status: Former smoker Past Alcohol Use History: None Reported Past Drug Use History: Marijuana - Past Family History Father Family Medical History: Diabetes Mellitus Additional Family Medical History / Comment(s): Diabetes runs in father's side of family Mother Family Medical History: Hypertension General Exam - General Exam Comments Initial Comments: GENERAL: Patient very nauseous during exam, appears uncomfortable. HEAD: Atraumatic, normocephalic. EYES: Pupils equal round and reactive to light, extraocular movements intact, sclera anicteric, conjunctiva are normal. ENT: Nares patent, oropharynx clear without exudates. Moist mucous membranes. NECK: Normal range of motion, supple without lymphadenopathy or JVD. LUNGS: Breath sounds clear to auscultation bilaterally and equal. No wheezes rales or rhonchi. HEART: Tachycardia rate and rhythm without murmurs, rubs or gallops. ABDOMEN: Mild generalized tenderness, no severe pain in any quadrant. Soft, normoactive bowel sounds. No guarding, no rebound. No masses appreciated. : Deferred EXTREMITIES: Normal range of motion, no pitting or edema. No clubbing or cyanosis. NEUROLOGICAL: Normal speech, normal gait. PSYCH: Normal mood, normal affect. SKIN: Warm, Dry, normal turgor, no rashes or lesions noted. Limitations: no limitations Course Vital Signs 05/14/19 05/14/19 21:04 23:13 Temperature 97.8 F 98.8 F Pulse Rate 117 H 89 Respiratory 18 18 Rate Blood Pressure 133/84 135/93 O2 Sat by Pulse 98 95 Oximetry EKG Findings - EKG Comments: EKG Findings:: Ventricular rate 81, ND interval 144, QTC 469. Normal sinus rhythm. Possible left atrial enlargement. RSR or QR pattern in V1 suggesting right ventricular contraction delay. Medical Decision Making - Medical Decision Making Patient is a 33-year-old male presenting with nausea, vomiting 4 days. Patient is IDDM 1. Patient is slightly tachycardia upon arrival. Labs reveal sodium 131, potassium 3.2. CO2 is 39, BUN is 48, creatinine 1.91 glucose is 361, lipase 360. Acetone is negative. UA shows 4+ glucose 2+ protein. Patient was given a liter bolus as well as Zofran and Protonix. He reports improvement in symptoms. Patient will be admitted to the hospital for hyponatremia, hypokalemia, hyperglycemia as well as FABRIZIO. Case discussed in detail with Dr. Vides who agrees this plan of care. Patient was accepted by Dr. Horan. - Lab Data Result diagrams: 05/14/19 21:35 05/14/19 21:35 Lab Results 05/14/19 05/14/19 05/14/19 Range/Units 21:35 21:35 21:35 WBC 9.5 (3.8-10.6) k/uL RBC 6.18 H (4.30-5.90) m/uL Hgb 16.8 (13.0-17.5) gm/dL Hct 49.7 (39.0-53.0) % MCV 80.4 (80.0-100.0) fL MCH 27.1 (25.0-35.0) pg MCHC 33.8 (31.0-37.0) g/dL RDW 11.6 (11.5-15.5) % Plt Count 389 (150-450) k/uL Neutrophils % 58 % Lymphocytes % 26 % Monocytes % 9 % Eosinophils % 1 % Basophils % 4 % Neutrophils # 5.5 (1.3-7.7) k/uL Lymphocytes # 2.5 (1.0-4.8) k/uL Monocytes # 0.8 (0-1.0) k/uL Eosinophils # 0.1 (0-0.7) k/uL Basophils # 0.3 H (0-0.2) k/uL Sodium 131 L (137-145) mmol/L Potassium 3.2 L (3.5-5.1) mmol/L Chloride 79 L (98-107) mmol/L Carbon Dioxide 39 H (22-30) mmol/L Anion Gap 13 mmol/L BUN 48 H (9-20) mg/dL Creatinine 1.91 H (0.66-1.25) mg/dL Est GFR (CKD-EPI)AfAm 51 (>60 ml/min/1.73 sqM) Est GFR (CKD-EPI)NonAf 44 (>60 ml/min/1.73 sqM) Glucose 361 H (74-99) mg/dL POC Glucose (mg/dL) 343 H (75-99) mg/dL POC Glu Operating Room Scheduler ID Elodia Clements Calcium 10.5 H (8.4-10.2) mg/dL Total Bilirubin 1.3 (0.2-1.3) mg/dL AST 25 (17-59) U/L ALT 22 (4-49) U/L Alkaline Phosphatase 116 (38-126) U/L Total Protein 8.3 H (6.3-8.2) g/dL Albumin 5.0 (3.5-5.0) g/dL Amylase 95 (30-110) U/L Lipase 360 H (23-300) U/L Urine Color Urine Appearance (Clear) Urine pH (5.0-8.0) Ur Specific [place] (1.001-1.035) Urine Protein (Negative) Urine Glucose (UA) (Negative) Urine Ketones (Negative) Urine Blood (Negative) Urine Nitrite (Negative) Urine Bilirubin (Negative) Urine Urobilinogen (<2.0) mg/dL Ur Leukocyte Esterase (Negative) Urine RBC (0-5) /hpf Urine WBC (0-5) /hpf Ur Squamous Epith Cells (0-4) /hpf Hyaline Casts (0-2) /lpf Urine Mucus (None) /hpf Acetone, Qual Negative (Negative) 05/14/19 Range/Units 22:40 WBC (3.8-10.6) k/uL RBC (4.30-5.90) m/uL Hgb (13.0-17.5) gm/dL Hct (39.0-53.0) % MCV (80.0-100.0) fL MCH (25.0-35.0) pg MCHC (31.0-37.0) g/dL RDW (11.5-15.5) % Plt Count (150-450) k/uL Neutrophils % % Lymphocytes % % Monocytes % % Eosinophils % % Basophils % % Neutrophils # (1.3-7.7) k/uL Lymphocytes # (1.0-4.8) k/uL Monocytes # (0-1.0) k/uL Eosinophils # (0-0.7) k/uL Basophils # (0-0.2) k/uL Sodium (137-145) mmol/L Potassium (3.5-5.1) mmol/L Chloride (98-107) mmol/L Carbon Dioxide (22-30) mmol/L Anion Gap mmol/L BUN (9-20) mg/dL Creatinine (0.66-1.25) mg/dL Est GFR (CKD-EPI)AfAm (>60 ml/min/1.73 sqM) Est GFR (CKD-EPI)NonAf (>60 ml/min/1.73 sqM) Glucose (74-99) mg/dL POC Glucose (mg/dL) (75-99) mg/dL POC Glu Operating Room Scheduler ID Calcium (8.4-10.2) mg/dL Total Bilirubin (0.2-1.3) mg/dL AST (17-59) U/L ALT (4-49) U/L Alkaline Phosphatase (38-126) U/L Total Protein (6.3-8.2) g/dL Albumin (3.5-5.0) g/dL Amylase (30-110) U/L Lipase (23-300) U/L Urine Color Yellow Urine Appearance Clear (Clear) Urine pH 6.5 (5.0-8.0) Ur Specific [place] 1.021 (1.001-1.035) Urine Protein 2+ H (Negative) Urine Glucose (UA) 4+ H (Negative) Urine Ketones Negative (Negative) Urine Blood Moderate H (Negative) Urine Nitrite Negative (Negative) Urine Bilirubin Negative (Negative) Urine Urobilinogen <2.0 (<2.0) mg/dL Ur Leukocyte Esterase Negative (Negative) Urine RBC 8 H (0-5) /hpf Urine WBC 4 (0-5) /hpf Ur Squamous Epith Cells <1 (0-4) /hpf Hyaline Casts 3 H (0-2) /lpf Urine Mucus Rare H (None) /hpf Acetone, Qual (Negative) Disposition Clinical Impression: Hypokalemia, Hyponatremia, Hyperglycemia, Insulin dependent diabetes mellitus, Nausea & vomiting Disposition: ADMITTED IP TO THIS [facility] Condition: Stable Is patient prescribed a controlled substance at d/c from ED?: No Decision Date: 05/14/19 Decision Time: 23:19
[2019-05-14] MEDS ORDERED: SODIUM CHLORIDE 0.9% 1,000 ML IV ONE (23:08)
[2019-05-14] MEDS ORDERED: ONDANSETRON 4 MG/2 ML VIAL IVP PRN (23:09)
[2019-05-14] MEDS ORDERED: ACETAMINOPHEN TAB 325 MG TAB PO PRN (23:09)
[2019-05-14] MEDS ORDERED: NALOXONE 0.4 MG/ML 1 ML VIAL IV PRN (23:09)
[2019-05-14] MEDS ORDERED: HYDROmorphone 0.5 MG/0.5 ML SYRINGE IVP PRN (23:09)
[2019-05-15] MEDS: POTASSIUM CHLORIDE 10 MEQ in WATER FOR INJECTION 1 100ML.BAG IVPB SCH ×4 (00:09→03:22)
[2019-05-15 01:16] LABS: Glucose,Whole Blood 237 mg/dL (75-99)
[2019-05-15] MEDS: 0.9% NACL WITH KCL 20 MEQ/L 1,000 ML IV SCH ×3 (04:58→21:39)
[2019-05-15 07:36] LABS: Glucose,Whole Blood 208 mg/dL (75-99)
[2019-05-15] MEDS: INSULIN ASPART (NovoLOG) 100 UNIT/ML VIAL SQ SCH ×4 (08:26→21:34)
[2019-05-15] MEDS ORDERED: PANTOPRAZOLE 40 MG/10 ML VIAL IV SCH (09:00)
[2019-05-15 11:47] LABS: Basophils # (A) 0.1 k/uL (0-0.2); Basophils % (A) 2 %; Eosinophils # (A) 0.1 k/uL (0-0.7); Eosinophils % (A) 1 %; HCT 41.9 % (39.0-53.0); Lymphocytes # (A) 2.1 k/uL (1.0-4.8); Lymphocytes % (A) 31 %; MCH 26.9 pg (25.0-35.0); MCHC 32.5 g/dL (31.0-37.0); MCV 82.7 fL (80.0-100.0); Mean Platelet Volume 7.1; Monocytes # (A) 0.6 k/uL (0-1.0); Monocytes % (A) 9 %; Neutrophils # (A) 3.9 k/uL (1.3-7.7); Neutrophils % (A) 56 %; Platelet Count 333 k/uL (150-450); RBC 5.06 m/uL (4.30-5.90); RDW 11.8 % (11.5-15.5)
[2019-05-15 11:48] LABS: Glucose,Whole Blood 112 mg/dL (75-99)
[2019-05-15 11:48] LABS: HGB 13.6 gm/dL (13.0-17.5)
[2019-05-15 11:58] LABS: Albumin 3.8 g/dL (3.5-5.0); Calcium 9.2 mg/dL (8.4-10.2); Magnesium 2.1 mg/dL (1.6-2.3); Potassium 3.7 mmol/L (3.5-5.1); Total Protein 6.2 g/dL (6.3-8.2)
[2019-05-15 17:03] LABS: Glucose,Whole Blood 130 mg/dL (75-99)
[2019-05-15 20:39] LABS: Glucose,Whole Blood 146 mg/dL (75-99)
--- NOTE | 2019-05-15 21:32 | P.HPIM ---
History of Present Illness H&P Date: 05/15/19 Chief Complaint: abdominal pain patient is a 32-year-old male with a known history ofasthma, diabetes type 1and bilateral peripheral neuropathy,marijuana use an almost daily basiscame to ER with the complaints of intractable nausea vomitinginal pain for the past 3-4 days. Patient says that he has been constantly vomiting and not eating at all for the past 3 days. Patient felt iny weak and not able to eat or drink much. Patient took his blood sugar at home which was in 400s. Patient did himself 20 units of insulin. Patient says that she did have bowel movement with dark stools about 3 days ago. Since then she did not have any bowel movement and not eating. Denied any complaints of fever or chills. Patient does haveleft upper quadrant abdominal pain. Denied any history of previous endoscopy. Patient was tachycardic on admission. Blood sugar was 343 Elevated BUN and creatinine level. Review of Systems Constitutional: Patient denies any fever or chills . generalized weakness and malaise.. Abdomen:ppatient does have intractable nausea vomiting and bdominal pain.. Cardiovascular: Patient denies any chest pain or short of breath no palpitations. Respiratory: patient denied any cough is from production. No shortness of breath Neurologic: Patient denied any numbness or tingling headache. Musculoskeletal: Patient denies any complaints of joint swelling or deformity. Skin: Negative Psychiatric: Negative Endocrine: No heat or cold intolerance. No recent weight gain. Genitourinary: No dysuria or hematuria. All other 14 point ROS negative except the above Past Medical History Past Medical History: Asthma, Diabetes Mellitus Additional Past Medical History / Comment(s): IDDM type I, neuropathy bilateral feet, bronchitis History of Any Multi-Drug Resistant Organisms: None Reported Past Surgical History: No Surgical Hx Reported Additional Past Surgical History / Comment(s): Glass removed from head Past Anesthesia/Blood Transfusion Reactions: No Reported Reaction Past Psychological History: No Psychological Hx Reported Additional Psychological History / Comment(s): Pt resides alone. He is independent. He states he ran out of blood glucose monitoring strips and has n ot been able to check blood sugars lately. He would like a new machine/supplies. Smoking Status: Former smoker Past Alcohol Use History: None Reported Past Drug Use History: Marijuana Additional Drug Use History / Comment(s): Pt states he normally smokes 5-6 joints a day but has not smoked any in 3 days. - Past Family History Father Family Medical History: Diabetes Mellitus Additional Family Medical History / Comment(s): Diabetes runs in father's side of family Mother Family Medical History: Hypertension Medications and Allergies Home Medications Medication Instructions Recorded Confirmed Type Insulin Glargine,Hum.rec.anlog 10 unit SQ BID 10/19/18 05/14/19 History [Basaglar Mateo U-100] Allergies Allergy/AdvReac Type Severity Reaction Status Date / Time latex Allergy Rash/Hives Verified 05/14/19 23:51 Physical Exam Vitals: Vital Signs Temp Pulse Resp BP Pulse Ox 05/15/19 05:04 98.2 F 90 18 139/80 97 05/14/19 23:13 98.8 F 89 18 135/93 95 05/14/19 21:04 97.8 F 117 H 18 133/84 98 Intake and Output 05/14/19 05/15/19 05/15/19 22:59 06:59 14:59 Other: Weight 68.039 kg 68.039 kg PHYSICAL EXAMINATION: Patient is lying in the bed comfortably, no acute distress, awake alert and oriented.. HEENT: Normocephalic. Neck is supple. Pupils reactive. Nostrils clear. Oral cavity is moist. Ears reveal no drainage. Neck reveals no JVD, carotid bruits, or thyromegaly. CHEST EXAMINATION: Trachea is central. Symmetrical expansion. Lung vazquez clear to auscultation and percussion. CARDIAC: Normal S1, S2 with no gallops. No murmurs ABDOMEN: Soft. left upper quadranttenderness. No guarding no rigidiBowel sounds normal. No organomegaly. No abdominal bruits. Extremities: reveal no edema. No clubbing or cyanosis Neurologically awake, alert, oriented x3 with well-coordinated movements. No focal deficits noted Skin: No rash or skin lesions. Psychiatric: Coperative. Nonsuicidal. Anxious. Musculoskeletal: No joint swelling or deformity. Normal range of motion. Results CBC & Chem 7: 05/15/19 09:51 05/15/19 09:51 Labs: Abnormal Lab Results - Last 24 Hours (Table) 05/14/19 05/14/19 05/14/19 Range/Units 21:35 21:35 21:35 RBC 6.18 H (4.30-5.90) m/uL Basophils # 0.3 H (0-0.2) k/uL Sodium 131 L (137-145) mmol/L Potassium 3.2 L (3.5-5.1) mmol/L Chloride 79 L (98-107) mmol/L Carbon Dioxide 39 H (22-30) mmol/L BUN 48 H (9-20) mg/dL Creatinine 1.91 H (0.66-1.25) mg/dL Glucose 361 H (74-99) mg/dL POC Glucose (mg/dL) 343 H (75-99) mg/dL Calcium 10.5 H (8.4-10.2) mg/dL Total Protein 8.3 H (6.3-8.2) g/dL Lipase 360 H (23-300) U/L Urine Protein (Negative) Urine Glucose (UA) (Negative) Urine Blood (Negative) Urine RBC (0-5) /hpf Hyaline Casts (0-2) /lpf Urine Mucus (None) /hpf 05/14/19 05/15/19 05/15/19 Range/Units 22:40 01:14 07:34 RBC (4.30-5.90) m/uL Basophils # (0-0.2) k/uL Sodium (137-145) mmol/L Potassium (3.5-5.1) mmol/L Chloride (98-107) mmol/L Carbon Dioxide (22-30) mmol/L BUN (9-20) mg/dL Creatinine (0.66-1.25) mg/dL Glucose (74-99) mg/dL POC Glucose (mg/dL) 237 H 208 H (75-99) mg/dL Calcium (8.4-10.2) mg/dL Total Protein (6.3-8.2) g/dL Lipase (23-300) U/L Urine Protein 2+ H (Negative) Urine Glucose (UA) 4+ H (Negative) Urine Blood Moderate H (Negative) Urine RBC 8 H (0-5) /hpf Hyaline Casts 3 H (0-2) /lpf Urine Mucus Rare H (None) /hpf 05/15/19 05/15/19 Range/Units 09:51 11:46 RBC (4.30-5.90) m/uL Basophils # (0-0.2) k/uL Sodium 135 L (137-145) mmol/L Potassium (3.5-5.1) mmol/L Chloride 94 L (98-107) mmol/L Carbon Dioxide 34 H (22-30) mmol/L BUN 30 H (9-20) mg/dL Creatinine 1.59 H (0.66-1.25) mg/dL Glucose 166 H (74-99) mg/dL POC Glucose (mg/dL) 112 H (75-99) mg/dL Calcium (8.4-10.2) mg/dL Total Protein 6.2 L (6.3-8.2) g/dL Lipase (23-300) U/L Urine Protein (Negative) Urine Glucose (UA) (Negative) Urine Blood (Negative) Urine RBC (0-5) /hpf Hyaline Casts (0-2) /lpf Urine Mucus (None) /hpf Thrombosis Risk Factor Assmnt - DVT/VTE Prophylaxis DVT/VTE Prophylaxis: Pharmacologic Prophylaxis ordered Assessment and Plan Assessment: intractable nausea and vomiting and abdominal pain Hyperglycemiawith uncontrolled diabetes type 1 hypovolemic hyponatremia Acute kidney ijury most likely prenal Mild acute pancreatitis with slightly elevated lipase level daily marijuana use. dVT prophylaxis with SCDs Asthma stable Patient is full code Plan: Patient will be continued onIV hydration and insulin sliding scaleand also started back on home insulin regmen. Continue with PPIIV twice a day and follow hemoglobinlevel. ConsiderGI eval uation if the patient's symptoms does not resolve in the next 24 hours.Follow up closely and further recom based on the clinical course. Time with Patient: Greater than 30
[2019-05-15] MEDS: PANTOPRAZOLE 40 MG/10 ML VIAL IV SCH (21:33)
[2019-05-15] MEDS: INSULIN DETEMIR (LEVEMIR) 100 UNIT/ML SYR SQ SCH (21:34)
[2019-05-16] MEDS: 0.9% NACL WITH KCL 20 MEQ/L 1,000 ML IV SCH ×3 (05:35→21:24)
[2019-05-16 07:01] LABS: Glucose,Whole Blood 120 mg/dL (75-99)
[2019-05-16] MEDS: INSULIN ASPART (NovoLOG) 100 UNIT/ML VIAL SQ SCH ×4 (07:11→21:23)
[2019-05-16] MEDS: PANTOPRAZOLE 40 MG/10 ML VIAL IV SCH ×2 (07:14→21:19)
[2019-05-16] MEDS: INSULIN DETEMIR (LEVEMIR) 100 UNIT/ML SYR SQ SCH ×2 (07:16→21:24)
[2019-05-16 07:54] LABS: Calcium 9.7 mg/dL (8.4-10.2); Potassium 3.6 mmol/L (3.5-5.1)
[2019-05-16 08:24] LABS: Basophils # (A) 0.1 k/uL (0-0.2); Basophils % (A) 1 %; Eosinophils # (A) 0.1 k/uL (0-0.7); Eosinophils % (A) 2 %; HCT 39.3 % (39.0-53.0); HGB 12.9 gm/dL (13.0-17.5); Lymphocytes # (A) 2.8 k/uL (1.0-4.8); Lymphocytes % (A) 40 %; MCH 27.3 pg (25.0-35.0); MCHC 32.7 g/dL (31.0-37.0); MCV 83.3 fL (80.0-100.0); Mean Platelet Volume 7.1; Monocytes # (A) 0.6 k/uL (0-1.0); Monocytes % (A) 8 %; Neutrophils # (A) 3.1 k/uL (1.3-7.7); Neutrophils % (A) 45 %; Platelet Count 306 k/uL (150-450); RBC 4.72 m/uL (4.30-5.90); RDW 11.9 % (11.5-15.5)
[2019-05-16 11:44] LABS: Glucose,Whole Blood 142 mg/dL (75-99)
[2019-05-16 16:59] LABS: Glucose,Whole Blood 137 mg/dL (75-99)
[2019-05-16 20:54] LABS: Glucose,Whole Blood 151 mg/dL (75-99)
[2019-05-16 21:34] VITALS: PULSE 74
[2019-05-17 05:07] VITALS: BP 120/78; RESP 16; TEMP 98.5
[2019-05-17] MEDS: 0.9% NACL WITH KCL 20 MEQ/L 1,000 ML IV SCH (06:52)
[2019-05-17 06:57] LABS: Glucose,Whole Blood 84 mg/dL (75-99)
[2019-05-17] MEDS: INSULIN DETEMIR (LEVEMIR) 100 UNIT/ML SYR SQ SCH (07:13)
[2019-05-17] MEDS: INSULIN ASPART (NovoLOG) 100 UNIT/ML VIAL SQ SCH ×2 (07:13→12:05)
[2019-05-17] MEDS: PANTOPRAZOLE 40 MG/10 ML VIAL IV SCH (07:18)
[2019-05-17 09:42] LABS: Basophils % (A) 0 %; Eosinophils # (A) 0.1 k/uL (0-0.7); Eosinophils % (A) 2 %; HCT 37.4 % (39.0-53.0); HGB 12.3 gm/dL (13.0-17.5); Lymphocytes # (A) 1.9 k/uL (1.0-4.8); Lymphocytes % (A) 29 %; MCH 27.4 pg (25.0-35.0); MCHC 32.8 g/dL (31.0-37.0); MCV 83.6 fL (80.0-100.0); Mean Platelet Volume 7.3; Monocytes # (A) 0.4 k/uL (0-1.0); Monocytes % (A) 6 %; Neutrophils # (A) 3.8 k/uL (1.3-7.7); Neutrophils % (A) 60 %; Platelet Count 297 k/uL (150-450); RBC 4.48 m/uL (4.30-5.90); RDW 11.8 % (11.5-15.5); WBC 6.4 k/uL (3.8-10.6)
[2019-05-17 09:58] LABS: Calcium 9.4 mg/dL (8.4-10.2)
[2019-05-17 11:36] LABS: Glucose,Whole Blood 261 mg/dL (75-99)
--- NOTE | 2019-06-06 21:38 | P.PN ---
Subjective Progress Note Date: 05/16/19 Principal diagnosis: Intractable nausea vomiting and abdominal pain. patient is a 32-year-old male with a known history ofasthma, diabetes type 1and bilateral peripheral neuropathy,marijuana use an almost daily basiscame to ER with the complaints of intractable nausea vomitinginal pain for the past 3-4 days. Patient says that he has been constantly vomiting and not eating at all for the past 3 days. Patient felt iny weak and not able to eat or drink much. Patient took his blood sugar at home which was in 400s. Patient did himself 20 units of insulin. Patient says that she did have bowel movement with dark stools about 3 days ago. Since then she did not have any bowel movement and not eating. Denied any complaints of fever or chills. Patient does haveleft upper quadrant abdominal pain. Denied any history of previous endoscopy. Patient was tachycardic on admission. Blood sugar was 343 Elevated BUN and creatinine level. 05 16 2019 Patient is still nauseated. Abdominal pain and nausea improving. Will start on liquid diet and advance as tolerated. Blood sugar is better controlled. No complaints of fever or chills. No chest pain or shortness of breath. No cough or sputum production. Current medications reviewed. Objective - Vital Signs Vital signs: Vital Signs Temp 98.7 F 05/16/19 05:34 Pulse 80 05/16/19 05:34 Resp 16 05/16/19 05:34 BP 129/82 05/16/19 05:34 Pulse Ox 99 05/16/19 05:34 Intake & Output 05/15/19 05/16/19 05/16/19 18:59 06:59 18:59 Intake Total 1400 Balance 1400 Weight 68.039 kg Intake: IV 1400 0.9% NaCl with KCl 20 Meq 1000 /l 1,000 ml @ 125 mls/hr IV .Q8H ROWAN Rx#:[id number] Potassium Chloride 10 meq 400 In Water For Injection 1 100ml.bag @ 100 mls/hr IVPB Q1HR ROWAN Rx#: [id number] Other: # Voids 2 # Bowel Movements 0 - Exam PHYSICAL EXAMINATION: Patient is lying in the bed comfortably, no acute distress, awake alert and oriented.. HEENT: Normocephalic. Neck is supple. Pupils reactive. Nostrils clear. Oral cavity is moist. Ears reveal no drainage. Neck reveals no JVD, carotid bruits, or thyromegaly. CHEST EXAMINATION: Trachea is central. Symmetrical expansion. Lung vazquez clear to auscultation and percussion. CARDIAC: Normal S1, S2 with no gallops. No murmurs ABDOMEN: Soft. left upper quadranttenderness. No guarding no rigidiBowel sounds normal. No organomegaly. No abdominal bruits. Extremities: reveal no edema. No clubbing or cyanosis Neurologically awake, alert, oriented x3 with well-coordinated movements. No focal deficits noted Skin: No rash or skin lesions. Psychiatric: Coperative. Nonsuicidal. Anxious. Musculoskeletal: No joint swelling or deformity. Normal range of motion. - Labs CBC & Chem 7: 05/17/19 09:19 05/17/19 09:19 Labs: Abnormal Lab Results - Last 24 Hours (Table) 05/15/19 05/15/19 05/16/19 Range/Units 17:01 20:38 06:59 Hgb (13.0-17.5) gm/dL Carbon Dioxide (22-30) mmol/L Creatinine (0.66-1.25) mg/dL POC Glucose (mg/dL) 130 H 146 H 120 H (75-99) mg/dL 05/16/19 05/16/19 05/16/19 Range/Units 07:18 07:18 11:43 Hgb 12.9 L (13.0-17.5) gm/dL Carbon Dioxide 31 H (22-30) mmol/L Creatinine 1.37 H (0.66-1.25) mg/dL POC Glucose (mg/dL) 142 H (75-99) mg/dL Assessment and Plan Assessment: intractable nausea and vomiting and abdominal pain. Possible acute g astroenteritis. Improving now. Hyperglycemiawith uncontrolled diabetes type 1 hypovolemic hyponatremia Acute kidney ijury most likely prenal Mild acute pancreatitis with slightly elevated lipase level daily marijuana use. dVT prophylaxis with SCDs Asthma stable Patient is full code Plan: Patient will be continued onIV hydration and insulin sliding scale and also started back on home insulin regmen. Continue with PPIIV twice a day and follow hemoglobinlevel. Follow up closely and further recom based on the clinical course. Time with Patient: Greater than 30
--- NOTE | 2019-06-06 21:40 | P.DS ---
Providers Date of admission: 05/14/19 23:11 Expected date of discharge: 05/17/19 Attending physician: Gino Horan Primary care physician: Lacy Rodarte [facility] Course: Discharge diagnosis intractable nausea and vomiting and abdominal pain. Possible acute gastroenteritis. Improved now. Hyperglycemiawith uncontrolled diabetes type 1 hypovolemic hyponatremia Acute kidney ijury most likely prenal Mild acute pancreatitis with slightly elevated lipase level daily marijuana use. dVT prophylaxis with SCDs Asthma stable Patient is full code Hospital course patient is a 32-year-old male with a known history ofasthma, diabetes type 1and bilateral peripheral neuropathy,marijuana use an almost daily basiscame to ER with the complaints of intractable nausea vomitinginal pain for the past 3-4 days. Patient says that he has been constantly vomiting and not eating at all for the past 3 days. Patient felt iny weak and not able to eat or drink much. Patient took his blood sugar at home which was in 400s. Patient did himself 20 units of insulin. Patient says that she did have bowel movement with dark stools about 3 days ago. Since then she did not have any bowel movement and not eating. Denied any complaints of fever or chills. Patient does haveleft upper quadrant abdominal pain. Denied any history of previous endoscopy. Patient was tachycardic on admission. Blood sugar was 343 Elevated BUN and creatinine level. 05 16 2019 Patient is still nauseated. Abdominal pain and nausea improving. Will start on liquid diet and advance as tolerated. Blood sugar is better controlled. No complaints of fever or chills. No chest pain or shortness of breath. No cough or sputum production. 05/17/2019 Patient did improve symptomatically. Tolerating oral diet. No complaints of chest pain or shortness of breath. No nausea vomiting or abdominal pain today. Patient is being discharged home today. Patient was recommended to follow up with GI as an outpatient. PHYSICAL EXAMINATION: Patient is lying in the bed comfortably, no acute distress, awake alert and oriented.. HEENT: Normocephalic. Neck is supple. Pupils reactive. Nostrils clear. Oral cavity is moist. Ears reveal no drainage. Neck reveals no JVD, carotid bruits, or thyromegaly. CHEST EXAMINATION: Trachea is central. Symmetrical expansion. Lung vazquez clear to auscultation and percussion. CARDIAC: Normal S1, S2 with no gallops. No murmurs ABDOMEN: Soft. Bowel sounds normal. No organomegaly. No abdominal bruits. Extremities: reveal no edema. No clubbing or cyanosis Neurologically awake, alert, oriented x3 with well-coordinated movements. No focal deficits noted Skin: No rash or skin lesions. Psychiatric: Coperative. Nonsuicidal Musculoskeletal: No joint swelling or deformity. Normal range of motion. Discharge vitals reviewed.. Patient Condition at Discharge: Stable Plan - Discharge Summary Discharge Rx Participant: Yes New Discharge Prescriptions: New Pantoprazole Sodium [Protonix] 40 mg PO AC-BRKFST #30 tablet. Continue Insulin Glargine,Hum.rec.anlog [Basaglar Kwikpen U-100] 10 unit SQ BID Discharge Medication List Insulin Glargine,Hum.rec.anlog [Basaglar Kwikpen U-100] 10 unit SQ BID 10/19/18 [History] Pantoprazole Sodium [Protonix] 40 mg PO AC-BRKFST #30 tablet. 05/17/19 [Rx] Follow up Appointment(s)/Referral(s): Lacy Rodarte MD [Primary Care Provider] - 05/20/19 10:30 am (pt has to go to appointment to be able to get his insulin supplies) Luda Fry MD [STAFF PHYSICIAN] - As Needed (It is recommended to get a referral from your primary doctor in order to see a Card Room Manager outpatient. ) Patient Instructions/Handouts: Acute Nausea and Vomiting (DC) Discharge Disposition: HOME SELF-CARE
== END 2019-05-17 12:14 | disposition home or self-care (01) ==
LOC: EC 21:03 → 6NMEDSUR 23:11
PROVIDERS: ADMIT Hospitalist; ATTEND Hospitalist
DX: E87.1 Hypo-osmolality and hyponatremia (principal); N17.9 Acute kidney failure, unspecified; E87.6 Hypokalemia; K85.90 Acute pancreatitis without necrosis or infection, unspecified; E86.1 Hypovolemia; R11.2 Nausea with vomiting, unspecified; R10.9 Unspecified abdominal pain; E10.42 Type 1 diabetes mellitus with diabetic polyneuropathy; E10.65 Type 1 diabetes mellitus with hyperglycemia; J45.909 Unspecified asthma, uncomplicated; Z79.4 Long term (current) use of insulin; Z82.49 Family history of ischemic heart disease and other diseases of the circulatory system; Z83.3 Family history of diabetes mellitus; Z87.891 Personal history of nicotine dependence; Z91.040 Latex allergy status
CPT/HCPCS: 96376 ×4; 96366 ×4; 96361; 96365; 96375; 99285; 36415; 93005; 80053 ×2; 80048 ×2; 82150; 82009; 83690; 83735; 85025 ×4; 81001; G0378 ×4; J2405; J3480; C9113 ×4

== ENCOUNTER 2019-11-25 09:30 | Observation (INO) | payer OTHER ==
[2019-11-25] MEDS ORDERED: SODIUM CHLORIDE 0.9% 1,000 ML IV STA (09:59)
[2019-11-25] MEDS ORDERED: ONDANSETRON 4 MG/2 ML VIAL IVP STA (09:59)
[2019-11-25] MEDS ORDERED: THIAMINE 100 MG/ML 2 ML VIAL IM STA (10:00)
[2019-11-25] MEDS ORDERED: PANTOPRAZOLE 40 MG/10 ML VIAL IVP STA (10:01)
--- NOTE | 2019-11-25 10:08 | ED ---
General Adult HPI - General Chief complaint: Nausea/Vomiting/Diarrhea Stated complaint: Vomiting Time Seen by Provider: 11/25/19 09:45 Source: patient, RN notes reviewed, old records reviewed Mode of arrival: wheelchair Limitations: no limitations - History of Present Illness Initial comments: 34-year-old male presents for shortness today after heavy drinking on in which he drinks approximately a fifth of alcohol and then a pint of Cognac. Patient reports that he does not typically drink heavily but is a special occasion. Patient reports that he has not been able to stop vomiting since Monday afternoon. Patient reports that he has no localized abdominal pain. He reports that he is unable to keep water or any food down. He states that he has had no changes in urination or bowel habits. Patient reports that he's had no bloody emesis. - Related Data Home Medications Medication Instructions Recorded Confirmed Insulin Glargine,Hum.rec.anlog 10 unit SQ BID 10/19/18 11/25/19 [Basaglar Kwikpen U-100] Allergies Allergy/AdvReac Type Severity Reaction Status Date / Time latex Allergy Rash/Hives Verified 11/25/19 10:37 Review of Systems ROS Statement: Those systems with pertinent positive or pertinent negative responses have been documented in the HPI. ROS Other: All systems not noted in ROS Statement are negative. Past Medical History Past Medical History: Asthma, Diabetes Mellitus Additional Past Medical History / Comment(s): IDDM type I, neuropathy bilateral feet, bronchitis History of Any Multi-Drug Resistant Organisms: None Reported Past Surgical History: No Surgical Hx Reported Additional Past Surgical History / Comment(s): Glass removed from head Past Anesthesia/Blood Transfusion Reactions: No Reported Reaction Past Psychological History: No Psychological Hx Reported Smoking Status: Former smoker Past Alcohol Use History: Occasional Past Drug Use History: Marijuana - Past Family History Father Family Medical History: Diabetes Mellitus Additional Family Medical History / Comment(s): Diabetes runs in father's side of family Mother Family Medical History: Hypertension General Exam - General Exam Comments Initial Comments: Alert and oriented 34-year-old male. Limitations: no limitations General appearance: alert, in no apparent distress Head exam: Present: atraumatic, normocephalic, normal inspection Eye exam: Present: normal appearance, PERRL, EOMI. Absent: scleral icterus, conjunctival injection, periorbital swelling ENT exam: Present: normal exam, mucous membranes moist Neck exam: Present: normal inspection. Absent: tenderness, meningismus, lymphadenopathy Respiratory exam: Present: normal lung sounds bilaterally. Absent: respiratory distress, wheezes, rales, rhonchi, stridor Cardiovascular Exam: Present: regular rate, normal rhythm, normal heart sounds. Absent: systolic murmur, diastolic murmur, rubs, gallop, clicks GI/Abdominal exam: Present: soft, normal bowel sounds. Absent: distended, tenderness, guarding, rebound, rigid Extremities exam: Present: normal inspection, full ROM, normal capillary refill. Absent: tenderness, pedal edema, joint swelling, calf tenderness Back exam: Present: normal inspection Neurological exam: Present: alert, oriented X3, CN II-XII intact Psychiatric exam: Present: normal affect, normal mood Skin exam: Present: warm, dry, intact, normal color. Absent: rash Course Vital Signs 11/25/19 09:32 Temperature 98.1 F Pulse Rate 110 H Respiratory 18 Rate Blood Pressure 129/92 O2 Sat by Pulse 100 Oximetry Medical Decision Making - Medical Decision Making Patient is a 37-year-old male presents for his pharmacist today with heavy drinking on evening. Patient reports that since Monday he's had severe vomiting unable to hold medications down. Patient is given a 2 L bolus. He was given Protonix and Zofran. Reevaluation is resting in bed. He reports he feels somewhat better. Labs show significant dehydration with a KI. Patient denies any abdominal pain. Patient will be admitted at this time for IV fluids and close monitoring repeat CMP. - Lab Data Result diagrams: 11/25/19 10:31 11/25/19 10:31 Lab Results 11/25/19 11/25/19 11/25/19 Range/Units 10:31 10:31 10:31 WBC 10.9 H (3.8-10.6) k/uL RBC 6.27 H (4.30-5.90) m/uL Hgb 16.4 (13.0-17.5) gm/dL Hct 51.5 (39.0-53.0) % MCV 82.1 (80.0-100.0) fL MCH 26.2 (25.0-35.0) pg MCHC 31.9 (31.0-37.0) g/dL RDW 13.0 (11.5-15.5) % Plt Count 366 (150-450) k/uL Neutrophils % 77 % Lymphocytes % 14 % Monocytes % 7 % Eosinophils % 0 % Basophils % 0 % Neutrophils # 8.5 H (1.3-7.7) k/uL Lymphocytes # 1.5 (1.0-4.8) k/uL Monocytes # 0.7 (0-1.0) k/uL Eosinophils # 0.0 (0-0.7) k/uL Basophils # 0.0 (0-0.2) k/uL Sodium 136 L (137-145) mmol/L Potassium 3.3 L (3.5-5.1) mmol/L Chloride 83 L (98-107) mmol/L Carbon Dioxide 35 H (22-30) mmol/L Anion Gap 18 mmol/L BUN 56 H (9-20) mg/dL Creatinine 2.33 H (0.66-1.25) mg/dL Est GFR (CKD-EPI)AfAm 40 (>60 ml/min/1.73 sqM) Est GFR (CKD-EPI)NonAf 35 (>60 ml/min/1.73 sqM) Glucose 320 H (74-99) mg/dL Calcium 10.3 H (8.4-10.2) mg/dL Magnesium 2.0 (1.6-2.3) mg/dL Total Bilirubin 1.0 (0.2-1.3) mg/dL AST 34 (17-59) U/L ALT 35 (4-49) U/L Alkaline Phosphatase 121 (38-126) U/L Total Protein 9.2 H (6.3-8.2) g/dL Albumin 5.5 H (3.5-5.0) g/dL Amylase 90 (30-110) U/L Lipase 136 (23-300) U/L Urine Color Yellow Urine Appearance Clear (Clear) Urine pH 5.5 (5.0-8.0) Ur Specific [place] 1.026 (1.001-1.035) Urine Protein 3+ H (Negative) Urine Glucose (UA) Trace H (Negative) Urine Ketones Trace H (Negative) Urine Blood Moderate H (Negative) Urine Nitrite Negative (Negative) Urine Bilirubin Negative (Negative) Urine Urobilinogen <2.0 (<2.0) mg/dL Ur Leukocyte Esterase Negative (Negative) Urine RBC 9 H (0-5) /hpf Urine WBC 3 (0-5) /hpf Ur Squamous Epith Cells <1 (0-4) /hpf Hyaline Casts 10 H (0-2) /lpf Urine Mucus Rare H (None) /hpf Serum Alcohol <10 mg/dL - Radiology Data Radiology results: report reviewed Some scattered air-fluid levels throughout the colon reflect enteritis or ileus. Nonobstructive bowel gas pattern. No free air. Disposition Clinical Impression: Intractable nausea and vomiting, FABRIZIO (acute kidney injury) Disposition: ADMITTED IP TO THIS HOSP Condition: Stable Is patient prescribed a controlled substance at d/c from ED?: No Referrals: Lacy Rodarte MD [Primary Care Provider] - 1-2 days Time of Disposition: 12:30
[2019-11-25 11:20] LABS: Basophils % (A) 0 %; Eosinophils % (A) 0 %; HCT 51.5 % (39.0-53.0); HGB 16.4 gm/dL (13.0-17.5); Lymphocytes # (A) 1.5 k/uL (1.0-4.8); Lymphocytes % (A) 14 %; MCH 26.2 pg (25.0-35.0); MCHC 31.9 g/dL (31.0-37.0); MCV 82.1 fL (80.0-100.0); Mean Platelet Volume 7.1; Monocytes # (A) 0.7 k/uL (0-1.0); Monocytes % (A) 7 %; Neutrophils # (A) 8.5 k/uL (1.3-7.7); Neutrophils % (A) 77 %; Platelet Count 366 k/uL (150-450); RBC 6.27 m/uL (4.30-5.90); WBC 10.9 k/uL (3.8-10.6)
[2019-11-25 11:29] LABS: ALT 35 U/L (4-49); AST 34 U/L (17-59); African American GFR (CKD) 40 (>60 ml/min/1.73 sqM); Albumin 5.5 g/dL (3.5-5.0); Alcohol <10 mg/dL; Alkaline Phosphatase 121 U/L (38-126); Amylase 90 U/L (30-110); Anion Gap 18 mmol/L; Blood Urea Nitrogen 56 mg/dL (9-20); Calcium 10.3 mg/dL (8.4-10.2); Carbon Dioxide 35 mmol/L (22-30); Chloride 83 mmol/L (98-107); Glucose 320 mg/dL (74-99); Non-African American GFR(CKD) 35 (>60 ml/min/1.73 sqM); Potassium 3.3 mmol/L (3.5-5.1); Sodium 136 mmol/L (137-145); Total Protein 9.2 g/dL (6.3-8.2)
[2019-11-25 11:35] LABS: Appearance,Urine Clear (Clear); Bilirubin,Urine Negative (Negative); Blood,Urine Moderate (Negative); Color,Urine Yellow; Glucose,Urine (UA) Trace (Negative); Hyaline Casts,Urine 10 /lpf (0-2); Ketones,Urine Trace (Negative); Leukocyte Esterase,Urine Negative (Negative); Mucus,Urine Rare /hpf; Nitrite,Urine Negative (Negative); PH, Urine 5.5 (5.0-8.0); Protein,Urine 3+ (Negative); RBC,Urine 9 /hpf (0-5); Specific Gravity,Urine 1.026 (1.001-1.035); Squamous Epithelial Cell,Urine <1 /hpf (0-4); Urobilinogen,Urine <2.0 mg/dL (<2.0); WBC,Urine 3 /hpf (0-5)
--- NOTE | 2019-11-25 11:41 | XR ---
EXAMINATION TYPE: XR KUB DATE OF EXAM: 11/25/2019 Comparison: 10/28/2017 Clinical History: 34-year-old male pain Findings: Lung bases are clear. No evidence for free intraperitoneal air. No dilated small bowel. A few scattered air-fluid levels throughout. No significant stool burden. Impression: Some scattered air-fluid levels throughout colon reflect enteritis or ileus. Nonobstructive bowel gas pattern. No free air.
[2019-11-25] MEDS ORDERED: ONDANSETRON 4 MG/2 ML VIAL IVP PRN (12:30)
[2019-11-25] MEDS ORDERED: IBUPROFEN 400 MG TAB PO PRN (12:30)
[2019-11-25] MEDS ORDERED: KETOROLAC 30 MG/ML 1 ML VIAL IVP PRN (12:30)
[2019-11-25] MEDS ORDERED: ACETAMINOPHEN TAB 325 MG TAB PO PRN (12:30)
[2019-11-25] MEDS ORDERED: NALOXONE 0.4 MG/ML 1 ML VIAL IV PRN (12:30)
[2019-11-25] MEDS: SODIUM CHLORIDE 0.9% 1,000 ML IV SCH ×2 (12:34→23:09)
[2019-11-25] MEDS ORDERED: diphenhydrAMINE 50 MG/ML 1 ML VIAL IVP PRN (13:05)
[2019-11-25] MEDS ORDERED: METOCLOPRAMIDE 5 MG/ML 2 ML VIAL IVP STA (13:05)
--- NOTE | 2019-11-25 13:24 | P.HPIM ---
History of Present Illness This is a pleasant 34 years old -[place] male with past medical history of penicillin dependent diabetes mellitus type 1, diabetic neuropathy in him both feet, bronchitis/asthma. This patient of Dr. Stevens. Patient problems started by heavy alcohol drinking of fifth to 1 pint of liquor alcohol on night, however he denies taking every day. Next day he started throwing up all day and through the week it with decreased oral intake. Also patient felt a little dizzy surgery come to emergency room. He denies diarrhea, no abdominal pain, no chest pain or dyspnea. No fever He takes 10 units of long acting insulin the morning Patient is tachycardic at 110, rest of vitals are stable his saturating 100% on room air. The Amparo mildly elevated 10.9 K, hemoglobin and platelets normal. Potassium of 3.3, low sodium 136, creatinine elevated 2.3, baseline is 1.3- possibly up to 1.5 or 1.9. Urinalysis is concentrated sample with no strength evidence of infection. Serum alcohol less than 10. Any ongoing is closed at 18. Liver enzymes not elevated, amylase and lipase are normal. KUB: Nonobstructive bowel gas pattern, no free air with air-fluid levels throughout: Reflect enteritis or ileus In the emergency room patient received fluids, 1 L of normal saline, Zofran, thiamine and Protonix. Review of Systems CONSTITUTIONAL: No fever, no malaise, no fatigue. HEENT: No recent visual problems or hearing problems. Denied any sore throat. CARDIOVASCULAR: No orthopnea, PND, no palpitations, no syncope. PULMONARY: No shortness of breath, no cough, no hemoptysis. GASTROINTESTINAL: No diarrhea, no abdominal pain. Normoactive bowel sounds. NEUROLOGICAL: No headaches, no weakness, no numbness. HEMATOLOGICAL: Denies any bleeding or petechiae. GENITOURINARY: Denies any burning micturition, frequency, or urgency. MUSCULOSKELETAL/RHEUMATOLOGICAL: Denies any joint pain, swelling, or any muscle pain. ENDOCRINE: Denies any polyuria or polydipsia. Past Medical History Past Medical History: Asthma, Diabetes Mellitus Additional Past Medical History / Comment(s): IDDM type I, neuropathy bilateral feet, bronchitis History of Any Multi-Drug Resistant Organisms: None Reported Past Surgical History: No Surgical Hx Reported Additional Past Surgical History / Comment(s): Glass removed from head Past Anesthesia/Blood Transfusion Reactions: No Reported Reaction Past Psychological History: No Psychological Hx Reported Smoking Status: Former smoker Past Alcohol Use History: Occasional Past Drug Use History: Marijuana - Past Family History Father Family Medical History: Diabetes Mellitus Additional Family Medical History / Comment(s): Diabetes runs in father's side of family Mother Family Medical History: Hypertension Medications and Allergies Home Medications Medication Instructions Recorded Confirmed Type Insulin Glargine,Hum.rec.anlog 10 unit SQ BID 10/19/18 11/25/19 History [Basaglar Kwikpen U-100] Allergies Allergy/AdvReac Type Severity Reaction Status Date / Time latex Allergy Rash/Hives Verified 11/25/19 10:37 Physical Exam Vitals: Vital Signs Temp Pulse Resp BP Pulse Ox 11/25/19 09:32 98.1 F 110 H 18 129/92 100 Intake and Output 11/24/19 11/25/19 11/25/19 22:59 06:59 14:59 Other: Weight 72.575 kg GENERAL: The patient is alert and oriented x3, not in any acute distress. Well developed, well nourished. HEENT: Pupils are round and equally reacting to light. EOMI. No scleral icterus. No conjunctival pallor. Normocephalic, atraumatic. No pharyngeal erythema. No thyromegaly. CARDIOVASCULAR: S1 and S2 present. No murmurs, rubs, or gallops. PULMONARY: Chest is clear to auscultation, no wheezing or crackles. ABDOMEN: Soft, nontender, nondistended, normoactive bowel sounds. No palpable organomegaly. MUSCULOSKELETAL: No joint swelling or deformity. EXTREMITIES: No cyanosis, clubbing, or pedal edema. NEUROLOGICAL: Gross neurological examination did not reveal any focal deficits. SKIN: No rashes. No petechiae Results CBC & Chem 7: 11/25/19 10:31 11/25/19 10:31 Labs: Abnormal Lab Results - Last 24 Hours (Table) 11/25/19 11/25/19 11/25/19 Range/Units 10:31 10:31 10:31 WBC 10.9 H (3.8-10.6) k/uL RBC 6.27 H (4.30-5.90) m/uL Neutrophils # 8.5 H (1.3-7.7) k/uL Sodium 136 L (137-145) mmol/L Potassium 3.3 L (3.5-5.1) mmol/L Chloride 83 L (98-107) mmol/L Carbon Dioxide 35 H (22-30) mmol/L BUN 56 H (9-20) mg/dL Creatinine 2.33 H (0.66-1.25) mg/dL Glucose 320 H (74-99) mg/dL Calcium 10.3 H (8.4-10.2) mg/dL Total Protein 9.2 H (6.3-8.2) g/dL Albumin 5.5 H (3.5-5.0) g/dL Urine Protein 3+ H (Negative) Urine Glucose (UA) Trace H (Negative) Urine Ketones Trace H (Negative) Urine Blood Moderate H (Negative) Urine RBC 9 H (0-5) /hpf Hyaline Casts 10 H (0-2) /lpf Urine Mucus Rare H (None) /hpf Assessment and Plan Assessment: Acute gastroenteritis Acute kidney injury Hypo-volemia and dehydration Type 1 diabetes mellitus, insulin-dependent, with hyperglycemia Chronic kidney disease, stage II-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 Continue with IV hydration, follow-up vitals and labs. Encourage oral hydration Labs and medication were reviewed.. Continue same treatment. Continue with symptomatic treatment. Resume home medication. Monitor lytes and vitals. DVT and GI prophylaxis. Further recommendations of the clinical course of the patient DVT prophylaxis: Subcutaneous heparin GI Prophylaxis: Pepcid PT/OT: Pending Prognosis is guarded
[2019-11-25] MEDS: TRIMETHOBENZAMIDE 100 MG/ML 2 ML VIAL IM PRN ×2 (16:49→23:58)
[2019-11-25 22:46] LABS: Glucose,Whole Blood 260 mg/dL (75-99)
[2019-11-25] MEDS: HEPARIN SODIUM,PORCINE 5,000 UNIT/ML 1 ML VIAL SQ SCH (23:08)
[2019-11-26] MEDS ORDERED: INSULIN ASPART (NovoLOG) 100 UNIT/ML VIAL SQ ONE (00:15)
[2019-11-26 06:15] LABS: Glucose,Whole Blood 226 mg/dL (75-99)
[2019-11-26 08:16] LABS: Calcium 9.9 mg/dL (8.4-10.2); Magnesium 2.1 mg/dL (1.6-2.3); Potassium 3.6 mmol/L (3.5-5.1)
[2019-11-26] MEDS: INSULIN ASPART (NovoLOG) 100 UNIT/ML VIAL SQ SCH ×5 (08:19→21:16)
[2019-11-26] MEDS: HEPARIN SODIUM,PORCINE 5,000 UNIT/ML 1 ML VIAL SQ SCH ×2 (08:19→21:16)
[2019-11-26] MEDS ORDERED: PANTOPRAZOLE 40 MG/10 ML VIAL IV SCH (09:00)
--- NOTE | 2019-11-26 11:37 | P.PN ---
Subjective This is a pleasant 34 years old -[place] male with past medical history of penicillin dependent diabetes mellitus type 1, diabetic neuropathy in him both feet, bronchitis/asthma. This patient of Dr. Stevens. Patient problems started by heavy alcohol drinking of fifth to 1 pint of liquor alcohol on night, however he denies taking every day. Next day he started throwing up all day and through the week it with decreased oral intake. Also patient felt a little dizzy surgery come to emergency room. He denies diarrhea, no abdominal pain, no chest pain or dyspnea. No fever He takes 10 units of long acting insulin the morning Patient is tachycardic at 110, rest of vitals are stable his saturating 100% on room air. The Amparo mildly elevated 10.9 K, hemoglobin and platelets normal. Potassium of 3.3, low sodium 136, creatinine elevated 2.3, baseline is 1.3- possibly up to 1.5 or 1.9. Urinalysis is concentrated sample with no strength evidence of infection. Serum alcohol less than 10. Any ongoing is closed at 18. Liver enzymes not elevated, amylase and lipase are normal. KUB: Nonobstructive bowel gas pattern, no free air with air-fluid levels throughout: Reflect enteritis or ileus In the emergency room patient received fluids, 1 L of normal saline, Zofran, thiamine and Protonix. 11/26/2019 Patient is awake alert, his nausea vomiting stopped, he is tolerating diet. No abdominal pain and he is passing gas but did not have bowel movement yet. Vitas looks stable and creatinine is coming down but not back to normal. It's 1.97 this morning. sugars the high side and he is on sliding scale. We'll start him on Levemir 8 units in the morning first dose today. And keep sliding scale. we will keep the patient so he needs IV fluids Objective - Vital Signs Vital signs: Vital Signs Temp 98.5 F 11/26/19 08:00 Pulse 85 11/26/19 08:00 Resp 12 11/26/19 08:00 BP 128/86 11/26/19 08:00 Pulse Ox 96 11/26/19 08:00 Intake & Output 11/25/19 11/26/19 11/26/19 18:59 06:59 18:59 Intake Total 600 800 200 Balance 600 800 200 Weight 72.575 kg Intake: Oral 600 800 Other 200 Other: Voiding Method Toilet # Voids 1 1 - Exam GENERAL: The patient is alert and oriented x3, not in any acute distress. Well developed, well nourished. HEENT: Pupils are round and equally reacting to light. EOMI. No scleral icterus. No conjunctival pallor. Normocephalic, atraumatic. No pharyngeal erythema. No thyromegaly. CARDIOVASCULAR: S1 and S2 present. No murmurs, rubs, or gallops. PULMONARY: Chest is clear to auscultation, no wheezing or crackles. ABDOMEN: Soft, nontender, nondistended, normoactive bowel sounds. No palpable organomegaly. MUSCULOSKELETAL: No joint swelling or deformity. EXTREMITIES: No cyanosis, clubbing, or pedal edema. NEUROLOGICAL: Gross neurological examination did not reveal any focal deficits. SKIN: No rashes. no petechiae. - Labs CBC & Chem 7: 11/25/19 10:31 11/26/19 07:43 Labs: Abnormal Lab Results - Last 24 Hours (Table) 11/25/19 11/26/19 11/26/19 Range/Units 22:43 06:13 07:43 Sodium 136 L (137-145) mmol/L Chloride 90 L (98-107) mmol/L Carbon Dioxide 35 H (22-30) mmol/L BUN 46 H (9-20) mg/dL Creatinine 1.97 H (0.66-1.25) mg/dL Glucose 251 H (74-99) mg/dL POC Glucose (mg/dL) 260 H 226 H (75-99) mg/dL Assessment and Plan Assessment: Acute gastroenteritis Acute kidney injury Hypo-volemia and dehydration Type 1 diabetes mellitus, insulin-dependent, with hyperglycemia Chronic kidney disease, stage II-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 Continue with IV hydration, follow-up vitals and labs. Encourage oral hydration Labs and medication were reviewed.. Continue same treatment. Continue with symptomatic treatment. Resume home medication. Monitor lytes and vitals. DVT and GI prophylaxis. Further recommendations of the clinical course of the patient DVT prophylaxis: Subcutaneous heparin GI Prophylaxis: Pepcid PT/OT: Pending Prognosis is guarded
[2019-11-26] MEDS ORDERED: INSULIN DETEMIR (LEVEMIR) 100 UNIT/ML SYR SQ SCH (11:45)
[2019-11-26 11:51] LABS: Glucose,Whole Blood 237 mg/dL (75-99)
[2019-11-26 12:02] LABS: HCT 46.4 % (39.0-53.0); HGB 15.1 gm/dL (13.0-17.5); MCH 27.2 pg (25.0-35.0); MCHC 32.5 g/dL (31.0-37.0); MCV 83.6 fL (80.0-100.0); Mean Platelet Volume 7.4; Platelet Count 304 k/uL (150-450); RBC 5.55 m/uL (4.30-5.90); RDW 12.9 % (11.5-15.5); WBC 10.5 k/uL (3.8-10.6)
[2019-11-26] MEDS: SODIUM CHLORIDE 0.9% 1,000 ML IV SCH ×3 (12:41→23:19)
[2019-11-26 16:56] LABS: Glucose,Whole Blood 164 mg/dL (75-99)
[2019-11-26 20:33] LABS: Glucose,Whole Blood 190 mg/dL (75-99)
[2019-11-26 21:31] VITALS: RESP 16
[2019-11-27 06:30] LABS: Potassium 3.3 mmol/L (3.5-5.1)
[2019-11-27 06:42] LABS: Glucose,Whole Blood 191 mg/dL (75-99)
[2019-11-27] MEDS ORDERED: INSULIN DETEMIR (LEVEMIR) 100 UNIT/ML SYR SQ SCH (07:00)
[2019-11-27] MEDS ORDERED: Potassium Replacement Protocol 1 EACH MISC MISCELLANE PRN ×2 (07:41→09:26)
[2019-11-27 07:48] VITALS: BP 121/79; PULSE 73; TEMP 98.1
[2019-11-27] MEDS: HEPARIN SODIUM,PORCINE 5,000 UNIT/ML 1 ML VIAL SQ SCH (07:54)
[2019-11-27] MEDS: SODIUM CHLORIDE 0.9% 1,000 ML IV SCH (07:54)
[2019-11-27] MEDS: INSULIN ASPART (NovoLOG) 100 UNIT/ML VIAL SQ SCH (07:54)
[2019-11-27] MEDS ORDERED: PANTOPRAZOLE 40 MG TABLET PO SCH (09:00)
[2019-11-27] MEDS: POTASSIUM CHLORIDE ER 20 MEQ TAB.ER PO SCH ×2 (09:58→11:13)
--- NOTE | 2019-11-27 23:24 | P.DS ---
Providers Date of admission: 11/25/19 12:30 Attending physician: Freddy Walker MD Primary care physician: Lacy Ovallerecht [facility] Course: Diagnoses: Acute gastroenteritis Acute kidney injury Hypo-volemia and dehydration Type 1 diabetes mellitus, insulin-dependent, with hyperglycemia Chronic kidney disease, stage II-III. Secondary to diabetic nephropathy Diabetic neuropathy involving both feet History of bronchitis/asthma, and upon activation Hospital course: This is a pleasant 34 years old -[place] male with past medical history of penicillin dependent diabetes mellitus type 1, diabetic neuropathy in him both feet, bronchitis/asthma. This patient of Dr. Stevens. Patient problems started by heavy alcohol drinking of fifth to 1 pint of liquor alcohol on night, Next day he started throwing up all day and through the weekend with decreased oral intake. Patient had no abdominal pain or change in bowel movement. Patient was dehydrated and his creatinine was elevated at 2.3, with baseline 1.3-1.5. Patient was treated with IV fluids and his creatinine came down close to baseline and 1.6 on the day of discharge. His nausea and vomiting were stopped and he is tolerating diet well. Still no abdominal pain, no chest pain or dyspnea. And he is having regular bowel movements, no urinary problem. His dizziness improved with no fever Patient was eager to be discharged today. Problems and management plan were discussed with the patient and he verbalized understanding and acceptance Patient was found stable and can be discharged home however he needs follow-up as an outpatient. Patient was instructed to follow up with PCP Dr. Stevens within one week and patient agrees, pt agrees with appointment made for him with Dr. Stevens on 12/02 and states he will f/u ( pt is instructed to recheck his kidney function test with his doctor and he agrees) pt is encourage with oral hydration and he agrees Gen: patient is a AAOx3, no distress CVS: S1-S2, RRR, no murmur Lungs: B/L CTA, no wheezing Abdomen: soft, no distention, no tenderness, positive bowel sounds Extremity: no leg edema or induration Time spent more than 35 minutes Patient Condition at Discharge: Stable Plan - Discharge Summary Discharge Rx Participant: No New Discharge Prescriptions: New Pantoprazole [Protonix] 40 mg PO DAILY 7 Days #7 tablet. Acetaminophen Tab [Tylenol] 650 mg PO Q6HR PRN tab PRN Reason: Mild Pain Or Fever > 100.5 Continue Insulin Glargine,Hum.rec.anlog [Basaglar Kwikpen U-100] 10 unit SQ BID Discharge Medication List Insulin Glargine,Hum.rec.anlog [Basaglar Kwikpen U-100] 10 unit SQ BID 10/19/18 [History] Acetaminophen Tab [Tylenol] 650 mg PO Q6HR PRN tab 11/27/19 [Rx] Pantoprazole [Protonix] 40 mg PO DAILY 7 Days #7 tablet. 11/27/19 [Rx] Follow up Appointment(s)/Referral(s): Lacy Rodarte MD [Primary Care Provider] - 12/03/19 1:00 pm Patient Instructions/Handouts: Acute Nausea and Vomiting (DC) Activity/Diet/Wound Care/Special Instructions: low carbohydrate diet activity is limited till you see your doctor Discharge Disposition: HOME SELF-CARE
== END 2019-11-27 11:21 | disposition home or self-care (01) ==
LOC: EC 09:30 → 1SOBS 12:30
PROVIDERS: ADMIT Internal Medicine; ATTEND Internal Medicine
DX: K52.9 Noninfective gastroenteritis and colitis, unspecified (principal); N17.9 Acute kidney failure, unspecified; E86.1 Hypovolemia; E86.0 Dehydration; E10.65 Type 1 diabetes mellitus with hyperglycemia; E10.22 Type 1 diabetes mellitus with diabetic chronic kidney disease; N18.3 Chronic kidney disease, stage 3 (moderate); E10.42 Type 1 diabetes mellitus with diabetic polyneuropathy; J45.909 Unspecified asthma, uncomplicated; Z03.818 Encounter for observation for suspected exposure to other biological agents ruled out; Z87.09 Personal history of other diseases of the respiratory system; Z79.4 Long term (current) use of insulin; Z91.040 Latex allergy status; Z87.828 Personal history of other (healed) physical injury and trauma; Z87.891 Personal history of nicotine dependence; Z83.3 Family history of diabetes mellitus; Z82.49 Family history of ischemic heart disease and other diseases of the circulatory system
CPT/HCPCS: 96361 ×3; 96372 ×4; 96376; 96374; 96375; 99285; 36415; 80053; 80048 ×2; 82150; 83690; 83735 ×2; 85025; 85027; 81001; 74018; G0378 ×3; G0480; U0003; J1200; J1644 ×3; J2765; J3411; J3250; J2405; C9113 ×2; 80320

== ENCOUNTER 2020-05-18 16:05 | Emergency (ER) | payer OTHER ==
[2020-05-18 16:23] VITALS: TEMP 98.2
[2020-05-18 16:24] LABS: Glucose,Whole Blood 216 mg/dL (75-99)
[2020-05-18] MEDS ORDERED: ONDANSETRON 4 MG/2 ML VIAL IVP STA (16:49)
[2020-05-18] MEDS ORDERED: SODIUM CHLORIDE 0.9% 1,000 ML IV STA ×2 (16:49→16:50)
[2020-05-18 16:59] LABS: Basophils # (A) 0.1 k/uL (0-0.2); Basophils % (A) 1 %; Eosinophils # (A) 0.1 k/uL (0-0.7); Eosinophils % (A) 1 %; HCT 39.2 % (39.0-53.0); HGB 13.2 gm/dL (13.0-17.5); Lymphocytes # (A) 1.4 k/uL (1.0-4.8); Lymphocytes % (A) 12 %; MCH 27.2 pg (25.0-35.0); MCHC 33.5 g/dL (31.0-37.0); MCV 81.2 fL (80.0-100.0); Mean Platelet Volume 6.8; Monocytes # (A) 0.7 k/uL (0-1.0); Monocytes % (A) 6 %; Neutrophils # (A) 9.4 k/uL (1.3-7.7); Neutrophils % (A) 80 %; Platelet Count 300 k/uL (150-450); RBC 4.83 m/uL (4.30-5.90); WBC 11.8 k/uL (3.8-10.6)
--- NOTE | 2020-05-18 17:10 | ED ---
Nausea/Vomiting/Diarrhea HPI - General Chief complaint: Nausea/Vomiting/Diarrhea Stated complaint: Vomiting Time Seen by Provider: 05/18/20 16:31 Source: patient Mode of arrival: wheelchair Limitations: no limitations - History of Present Illness Initial comments: Patient is a 34-year-old male, with history of diabetes, presenting to the emergency Department with complaints of nausea and vomiting since yesterday. Patient states he was smoking marijuana yesterday and has been over the last couple days due to increased stress over the recent passing of his sister. Patient states he has had this happen before when smoking marijuana so he does not normally smoke it. Patient states he is good about checking his blood sugar levels and taking his insulin. He denies any recent fever, chills, cough, chest pain, shortness of breath. He does have some abdominal cramping but no specific area pain. He has no further complaints at this time. Upon arrival to the ER, his vital signs are stable, blood glucose is 216 in triage. - Related Data Home Medications Medication Instructions Recorded Confirmed Insulin Glargine,Hum.rec.anlog 10 unit SQ BID 10/19/18 05/18/20 [Basaglar Kwikpen U-100] Allergies Allergy/AdvReac Type Severity Reaction Status Date / Time latex Allergy Rash/Hives Verified 05/18/20 17:40 Review of Systems ROS Statement: Those systems with pertinent positive or pertinent negative responses have been documented in the HPI. ROS Other: All systems not noted in ROS Statement are negative. Past Medical History Past Medical History: Asthma, Diabetes Mellitus Additional Past Medical History / Comment(s): IDDM type I, neuropathy bilateral feet, bronchitis History of Any Multi-Drug Resistant Organisms: None Reported Past Surgical History: No Surgical Hx Reported Additional Past Surgical History / Comment(s): Glass removed from head Past Anesthesia/Blood Transfusion Reactions: No Reported Reaction Past Psychological History: No Psychological Hx Reported Smoking Status: Current every day smoker Past Alcohol Use History: Occasional Past Drug Use History: Marijuana - Past Family History Father Family Medical History: Diabetes Mellitus Additional Family Medical History / Comment(s): Diabetes runs in father's side of family Mother Family Medical History: Hypertension General Exam - General Exam Comments Initial Comments: GENERAL: Patient is well-developed and well-nourished. Patient is nontoxic and in mild distress, actively vomiting during exam. HEAD: Atraumatic, normocephalic. EYES: Pupils equal round and reactive to light, extraocular movements intact, sclera anicteric, conjunctiva are normal. Eyelids were unremarkable. ENT: TMs normal, nares patent, oropharynx clear without exudates. Moist mucous membranes. NECK: Normal range of motion, supple without lymphadenopathy or JVD. LUNGS: Unlabored respirations. Breath sounds clear to auscultation bilaterally and equal. No wheezes rales or rhonchi. HEART: Regular rate and rhythm without murmurs, rubs or gallops. ABDOMEN: Soft, nontender, normoactive bowel sounds. No guarding, no rebound. No masses appreciated. : Deferred MUSCULOSKELETAL: Normal extremities with adequate strength and normal range of motion, no pitting or edema. No clubbing or cyanosis. NEUROLOGICAL: Patient is alert and oriented x 3. Motor and sensory are also intact. Cranial nerves II through XII grossly intact. Symmetrical smile. Normal speech, normal gait. PSYCH: Normal mood, normal affect. SKIN: Warm, Dry, normal turgor, no rashes or lesions noted. Limitations: no limitations Course Vital Signs 05/18/20 16:17 Temperature 98.2 F Pulse Rate 66 Respiratory 18 Rate Blood Pressure 155/84 O2 Sat by Pulse 99 Oximetry Medical Decision Making - Medical Decision Making Patient is a 34-year-old male here with nausea and vomiting since yesterday after smoking marijuana. He is also diabetic, blood glucose on arrival was 216. Patient has had this reaction before to smoking marijuana. His vital signs are stable. Laboratory so slightly with cytosis 11.8, most likely reactive due to active vomiting during exam. Creatinine is slightly bumped from baseline at 1.8 but he has had elevated numbers in the past. Acetone is negative. Patient received some fluids and Zofran reports improvement of symptoms. He states he is comfortable to go home. I did recommend discontinuing marijuana use. I will send him home with a Zofran starter pack in case for additional nausea. He is in agreement this plan of care. He is stable for discharge, return parameters were discussed with the patient and he verbalized understanding. Case discussed with Dr. Lou. - Lab Data Result diagrams: 05/18/20 16:51 05/18/20 16:51 Lab Results 12/21/20 12/21/20 12/21/20 Range/Units 16:22 16:51 16:51 WBC 11.8 H (3.8-10.6) k/uL RBC 4.83 (4.30-5.90) m/uL Hgb 13.2 (13.0-17.5) gm/dL Hct 39.2 (39.0-53.0) % MCV 81.2 (80.0-100.0) fL MCH 27.2 (25.0-35.0) pg MCHC 33.5 (31.0-37.0) g/dL RDW 13.0 (11.5-15.5) % Plt Count 300 (150-450) k/uL MPV 6.8 Neutrophils % 80 % Lymphocytes % 12 % Monocytes % 6 % Eosinophils % 1 % Basophils % 1 % Neutrophils # 9.4 H (1.3-7.7) k/uL Lymphocytes # 1.4 (1.0-4.8) k/uL Monocytes # 0.7 (0-1.0) k/uL Eosinophils # 0.1 (0-0.7) k/uL Basophils # 0.1 (0-0.2) k/uL Sodium 136 L (137-145) mmol/L Potassium 4.0 (3.5-5.1) mmol/L Chloride 96 L (98-107) mmol/L Carbon Dioxide 28 (22-30) mmol/L Anion Gap 12 mmol/L BUN 34 H (9-20) mg/dL Creatinine 1.84 H (0.66-1.25) mg/dL Est GFR (CKD-EPI)AfAm 53 (>60 ml/min/1.73 sqM) Est GFR (CKD-EPI)NonAf 46 (>60 ml/min/1.73 sqM) Glucose 247 H (74-99) mg/dL POC Glucose (mg/dL) 216 H (75-99) mg/dL POC Glu [employer] Manager Jaki Ray Plasma Lactic Acid Domingo (0.7-2.0) mmol/L Calcium 10.3 H (8.4-10.2) mg/dL Total Bilirubin 0.6 (0.2-1.3) mg/dL AST 27 (17-59) U/L ALT 26 (4-49) U/L Alkaline Phosphatase 88 (38-126) U/L Total Protein 8.3 H (6.3-8.2) g/dL Albumin 5.0 (3.5-5.0) g/dL Acetone, Qual Negative (Negative) 05/18/20 Range/Units 16:51 WBC (3.8-10.6) k/uL RBC (4.30-5.90) m/uL Hgb (13.0-17.5) gm/dL Hct (39.0-53.0) % MCV (80.0-100.0) fL MCH (25.0-35.0) pg MCHC (31.0-37.0) g/dL RDW (11.5-15.5) % Plt Count (150-450) k/uL MPV Neutrophils % % Lymphocytes % % Monocytes % % Eosinophils % % Basophils % % Neutrophils # (1.3-7.7) k/uL Lymphocytes # (1.0-4.8) k/uL Monocytes # (0-1.0) k/uL Eosinophils # (0-0.7) k/uL Basophils # (0-0.2) k/uL Sodium (137-145) mmol/L Potassium (3.5-5.1) mmol/L Chloride (98-107) mmol/L Carbon Dioxide (22-30) mmol/L Anion Gap mmol/L BUN (9-20) mg/dL Creatinine (0.66-1.25) mg/dL Est GFR (CKD-EPI)AfAm (>60 ml/min/1.73 sqM) Est GFR (CKD-EPI)NonAf (>60 ml/min/1.73 sqM) Glucose (74-99) mg/dL POC Glucose (mg/dL) (75-99) mg/dL POC Glu International Tax Manager ID Plasma Lactic Acid Domingo 1.5 (0.7-2.0) mmol/L Calcium (8.4-10.2) mg/dL Total Bilirubin (0.2-1.3) mg/dL AST (17-59) U/L ALT (4-49) U/L Alkaline Phosphatase (38-126) U/L Total Protein (6.3-8.2) g/dL Albumin (3.5-5.0) g/dL Acetone, Qual (Negative) Disposition Clinical Impression: Dehydration, Nausea & vomiting Disposition: HOME SELF-CARE Condition: Stable Instructions (If sedation given, give patient instructions): Acute Nausea and Vomiting (ED) Additional Instructions: Please return to the Emergency Department if symptoms worsen or any other concerns. Continue to increase fluid intake, discontinue marijuana use. May take Zofran for additional nausea or vomiting. Is patient prescribed a controlled substance at d/c from ED?: No Referrals: Lacy Rodarte MD [Primary Care Provider] - 1-2 days
[2020-05-18 17:11] LABS: ALT 26 U/L (4-49); AST 27 U/L (17-59); African American GFR (CKD) 53 (>60 ml/min/1.73 sqM); Alkaline Phosphatase 88 U/L (38-126); Anion Gap 12 mmol/L; Blood Urea Nitrogen 34 mg/dL (9-20); Calcium 10.3 mg/dL (8.4-10.2); Carbon Dioxide 28 mmol/L (22-30); Chloride 96 mmol/L (98-107); Glucose 247 mg/dL (74-99); Non-African American GFR(CKD) 46 (>60 ml/min/1.73 sqM); Sodium 136 mmol/L (137-145); Total Bilirubin 0.6 mg/dL (0.2-1.3); Total Protein 8.3 g/dL (6.3-8.2)
[2020-05-18] MEDS ORDERED: ONDANSETRON 4 MG ODT STARTER PACK 2 TAB BTL PO STA (17:49)
[2020-05-18 18:00] VITALS: BP 132/73; PULSE 67; RESP 16
== END 2020-05-18 17:57 | disposition home or self-care (01) ==
LOC: EC 16:05
DX: R11.2 Nausea with vomiting, unspecified (principal); E86.0 Dehydration; E10.40 Type 1 diabetes mellitus with diabetic neuropathy, unspecified; F12.90 Cannabis use, unspecified, uncomplicated; F17.200 Nicotine dependence, unspecified, uncomplicated; Z79.4 Long term (current) use of insulin; Z91.040 Latex allergy status
CPT/HCPCS: 36415; 80053; 82009; 83605; 85025; 99284; 96374; 96361; J2405; S0119

== ENCOUNTER 2021-10-02 17:06 | Emergency (ER) | payer OTHER ==
[2021-10-02] MEDS ORDERED: SODIUM CHLORIDE 0.9% 1,000 ML IV STA ×2 (20:02→21:10)
[2021-10-02] MEDS ORDERED: ONDANSETRON 4 MG/2 ML VIAL IVP STA (20:02)
--- NOTE | 2021-10-02 20:05 | ED ---
General Adult HPI - General Chief complaint: Nausea/Vomiting/Diarrhea Stated complaint: Dehydrated Time Seen by Provider: 10/02/21 19:50 Source: patient, RN notes reviewed Mode of arrival: ambulatory Limitations: no limitations - History of Present Illness Initial comments: 36-year-old male presents to the emergency department for evaluation of nausea a nd vomiting, onset yesterday. Patient states he did have a few episodes of diarrhea yesterday as well. Patient states he is an insulin controlled diabetic. Reports blood sugar yesterday was 170 and gave himself 8 units of insulin, but has not rechecked his sugar at all today. Patient reports he has had decreased appetite. Denies any known sick contacts. No fever or chills, headache, dizziness, chest pain, cough, congestion, abdominal pain, dysuria, hematuria, back pain, or lower extremity edema. - Related Data Home Medications Medication Instructions Recorded Confirmed Insulin Glargine,Hum.rec.anlog See Protocol SQ BID PRN 10/19/18 10/02/21 [Basaglar Kwikpen U-100] Previous Rx's Medication Instructions Recorded Ondansetron Odt [Zofran Odt] 4 mg PO Q8HR PRN #10 tab 10/02/21 Allergies Allergy/AdvReac Type Severity Reaction Status Date / Time latex Allergy Rash/Hives Verified 10/02/21 21:25 Review of Systems ROS Statement: Those systems with pertinent positive or pertinent negative responses have been documented in the HPI. ROS Other: All systems not noted in ROS Statement are negative. Past Medical History Past Medical History: Asthma, Diabetes Mellitus Additional Past Medical History / Comment(s): IDDM type I, neuropathy bilateral feet, bronchitis History of Any Multi-Drug Resistant Organisms: None Reported Past Surgical History: No Surgical Hx Reported Additional Past Surgical History / Comment(s): Glass removed from head Past Anesthesia/Blood Transfusion Reactions: No Reported Reaction Past Psychological History: No Psychological Hx Reported Smoking Status: Current every day smoker Past Alcohol Use History: Occasional Past Drug Use History: Marijuana - Past Family History Father Family Medical History: Diabetes Mellitus Additional Family Medical History / Comment(s): Diabetes runs in father's side of family Mother Family Medical History: Hypertension General Exam Limitations: no limitations (Well-developed, well-nourished male in no acute distress. Initial temperature 98.3, pulse 73, respirations 20, blood pressure 175/104, pulse ox 99% on room air.) General appearance: alert, in no apparent distress Head exam: Present: atraumatic, normocephalic, normal inspection Eye exam: Present: normal appearance. Absent: scleral icterus, conjunctival injection ENT exam: Present: normal exam, normal oropharynx, mucous membranes moist Respiratory exam: Present: normal lung sounds bilaterally. Absent: respiratory distress, wheezes, rales, rhonchi, stridor Cardiovascular Exam: Present: regular rate, normal rhythm, normal heart sounds. Absent: systolic murmur, diastolic murmur, rubs, gallop, clicks GI/Abdominal exam: Present: soft, normal bowel sounds. Absent: distended, tenderness, guarding, rebound, rigid Back exam: Absent: CVA tenderness (R), CVA tenderness (L) Neurological exam: Present: alert, oriented X3, normal gait Psychiatric exam: Present: normal affect, normal mood Skin exam: Present: warm, dry, intact, normal color. Absent: rash Course Vital Signs 10/02/21 10/02/21 10/03/21 17:11 22:42 00:45 Temperature 98.3 F 99.8 F H 98.9 F Pulse Rate 73 102 H 77 Respiratory 20 16 18 Rate Blood Pressure 175/104 141/100 134/93 O2 Sat by Pulse 99 100 100 Oximetry - Reevaluation(s) Reevaluation #1: 10/02/21 22:00 Upon reevaluation, patient reports to be feeling significantly improved. However it was noted that he had not received any of his IV fluids therefore he is agreeable to remain to complete this. Did discuss hyperglycemia. Patient states he would normally take 10 units of his long-acting insulin, however we will recheck his sugar after he receives IV fluids and treat accordingly. 10/02/21 23:57 Prior to departure, patient complained of acid reflux discomfort and is requesting something to treat this. GI cocktail will be ordered. Patient has r eceived minimal amount of fluid, therefore IV was repositioned and fluids are now infusing. 10/03/21 00:43 Patient is feeling improved. He did receive 700ml IV fluids, Zofran, and GI cocktail with improvement. He will treat his blood sugar at home with his long- acting insulin. Declines any short acting insulin. Medical Decision Making - Medical Decision Making This is a 36-year-old diabetic male who presents to the emergency department for evaluation of nausea, vomiting, and diarrhea, onset yesterday. Upon exam, patient appears to be feeling somewhat poorly. He had a few episodes of vomiting while present in the emergency department. He was afebrile and denied any known sick contacts. Blood sugar has been in the 170s at home which patient states is normal for him. Did discuss my concerns with his elevated blood sugar and blood pressure in combination with his diabetes would eventually lead to poor outcome which he acknowledges. Laboratory studies were reviewed. WBC 13.4 is felt to be reactive to vomiting. BUN 37, creatinine 2.4,and GFR 33 is consistent with previous results. Blood glucose 218. Acetone negative. Patient was given IV fluids, Zofran, and a GI cocktail with improvement. Patient verbalizes readiness for discharge. Implored to follow up with PCP for further evaluation and treatment. Return parameters discussed in detail. Patient verbalizes understanding and agrees with this plan. Attending: Prasad. - Lab Data Result diagrams: 10/02/21 20:30 10/02/21 20:30 Lab Results 10/02/21 10/02/21 10/02/21 Range/Units 20:30 20:30 20:30 WBC 13.4 H (3.8-10.6) k/uL RBC 5.12 (4.30-5.90) m/uL Hgb 13.6 (13.0-17.5) gm/dL Hct 42.9 (39.0-53.0) % MCV 83.8 (80.0-100.0) fL MCH 26.6 (25.0-35.0) pg MCHC 31.8 (31.0-37.0) g/dL RDW 13.3 (11.5-15.5) % Plt Count 410 (150-450) k/uL MPV 6.7 Neutrophils % 81 % Lymphocytes % 12 % Monocytes % 5 % Eosinophils % 0 % Basophils % 0 % Neutrophils # 10.8 H (1.3-7.7) k/uL Lymphocytes # 1.6 (1.0-4.8) k/uL Monocytes # 0.7 (0-1.0) k/uL Eosinophils # 0.0 (0-0.7) k/uL Basophils # 0.0 (0-0.2) k/uL Sodium 135 L (137-145) mmol/L Potassium 4.2 (3.5-5.1) mmol/L Chloride 96 L (98-107) mmol/L Carbon Dioxide 26 (22-30) mmol/L Anion Gap 13 mmol/L BUN 37 H (9-20) mg/dL Creatinine 2.40 H (0.66-1.25) mg/dL Est GFR (CKD-EPI)AfAm 38 (>60 ml/min/1.73 sqM) Est GFR (CKD-EPI)NonAf 33 (>60 ml/min/1.73 sqM) Glucose 218 H (74-99) mg/dL POC Glucose (mg/dL) (75-99) mg/dL POC Glu Seam Taper Machine ID Calcium 10.4 H (8.4-10.2) mg/dL Total Bilirubin 0.7 (0.2-1.3) mg/dL AST 24 (17-59) U/L ALT 25 (4-49) U/L Alkaline Phosphatase 108 (38-126) U/L Total Protein 8.3 H (6.3-8.2) g/dL Albumin 5.0 (3.5-5.0) g/dL Lipase 125 (23-300) U/L Urine Color Yellow Urine Appearance Clear (Clear) Urine pH 6.0 (5.0-8.0) Ur Specific [place] 1.020 (1.001-1.035) Urine Protein 3+ H (Negative) Urine Glucose (UA) 1+ H (Negative) Urine Ketones Negative (Negative) Urine Blood Moderate H (Negative) Urine Nitrite Negative (Negative) Urine Bilirubin Negative (Negative) Urine Urobilinogen <2.0 (<2.0) mg/dL Ur Leukocyte Esterase Negative (Negative) Urine RBC 2 (0-5) /hpf Urine WBC 2 (0-5) /hpf Acetone, Qual Negative (Negative) 10/02/21 10/03/21 Range/Units 21:53 00:48 WBC (3.8-10.6) k/uL RBC (4.30-5.90) m/uL Hgb (13.0-17.5) gm/dL Hct (39.0-53.0) % MCV (80.0-100.0) fL MCH (25.0-35.0) pg MCHC (31.0-37.0) g/dL RDW (11.5-15.5) % Plt Count (150-450) k/uL MPV Neutrophils % % Lymphocytes % % Monocytes % % Eosinophils % % Basophils % % Neutrophils # (1.3-7.7) k/uL Lymphocytes # (1.0-4.8) k/uL Monocytes # (0-1.0) k/uL Eosinophils # (0-0.7) k/uL Basophils # (0-0.2) k/uL Sodium (137-145) mmol/L Potassium (3.5-5.1) mmol/L Chloride (98-107) mmol/L Carbon Dioxide (22-30) mmol/L Anion Gap mmol/L BUN (9-20) mg/dL Creatinine (0.66-1.25) mg/dL Est GFR (CKD-EPI)AfAm (>60 ml/min/1.73 sqM) Est GFR (CKD-EPI)NonAf (>60 ml/min/1.73 sqM) Glucose (74-99) mg/dL POC Glucose (mg/dL) 197 H 194 H (75-99) mg/dL POC Glu Seam Taper Machine ID Heft, Lauren Heft, Lauren Calcium (8.4-10.2) mg/dL Total Bilirubin (0.2-1.3) mg/dL AST (17-59) U/L ALT (4-49) U/L Alkaline Phosphatase (38-126) U/L Total Protein (6.3-8.2) g/dL Albumin (3.5-5.0) g/dL Lipase (23-300) U/L Urine Color Urine Appearance (Clear) Urine pH (5.0-8.0) Ur Specific [place] (1.001-1.035) Urine Protein (Negative) Urine Glucose (UA) (Negative) Urine Ketones (Negative) Urine Blood (Negative) Urine Nitrite (Negative) Urine Bilirubin (Negative) Urine Urobilinogen (<2.0) mg/dL Ur Leukocyte Esterase (Negative) Urine RBC (0-5) /hpf Urine WBC (0-5) /hpf Acetone, Qual (Negative) Disposition Clinical Impression: Nausea & vomiting, Hyperglycemia, Renal insufficiency Disposition: HOME SELF-CARE Condition: Stable Instructions (If sedation given, give patient instructions): Acute Nausea and Vomiting (ED), Diabetic Hyperglycemia (ED) Additional Instructions: Monitor your blood sugar carefully and take your insulin as prescribed. Take Zofran if needed for nausea. Do your best to increase intake of fluids. It is important to have close follow-up care. Please schedule an appointment with your PCP on Monday for a recheck. Return to the emergency department with any new, worsening, or concerning symptoms. Prescriptions: Ondansetron Odt [Zofran Odt] 4 mg PO Q8HR PRN #10 tab PRN Reason: Nausea Is patient prescribed a controlled substance at d/c from ED?: No Referrals: Lacy Rodarte MD [Primary Care Provider] - 1-2 days
[2021-10-02 20:45] LABS: Appearance,Urine Clear (Clear); Bilirubin,Urine Negative (Negative); Blood,Urine Moderate (Negative); Color,Urine Yellow; Glucose,Urine (UA) 1+ (Negative); Ketones,Urine Negative (Negative); Leukocyte Esterase,Urine Negative (Negative); Nitrite,Urine Negative (Negative); Protein,Urine 3+ (Negative); RBC,Urine 2 /hpf (0-5); Urobilinogen,Urine <2.0 mg/dL (<2.0); WBC,Urine 2 /hpf (0-5)
[2021-10-02 20:48] LABS: Basophils % (A) 0 %; Eosinophils % (A) 0 %; HCT 42.9 % (39.0-53.0); HGB 13.6 gm/dL (13.0-17.5); Lymphocytes # (A) 1.6 k/uL (1.0-4.8); Lymphocytes % (A) 12 %; MCH 26.6 pg (25.0-35.0); MCHC 31.8 g/dL (31.0-37.0); MCV 83.8 fL (80.0-100.0); Mean Platelet Volume 6.7; Monocytes # (A) 0.7 k/uL (0-1.0); Monocytes % (A) 5 %; Neutrophils # (A) 10.8 k/uL (1.3-7.7); Neutrophils % (A) 81 %; Platelet Count 410 k/uL (150-450); RBC 5.12 m/uL (4.30-5.90); RDW 13.3 % (11.5-15.5); WBC 13.4 k/uL (3.8-10.6)
[2021-10-02 20:58] LABS: ALT 25 U/L (4-49); AST 24 U/L (17-59); African American GFR (CKD) 38 (>60 ml/min/1.73 sqM); Alkaline Phosphatase 108 U/L (38-126); Anion Gap 13 mmol/L; Blood Urea Nitrogen 37 mg/dL (9-20); Calcium 10.4 mg/dL (8.4-10.2); Carbon Dioxide 26 mmol/L (22-30); Chloride 96 mmol/L (98-107); Glucose 218 mg/dL (74-99); Lipase 125 U/L (23-300); Non-African American GFR(CKD) 33 (>60 ml/min/1.73 sqM); Potassium 4.2 mmol/L (3.5-5.1); Sodium 135 mmol/L (137-145); Total Bilirubin 0.7 mg/dL (0.2-1.3); Total Protein 8.3 g/dL (6.3-8.2)
[2021-10-02] MEDS ORDERED: INSULIN REGULAR 100 UNIT/ML VIAL (IM/SQ) SQ STA (21:32)
[2021-10-02 21:54] LABS: Glucose,Whole Blood 197 mg/dL (75-99)
[2021-10-02] MEDS ORDERED: MAG HYDROX/AL HYDROX/SIMETH 30 ML, HYOSCYAMINE ELIXIR 10 ML, LIDOCAINE VISCOUS 2% 10 ML PO STA ×3 (22:11)
[2021-10-02] MEDS ORDERED: ONDANSETRON 4 MG ODT STARTER PACK 2 TAB BTL PO STA (22:30)
[2021-10-03] MEDS ORDERED: ONDANSETRON 4 MG/2 ML VIAL IVP STA (00:41)
[2021-10-03 00:50] LABS: Glucose,Whole Blood 194 mg/dL (75-99)
[2021-10-03 00:51] VITALS: BP 134/93; PULSE 77; RESP 18; TEMP 98.9
== END 2021-10-03 01:00 | disposition home or self-care (01) ==
LOC: EC 17:06
DX: R11.2 Nausea with vomiting, unspecified (principal); R73.9 Hyperglycemia, unspecified; N28.9 Disorder of kidney and ureter, unspecified; J45.909 Unspecified asthma, uncomplicated; F17.200 Nicotine dependence, unspecified, uncomplicated; Z91.040 Latex allergy status
CPT/HCPCS: 36415 ×2; 80053; 82009; 83690; 85025; 81001; 99284; 96374; 96376; 96361; J2405 ×2; S0119

== ENCOUNTER 2024-09-24 11:26 | Day surgery (SDC) | payer OTHER ==
[2024-09-23 11:51] VITALS: BMI 31.1
[~2024-09-24 11:26] MED LIST: LACTATED RINGERS 1,000 ML IV SCH; LIDOCAINE 1% (10MG/ML) FOR IV START INTRADERMA PRN; MIDAZOLAM 2 MG/2 ML VIAL IV PRN; fentaNYL (PF) 50 MCG/ML 2 ML AMP IVP PRN
[2024-09-24 12:21] LABS: Glucose,Whole Blood 98 mg/dL (70-110)
[2024-09-24] MEDS: DEXAMETHASONE SOD PHOSPHATE 4 MG/ML 1 ML VIAL IV ONE (12:23)
[2024-09-24] MEDS: ONDANSETRON 4 MG/2 ML VIAL IVP ONE (12:23)
[2024-09-24] MEDS: SODIUM CHLORIDE 0.9% 500 ML 500 ML IV ONE (12:25)
[2024-09-24] MEDS: HEPARIN SODIUM,PORCINE 5,000 UNIT/ML 1 ML VIAL SQ PRN (12:33)
[2024-09-24 12:54] LABS: ALT 16 U/L (4-49); AST 20 U/L (17-59); African American GFR (CKD) 7 (>60 ml/min/1.73 sqM); Albumin 3.7 g/dL (3.5-5.0); Alkaline Phosphatase 103 U/L (38-126); Anion Gap 9 mmol/L; Blood Urea Nitrogen 70 mg/dL (9-20); Calcium 9.6 mg/dL (8.4-10.2); Carbon Dioxide 22 mmol/L (22-30); Chloride 110 mmol/L (98-107); Glucose 94 mg/dL (74-99); Non-African American GFR(CKD) 6 (>60 ml/min/1.73 sqM); Potassium 4.9 mmol/L (3.5-5.1); Sodium 141 mmol/L (137-145); Total Bilirubin 0.5 mg/dL (0.2-1.3); Total Protein 6.7 g/dL (6.3-8.2)
[2024-09-24] MEDS ORDERED: PHENYLEPHRINE-0.9% NACL SYG 1,000 MCG/10 ML SYRINGE ONE (12:57)
[2024-09-24] MEDS ORDERED: GLYCOPYRROLATE 0.2 MG/ML 2 ML VIAL ONE (12:57)
[2024-09-24] MEDS ORDERED: NEOSTIGMINE 1 MG/ML 10 ML VIAL ONE (12:57)
[2024-09-24] MEDS ORDERED: ROCURONIUM 10 MG/ML (5 ML VIAL) IV ONE (12:57)
[2024-09-24] MEDS ORDERED: SUCCINYLCHOLINE CHLORIDE 200 MG/10 ML VIAL IV ONE (12:57)
[2024-09-24] MEDS ORDERED: LIDOCAINE 1% INJ 10MG/ML (20 ML MDV) ONE (12:57)
[2024-09-24] MEDS ORDERED: fentaNYL (PF) 50 MCG/ML 2 ML AMP ONE (12:57)
[2024-09-24] MEDS ORDERED: PROPOFOL 10 MG/ML 20 ML VIAL IV ONE (12:57)
[2024-09-24] MEDS: ceFAZolin 2 GM in DEXTROSE 5% IN WATER 50 ML IVPB PRN (13:00)
[2024-09-24] MEDS: LIDOCAINE 1%-EPI 1:100,000 20 ML VIAL SQ ONE (13:15)
[2024-09-24 13:20] LABS: Basophils # (A) 0.05 10*3/uL (0.00-0.10); Basophils % (A) 0.9 %; Eosinophils # (A) 0.21 10*3/uL (0.04-0.35); Eosinophils % (A) 3.7 %; HCT 27.7 % (39.6-50.0); HGB 9.1 g/dL (13.0-17.0); Lymphocytes # (A) 1.42 10*3/uL (0.90-5.00); Lymphocytes % (A) 25.1 %; MCHC 32.9 g/dL (32.0-37.0); MCV 79.1 fL (80.0-97.0); Mean Platelet Volume 8.7 fL (9.5-12.2); Monocytes # (A) 0.49 10*3/uL (0.20-1.00); Monocytes % (A) 8.7 %; Neutrophils # (A) 3.47 10*3/uL (1.80-7.70); Neutrophils % (A) 61.4 %; Platelet Count 378 10*3/uL (140-440); RDW 14.1 % (11.5-14.5); WBC 5.65 10*3/uL (4.50-10.00)
[2024-09-24] MEDS: MINERAL OIL 1 APPLIC/ML OIL MISCELLANE ONE (13:20)
[2024-09-24] MEDS: HYDROmorphone 0.5 MG/0.5 ML SYRINGE IVP PRN (13:45)
--- NOTE | 2024-09-24 13:45 | P.OP ---
Date of Procedure: 09/24/24 Preoperative Diagnosis: Chronic kidney disease requiring dialysis Postoperative Diagnosis: Chronic kidney disease requiring dialysis Procedure(s) Performed: Laparoscopic peritoneal dialysis catheter insertion with omentopexy Implants: Peritoneal dialysis catheter Anesthesia: MARILUZ Surgeon: Moraima Brady Pathology: none sent Condition: stable Disposition: same day Indications for Procedure: 39-year-old male with worsening kidney disease being followed by nephrology. He has kidney disease requiring dialysis. He has opted for peritoneal dialysis catheter placement for peritoneal dialysis. Risks, benefits and alternatives were provided to the patient and all questions answered. Operative Findings: Appropriate flush and withdrawal from PD cath Description of Procedure: Patient was brought to the operating suite and placed in supine position on the operating table. Sedation was provided by anesthesia and the patient underwent endotracheal intubation. The patient was prepped and draped in regular sterile fashion. Incision was made at Talavera's point and the abdomen was entered under direct visualization using a 5 mm Visiport. Pneumoperitoneum was achieved. Additional 5 mm port was placed in the right upper quadrant. Omentum was grasped and elevated towards the falciform ligament. A Serafin Huber device was used in the subxiphoid region and with a 2-0 Vicryl, the omentum was secured to the abdominal wall. Omentopexy was completed at this point. An additional 5 mm incision was made approximately 3 cm medial and inferior to the initial Talavera's point incision site. A long 5 mm trocar was then placed through this incision site and it was run along the peritoneum with exit in the infraumbilical region. Through the port, peritoneal dialysis catheter was inserted after mineral oil was applied. The port was then removed and the cuff was noted to sit in the preperitoneal space. Appropriate flush was noted with saline. At this point, the initial 5 mm trocar site was removed and a hemostat was placed through the subcutaneous tissue to the insertion site of the catheter and the catheter was grasped and pulled through the subcutaneous tract towards the initial incision site. At this point pneumoperitoneum was released and all ports removed from the abdomen. All skin incisions were closed with 4-0 Vicryl subcuticular suture. No evidence of kinking noted. Sterile dressing was applie d. The patient was awakened in the operating suite and taken to postanesthesia care unit in stable condition.
[2024-09-24 13:54] VITALS: TEMP 97.2
[2024-09-24 14:57] VITALS: BP 148/83; PULSE 67; RESP 18
== END 2024-09-24 15:15 | disposition home or self-care (01) ==
LOC: OR 11:26
PROVIDERS: ATTEND Surgery
DX: I12.0 Hypertensive chronic kidney disease with stage 5 chronic kidney disease or end stage renal disease (principal); E11.22 Type 2 diabetes mellitus with diabetic chronic kidney disease; N18.6 End stage renal disease; J45.909 Unspecified asthma, uncomplicated; Z99.2 Dependence on renal dialysis; Z79.4 Long term (current) use of insulin; Z79.899 Other long term (current) drug therapy; Z91.040 Latex allergy status
CPT/HCPCS: 80053; 85025; 49324; C1752; J0330; J1644; J1100; J2710; J0690; J2405; J2003; J3010; J2704; J1171; J2371; J1596